=== PATIENT | male | born 1955 | race Caucasian/White ===

== ENCOUNTER 2017-03-16 23:37 | Inpatient (IN) ==
--- NOTE | 2017-03-17 00:03 | Emergency Department Note ---
START Narrative - START START: I examined this patient and my medical decision-making was reviewed with the PAYROLL OFFICER/PA/Advanced Practice Nurse/Resident Physician. I agree with the documented findings, disposition and treatment plan as described except to the extent set forth below. ED attending note: Patient seen with emergency medicine resident Dr. Boogie. Please see a copy of his note for details of the H&P, evaluation, management and disposition of this patient. We independently had [id number] contact with the patient Briefly: 61-year-old male smoker COPD coronary artery disease with one prior stent 2 years ago presents with 2 days of chest pain. Some mild worsening. Patient's EKG shows sinus rhythm with nonspecific ST-T changes. Plan his chest x-ray troponin duo nebs among other screening labs with admission. Provided 30 minutes critical care service for this patient had aspirin given in the ED. Admission pending
[2017-03-17] MEDS ORDERED: Nitroglycerin 0.4 MG TAB.SUBL SL PRN (00:06)
--- NOTE | 2017-03-17 00:07 | Emergency Department Note ---
Disposition Clinical Impression: NSTEMI, initial episode of care Disposition: Admitted As Inpatient Condition: Undetermined Referrals: NO,PCP [Primary Care Provider] - Forms: ED Satisfaction Letter Time of Disposition: 00:58 Chest Pain HPI - General Chief Complaint: ED Chest Pain Stated Complaint: chest pain Time Seen by Provider: 03/16/17 23:52 Source: patient, family Mode of arrival: ambulatory Limitations: no limitations Vital Signs Reviewed: Yes Nursing Notes Reviewed: Yes - History of Present Illness HPI Narrative: 61-year-old male with extensive history of coronary artery disease, hypertension , hyperlipidemia arrives to [facility] emergency Department complaining of retrosternal chest pain that is nonradiating as well as difficulty breathing. The patient does have a history of COPD as well. The patient's O2 saturation is 84% on room air initially. He was placed on 2 L nasal cannula which malika to 92%. The patient does have diffuse wheezing noted. The patient states this does not feel similar to his previous CT. The patient has been experiencing bilateral lower extremity swelling over the course of the past 2 weeks. He actually was increasing his Lasix by his PCP. The patient has been taking his medication as prescribed. He denies any other complaints at this time. Pt complaint: chest pain Onset (ago): day(s) (3) Duration: intermittent, gradually worsening Onset: during rest Pain Location: substernal Severity: moderate Severity scale (1-10): 8 Quality: tightness Pain Radiation: none Improves with: nothing Worsens with: nothing Associated symptoms: Reports: dyspnea Treatments prior to arrival chest pain: none - Related Data On Oral Contraceptives: No Allergies Allergy/AdvReac Type Severity Reaction Status Date / Time Penicillins Allergy Hives Verified 06/16/15 15:07 Sulfa (Sulfonamide Allergy Hives Verified 06/16/15 15:07 Antibiotics) All systems ED: reviewed and negative except as stated. Constitutional: Denies: fever, chills, weakness, weight change Eyes: Denies: eye pain, eye discharge, vision change ENT ED: Denies: ear pain, throat pain, dental pain, hearing loss, epistaxis, congestion, dysphagia Cardiovascular: Reports: chest pain, dyspnea on exertion, edema. Denies: palpitations, syncope Respiratory: Reports: dyspnea, wheezes. Denies: cough, hemoptysis, stridor Gastrointestinal: Denies: abdominal pain, nausea, vomiting, diarrhea, constipation, hematemesis, melena, hematochezia Genitourinary: Denies: urgency, dysuria, frequency, hematuria Musculoskeletal: Denies: back pain, neck pain, arthralgia, myalgia Integumentary: Denies: rash, abrasion, lesions Neurological: Denies: headache, weakness, numbness, paresthesias, confusion, abnormal gait, vertigo Chest Pain PMH - Past Medical History Medical history: Reports: COPD, diabetes, myocardial infarction - Social History Smoking Status: Current every day smoker Alcohol use: Reports: none Drug use: Reports: none Physical Exam - General Limitations: no limitations General appearance: alert, in no apparent distress - Head Head exam: atraumatic, normocephalic, normal inspection - Neck Neck exam: Present: normal inspection, full ROM, trachea midline - Chest Chest inspection: Present: normal inspection, symmetric chest wall rise - Respiratory Respiratory exam: Present: respiratory distress (mild), wheezes, accessory muscle use - Cardiovascular Cardiovascular exam: Present: regular rate, normal rhythm, normal heart sounds - Abdominal Exam Abdominal exam: Present: soft, Non-Tender. Absent: tenderness, distention, guarding, rebound, rigidity - Extremities Exam Extremities exam: Present: full ROM, pedal edema (2+ pitting). Absent: tenderness - Neurological Exam Neurological exam: Present: alert, oriented X3 - Skin Skin exam: Present: warm, dry, intact, normal color Course Vital Signs Temperature 98.0 F 03/16/17 23:38 Pulse Rate 91 03/16/17 23:38 Respiratory Rate 18 03/16/17 23:38 Blood Pressure 191/78 03/16/17 23:38 O2 Sat by Pulse Oximetry 88 03/16/17 23:38 Temperature 98.0 F 03/16/17 23:38 Pulse Rate 86 03/17/17 00:51 Respiratory Rate 20 03/17/17 00:51 Blood Pressure 170/92 03/17/17 00:51 O2 Sat by Pulse Oximetry 96 03/17/17 00:51 Oxygen Delivery Oxygen Delivery Nasal Cannula Chest Pain - MDM Narrative Medical decision making narrative: Patient has an elevated troponin of 0.07. No previous history of troponin or record. The patient does have improvement of his renal function. The patient' s EKG demonstrates no acute findings. The patient is hypotensive. We will administer nitroglycerin as well as 1 dose of labetalol. The patient's latest blood pressure demonstrates a systolic of 171 after receiving the nitroglycerin. We will admit the patient to the hospitalist for further workup. Accepted by Dr. Hawthorne. She requested IV Lasix. - Medical Records Medical records reviewed: Yes I reviewed the patient's medical records. - Lab Data Lab results reviewed: Yes I reviewed the patient's lab results. Result diagrams: 03/16/17 23:45 03/16/17 23:45 Lab Results 03/16/17 03/16/17 03/16/17 Range/Units 23:45 23:45 23:45 WBC 12.1 H (4.3-11.1) K/mcL RBC 5.19 (4.19-5.50) M/mcL Hgb 14.1 (12.9-16.9) g/dL Hct 45.4 (37.5-50.1) % MCV 87.5 (83.0-100.0) fL MCH 27.2 L (28.0-33.3) pg MCHC 31.1 L (31.6-35.5) g/dL RDW 14.7 H (11.5-14.5) % Plt Count 376 (140-400) K/mcL MPV 9.2 L (9.4-12.4) fL Immature Gran % 0.2 (0-4) % Seg Neutrophils % 62.7 % Lymphocytes % 24.4 % Monocytes % 9.3 % Eosinophils % 2.7 % Basophils % 0.7 % Neutrophils # 7.6 (1.6-8.9) K/mcL Lymphocytes # 3.0 (0.6-4.6) K/mcL Monocytes # 1.1 (0.0-1.3) K/mcL Eosinophils # 0.3 (0.0-0.6) K/mcL Basophils # 0.1 (0.0-0.2) K/mcL Immature Plt Fraction 2.7 (1.1-6.1) % Sodium 138 (136-145) mEq/L Potassium 4.0 (3.5-4.5) mEq/L Chloride 97 L (98-109) mEq/L Carbon Dioxide 31 H (19-29) mEq/L BUN 17 (8-26) mg/dL Creatinine 1.46 H (0.72-1.25) mg/dL Est GFR ( Amer) 59 L (> 60) Est GFR (Non-Af Amer) 49 L (> 60) BUN/Creatinine Ratio 12 (6-26) Glucose 107 H (70-99) mg/dL Calculated Osmolality 288 (280-300) Calcium 9.6 (8.6-10.8) mg/dL Troponin I 0.07 H* (0-0.03) ng/mL - Radiology Data Radiology results reviewed: Yes I reviewed the patient's radiology results. - EKG Data EKG attestation: Yes I reviewed and interpreted this EKG. EKG results narrative: Heart rate 90 bpm. WI interval 144 ms. QTc 381 ms. Normal axis. Normal sinus rhythm. No ST elevation or ST depression noted. Recent EKG on record.
[2017-03-17 00:08] LABS: Basophils # 0.1 K/mcL (0.0-0.2); Basophils % 0.7 %; Eosinophils # 0.3 K/mcL (0.0-0.6); Eosinophils % 2.7 %; Hematocrit 45.4 % (37.5-50.1); Hemoglobin 14.1 g/dL (12.9-16.9); Immature Granulocytes % 0.2 % (0-4); Immature Platelets 2.7 % (1.1-6.1); Lymphocytes % 24.4 %; Mean Corpuscular HGB Conc 31.1 g/dL (31.6-35.5); Mean Corpuscular Hemoglobin 27.2 pg (28.0-33.3); Mean Corpuscular Volume 87.5 fL (83.0-100.0); Mean Platelet Volume 9.2 fL (9.4-12.4); Monocytes # 1.1 K/mcL (0.0-1.3); Monocytes % 9.3 %; Neutrophils # 7.6 K/mcL (1.6-8.9); Platelet Count 376 K/mcL (140-400); Red Blood Count 5.19 M/mcL (4.19-5.50); Red Cell Distribution Width 14.7 % (11.5-14.5); Segmented Neutrophils % 62.7 %
[2017-03-17] MEDS ORDERED: Aspirin 325 MG TABLET PO ONE (00:08)
[2017-03-17 00:20] LABS: Calcium 9.6 mg/dL (8.6-10.8)
[2017-03-17] MEDS ORDERED: Furosemide 40 MG/4 ML VIAL IVP ONE (00:50)
[2017-03-17] MEDS ORDERED: *HR* Labetalol 20 MG/4 ML SYRINGE IVP ONE (00:55)
[2017-03-17] MEDS ORDERED: *HR* Heparin 5,000 UNIT/ML VIAL IVP PRN ×2 (00:56)
[2017-03-17] MEDS ORDERED: *HR* Heparin 5,000 UNIT/ML VIAL IVP ONE (00:56)
[2017-03-17] MEDS ORDERED: Heparin 25,000 UNIT/500 ML D5W 25,000 UNIT/500 ML MLS IVC SCH (01:00)
[2017-03-17 01:19] LABS: Prothrombin Time 10.3 Seconds (9.4-12.1)
[2017-03-17 01:22] LABS: Activated Partial Thrombo Time 30.9 Seconds (26.0-36.0)
[2017-03-17] MEDS ORDERED: Naloxone 0.4 MG/ML INJ IVP PRN (02:44)
[2017-03-17] MEDS ORDERED: Ondansetron 4 MG/2 ML VIAL IVP PRN (02:44)
[2017-03-17] MEDS ORDERED: Dextrose Gel 15 GM PO PRN ×2 (02:48)
[2017-03-17] MEDS ORDERED: *HR* Dextrose 50 % in Water (Syg) 50 ML SYRINGE IVP PRN (02:48)
[2017-03-17] MEDS ORDERED: D5% in Water 1,000 ML IVC PRN (02:48)
--- NOTE | 2017-03-17 02:55 | Internal Med History&Physical ---
Date of Encounter: 03/17/17 Time of Encounter: 02:20 Assessment and Plan (1) NSTEMI (non-ST elevated myocardial infarction) Current visit: Yes Status: Acute No prior history of elevated TNI in chart mild elevation TNI can be secondary to demand ischemia, given CKD and CHF decompensation, however given clinical presentation and history of CAD, will admit to rule out ACS F/U Serial TNI Heparin gtt initiated by ER follow up cardiology consultation Aspirin f/u lipid panel O2 supplementation as needed nitroglycerin SL prn chest pain continue tele monitoring NPO at this time, awaiting cardiology evaluation Please resume home medications after verifying them in the morning (2) CAD (coronary artery disease) Current visit: Yes Status: Chronic History of CAD s/p stent placement five years ago as per patient resume home medications after verification f/u cardiology consultation Qualifiers: Coronary Disease-Associated Artery/Lesion type: unspecified vessel or lesion type [place] vs. transplanted heart: unspecified whether [place] or transplanted heart Associated angina: angina presence unspecified Qualified Code(s): I25.10 - Atherosclerotic heart disease of [place] coronary artery without angina pectoris (3) Acute exacerbation of CHF (congestive heart failure) Current visit: Yes Status: Acute 2D echo from 01/03/17 reported LVEF of 60% with Normal LV chamber size and function. Mild LV diastolic dysfunction will continue Lasix 40mg IV BID monitor I/Os daily weights fluid restriction diet once diet is resumed O2 supplementation as needed Qualifiers: Congestive heart failure type: diastolic Qualified Code(s): I50.33 - Acute on chronic diastolic (congestive) heart failure (4) HTN (hypertension) Current visit: Yes Status: Chronic Noted to be hypertensive Unsure of what his home medications are Will start Hydralazine 10mg IV q6h prn SBP>160 will closely monitor BP resume home meds after verification Qualifiers: Hypertension type: essential hypertension Qualified Code(s): I10 - Essential (primary) hypertension (5) Diabetes mellitus Current visit: Yes Status: Chronic hold oral antihyperglycemics at this time (pt reports of taking metformin) started sliding scale insulin algorithm as needed monitor accuchecks q6h while NPO and ACHS once diet is resumed Qualifiers: Diabetes mellitus type: type 2 Diabetes mellitus complication status: with unspecified complications Diabetes mellitus intermediate project manager insulin use: unspecified nursing home insulin use status Qualified Code(s): E11.8 - Type 2 diabetes mellitus with unspecified complications (6) Tobacco abuse Current visit: Yes Status: Acute Smoking cessation counseling provided patient not ready to quit at this time he reports of having hives to nicotine patch (7) DVT prophylaxis Current visit: Yes Status: Acute anticoagulated with heparin gtt Internal Medicine - H&P: HPI Chief complaint: SHORTNESS OF BREATH/CHEST PAIN Plans for Post Hospital Care: Home History of present illness: Mr. Joseph is a 61 year old male with PMH of DM, CAD s/p stent placement, CHF , COPD, CKD, chronic tobacco abuse, HTN, HLD who presents to the ER for management of shortness of breath and chest pain. Patient states he should have come to the ER four days ago because he has had his current symptoms for the last four days. Reports of having localized substernal chest pain for the last four days associated with shortness of breath. He states his home pulse ox reported his O2 level of 76 which prompted his visit to the ER. Upon arrival, he was placed on O2 supplementation with improvement in his respiratory status. He also received nitroglycerin SL which relieved his chest pain. He also received one dose of IV lasix in the ER. At this time, he is resting comfortably in bed and saturating 98% on 2L NC. Reports of feeling significantly better since arrival. Denies any chest pain at this time. States he had a CA five years ago and had a stent placed in [place] and has not seen a counselor camp since then. Reports of being an everyday smoker. Not on home oxygen. Denies any discomfort at this time. Patient does not recall his home medications. Please verify home meds in am and restart them as needed Past Med Surg Social Fam HX - Past Medical History Medical history: COPD, diabetes, myocardial infarction - Social History Smoking Status: Current every day smoker Smokeless Tobacco Status: No Alcohol use: none Drug use: none Internal Medicine - H&P: Meds Allergies Penicillins Allergy (Verified 06/16/15 15:07) Hives Sulfa (Sulfonamide Antibiotics) Allergy (Verified 06/16/15 15:07) Hives All Systems PM: A 10-system review of systems was performed and is negative for pertinent findings except as documented above in the HPI. - Constitutional Constitutional: as per HPI - Constitutional Vitals: Temp Pulse Resp BP Pulse Ox 98.0 F 84 16 175/95 95 03/17/17 02:29 03/17/17 02:29 03/17/17 02:29 03/17/17 02:29 03/17/17 02:29 General appearance: Present: cooperative, A&O X 3, no acute distress, answers questions appropriately - Head Head exam: Present: atraumatic, normocephalic - Eye Eye exam: Present: normal appearance, conjuntiva pink, sclera anicteric - Respiratory Respiratory exam: Absent: respiratory distress, wheezes (bibasilar crackles ) - Cardiovascular Cardiovascular exam: Present: RRR, +S1, +S2. Absent: diastolic murmur, gallop, rubs, systolic murmur - GI/Abdominal GI/Abdominal exam: Present: normal bowel sounds, soft, no peritoneal signs. Absent: distended, tenderness - Extremities Exam Extremities exam: Present: pedal edema (pitting edema in bilateral lower extremities), warm, radial pulses palpable and symetrical. Absent: calf tenderness - Neurological Exam Neurological exam: Present: oriented X3, no focal deficits - Psychiatric Psychiatric exam: Present: normal affect, normal mood Internal Med - H&P Results - Labs CBC & Chem 7: 03/16/17 23:45 03/16/17 23:45
[2017-03-17] MEDS ORDERED: Ipratropium/Albuterol Neb 3 ML IH PRN (02:56)
[2017-03-17 06:17] LABS: Basophils # 0.1 K/mcL (0.0-0.2); Basophils % 0.9 %; Eosinophils # 0.2 K/mcL (0.0-0.6); Hematocrit 43.3 % (37.5-50.1); Hemoglobin 13.5 g/dL (12.9-16.9); Immature Granulocytes % 0.2 % (0-4); Lymphocytes # 1.9 K/mcL (0.6-4.6); Lymphocytes % 19.9 %; Mean Corpuscular HGB Conc 31.2 g/dL (31.6-35.5); Mean Corpuscular Hemoglobin 26.9 pg (28.0-33.3); Mean Corpuscular Volume 86.4 fL (83.0-100.0); Mean Platelet Volume 9.1 fL (9.4-12.4); Monocytes # 0.8 K/mcL (0.0-1.3); Monocytes % 7.9 %; Neutrophils # 6.6 K/mcL (1.6-8.9); Platelet Count 316 K/mcL (140-400); Red Blood Count 5.01 M/mcL (4.19-5.50); Red Cell Distribution Width 14.6 % (11.5-14.5); Segmented Neutrophils % 69.1 %
[2017-03-17] MEDS: Insulin LISPRO 300 UNITS/3 ML VIAL SQ SCH ×3 (06:29→16:31)
[2017-03-17] MEDS: *HR* Metoprolol 5 MG/5 ML VIAL IVP SCH ×2 (06:30→16:42)
[2017-03-17 06:31] LABS: BUN/Creatinine Ratio 12 (6-26); Blood Urea Nitrogen 16 mg/dL (8-26); Calcium 9.3 mg/dL (8.6-10.8); Carbon Dioxide 30 mEq/L (19-29); Chloride 97 mEq/L (98-109); Glucose 122 mg/dL (70-99); Osmolality,Calculated 284 (280-300); Potassium 3.6 mEq/L (3.5-4.5); Sodium 136 mEq/L (136-145); eGFR For African Americans > 60 (> 60); eGFR For Non-African Americans 55 (> 60)
[2017-03-17 06:32] LABS: Chol/HDL Ratio 4.4 (0-4.9); Magnesium 1.7 mg/dL (1.6-2.6); Phosphorous 2.6 mg/dL (2.3-4.7)
[2017-03-17] MEDS: Aspirin 81 MG TAB.CHEW PO SCH (08:33)
[2017-03-17] MEDS: Furosemide 40 MG/4 ML VIAL IVP SCH ×2 (08:34→16:31)
--- NOTE | 2017-03-17 09:18 | Cardiology Consult Note ---
Date of Encounter: 03/17/17 Time of Encounter: 09:14 Assessment and Plan (1) Troponin level elevated Current Visit: Yes Status: Acute Very mild, flat troponin elevation in setting of A/CKD and respiratory insufficiency. PUmonary congestion on CXR - ? mild CHF. Single dose of Rhonchi, low pulse ox, likely COPD exacerbation. Recommend obtain echocardiogram. Further recommendations based upon results. Your medical managment re: COPD, ANAHI. Patient requesting to leave [facility]. He states he cannot go much longer without smoking a cigarette. I explained to him that further recommendations would be made based upon results of echocardiogram. Okay to stop Heparin drip - change to DVT prophylaxis. Given history of CAD, recommend aspirin/statin/bb therapy. Tobacco cessation is imperative, but he is not interested in quitting. (2) CAD (coronary artery disease) Current Visit: Yes Status: Chronic Qualifiers: Coronary Disease-Associated Artery/Lesion type: unspecified vessel or lesion type [place] vs. transplanted heart: unspecified whether [place] or transplanted heart Associated angina: angina presence unspecified Qualified Code(s): I25.10 - Atherosclerotic heart disease of [place] coronary artery without angina pectoris Discussion w patient/family: The assessment and plan as outlined above was discussed with the patient and/or family members who expressed understanding and agreement. All questions were answered. Thank you for involving us in the care of your patient. Please call with any questions. History of Present Illness Consult date: 03/17/17 Requesting physician: Irma Hawthorne Consult reason: Chest pain, mild troponin elevation Chief complaint: Dyspnea, chest discomfort History of present illness: Mr. Joseph is a 61 year old male who presents with 4 days of increasing dyspnea and chest discomfort. Describes chronic dyspnea, but states worse. He will not clearly describe chest discomfort - from what I can gather, substernal, no radiation, no n/v, no diaphoresis. Possible worse with cough. Prior CAD s/p PCI at a [facility] about 4 years ago. Mild, flat troponin 0.07, 0.07. Cr 1.46, now 1.33 Per reports, SpO2 at home 70s%. Reports 1 PPD, not interested in cessation. Today, reports he feels better. Past Med Surg Social Fam HX - Past Medical History Medical history: COPD, diabetes, myocardial infarction Psychiatric history: anxiety - Social History Smoking Status: Current every day smoker Packs per day: 1 Smokeless Tobacco Status: No Alcohol use: none Drug use: none - Family History Mother Living Status: Age at : 77 Hx Family Cardiac Disorders: Yes Hx Family Respiratory Disorders: No Hx Family Cancer: No Hx Family GI Disorders: Yes Medications and Allergies Allergies Penicillins Allergy (Verified 06/16/15 15:07) Hives Sulfa (Sulfonamide Antibiotics) Allergy (Verified 06/16/15 15:07) Hives All Systems Review: A 10-system review of systems was performed and is negative for pertinent findings except as documented above in the HPI. - Cardiovascular Cardiovascular: as per HPI, chest pain at rest - Respiratory Respiratory: cough, dyspnea Physical Examination Vital Signs, Last 4 Hours Temp Pulse Resp BP Pulse Ox 03/17/17 06:39 98.3 F 80 16 157/76 91 General: Conversant, No Apparent Distress HEENT: Atraumatic, Normocephaly, Mucus Membranes Moist Neck: No JVD Cardiac: Reg Rate and Rhythm, Normal S1 and S2, No Murmur Lungs: Other (Scattered rhonchi. No wheezing. ) Abdomen: Soft, Non-Tender, Other (obese) Skin: No rashes noted on visualized skin Musculoskeletal: No Chest Wall Tenderness Extremities: No Clubbing, No Cyanosis, Other (Mild edema. ) Results 03/17/17 06:09 03/17/17 06:09 Lab Results 03/17/17 03/17/17 03/17/17 06:09 06:09 06:09 WBC 9.5 Hgb 13.5 Hct 43.3 Plt Count 316 APTT Sodium 136 Potassium 3.6 Chloride 97 L Carbon Dioxide 30 H BUN 16 Creatinine 1.33 H Glucose 122 H Calcium 9.3 Magnesium 1.7 Troponin I 03/17/17 03/17/17 06:09 07:55 WBC Hgb Hct Plt Count APTT 36.0 Sodium Potassium Chloride Carbon Dioxide BUN Creatinine Glucose Calcium Magnesium Troponin I 0.07 H* - Imaging and Cardiology Chest Xray: report reviewed - EKG Interpretation EKG results cardiology: other (ECG(s) cannot be found - not in epiphany, not in meditech) Consult Discharge Plan - Plan Referrals: Madelaine Russell, GAS CONTROLLER [Primary Care Provider] -
--- NOTE | 2017-03-17 10:55 | Event Note ---
Date of Encounter: 03/17/17 Time of Encounter: 10:51 TTE reviewed, which demonstrates normal LV function. No segmental wall motion abnormalities. Flat, adynamic troponin elevation likely related to A/CKD and hypoxemia. Given normal LV function on TTE, recommend medical therapy. Currently, patient chest pain free. Recommend aspirin/statin/bb therapy. Risk factor modification emphasized - tobacco cessation is imperative. No further inpatient cardiology recommendations appear necessary at this time. Follow up with cardiology in the office. Please call with any questions or concerns.
[2017-03-17] MEDS: Metoprolol XL (24 HR) Succ 25 MG TAB.ER.24H PO SCH (11:03)
--- NOTE | 2017-03-17 11:20 | Internal Med Progress Note ---
Date of Encounter: 03/17/17 Time of Encounter: 11:20 - Assessment and plan (1) NSTEMI (non-ST elevated myocardial infarction) Current Visit: Yes Status: Acute Assessment and plan: We will continue with aspirin, metoprolol and Lipitor, serial troponins every 6 hours for a total of 3 sets. Appreciate cardiology recommendations. (2) Acute exacerbation of CHF (congestive heart failure) Current Visit: Yes Status: Acute Assessment and plan: IV Lasix twice a day. Daily weights. Fluid restriction. Sodium restricted diet. Qualifiers: Congestive heart failure type: diastolic Qualified Code(s): I50.33 - Acute on chronic diastolic (congestive) heart failure (3) HTN (hypertension) Current Visit: Yes Status: Chronic Assessment and plan: Continue oral antihypertensive medication. Qualifiers: Hypertension type: essential hypertension Qualified Code(s): I10 - Essential (primary) hypertension (4) Tobacco abuse Current Visit: Yes Status: Acute Assessment and plan: I have offered smoking cessation counseling. Patient is refractory at this time. He does not want nicotine replacement therapy. (5) DVT prophylaxis Current Visit: Yes Status: Acute (6) Diabetes mellitus Current Visit: Yes Status: Chronic Assessment and plan: Insulin sliding scale. Qualifiers: Diabetes mellitus type: type 2 Diabetes mellitus complication status: with unspecified complications Diabetes mellitus longterm insulin use: unspecified gear straightener insulin use status Qualified Code(s): E11.8 - Type 2 diabetes mellitus with unspecified complications (7) COPD (chronic obstructive pulmonary disease) Current Visit: Yes Status: Acute Assessment and plan: Inhaled albuterol as needed. Qualifiers: COPD type: chronic bronchitis Chronic bronchitis type: simple Qualified Code(s): J41.0 - Simple chronic bronchitis (8) CAD (coronary artery disease) Current Visit: Yes Status: Chronic Qualifiers: Coronary Disease-Associated Artery/Lesion type: unspecified vessel or lesion type [place] vs. transplanted heart: unspecified whether [place] or transplanted heart Associated angina: angina presence unspecified Qualified Code(s): I25.10 - Atherosclerotic heart disease of [place] coronary artery without angina pectoris - Subjective Interval history: Patient came to the hospital yesterday for evaluation of chest pain described as midsternal, pressure-like, severe occurring at rest. The pain has resolved. He says he does not have chest pain provide 5/10 chest pressure in the middle of his chest right now. - Constitutional Vitals: Temp Pulse Resp BP Pulse Ox 98 F 89 16 160/87 91 03/17/17 11:13 03/17/17 11:13 03/17/17 11:13 03/17/17 11:13 03/17/17 11:13 General appearance: Present: cooperative, A&O X 3, no acute distress, answers questions appropriately - Eye Eye exam: Present: PERRL, conjuntiva pink, sclera anicteric Pupils: Present: PERRL - Respiratory Respiratory exam: Present: CTAB. Absent: accessory muscle use, rales, rhonchi, wheezes - Cardiovascular Cardiovascular exam: Present: RRR, +S1, +S2. Absent: diastolic murmur, gallop, rubs, systolic murmur - GI/Abdominal GI/Abdominal exam: Present: normal bowel sounds, soft, no peritoneal signs. Absent: distended, tenderness - Extremities Exam Extremities exam: Present: warm, radial pulses palpable and symetrical. Absent : calf tenderness, cyanotic, pedal edema - Skin Skin exam: Present: dry, intact Internal Medicine: Result - Labs CBC & Chem 7: 03/17/17 06:09 03/17/17 06:09 Labs: Short CBC 03/17/17 Range/Units 06:09 WBC 9.5 (4.3-11.1) K/mcL Hgb 13.5 (12.9-16.9) g/dL Hct 43.3 (37.5-50.1) % Plt Count 316 (140-400) K/mcL Neutrophils # 6.6 (1.6-8.9) K/mcL BMP 03/17/17 06:09 Sodium 136 Potassium 3.6 Chloride 97 L Carbon Dioxide 30 H BUN 16 Creatinine 1.33 H Glucose 122 H Calcium 9.3 Cardiac Enzymes 03/17/17 Range/Units 06:09 Troponin I 0.07 H* (0-0.03) ng/mL - ABG Interpretation ABG results: PT/INR, D-dimer PT 10.3 Seconds (9.4-12.1) 03/16/17 01:05 - EKG Interpretation EKG Interpreted by Myself: Yes EKG shows normal: sinus rhythm, QRS complexes Consult Discharge Plan - Plan Referrals: Madelaine Russell, ENGINEER FIRST ASSISTANT [Primary Care Provider] -
[2017-03-17] MEDS: *HR* Heparin 5,000 UNIT/ML VIAL SQ SCH ×2 (14:20→21:07)
[2017-03-17] MEDS: *HR* LORazepam 0.5 MG TABLET PO PRN ×2 (16:31→21:50)
[2017-03-17 16:59] LABS: Calcium 9.8 mg/dL (8.6-10.8); Potassium 4.3 mEq/L (3.5-4.5)
[2017-03-18] MEDS ORDERED: *HR* Metoprolol 5 MG/5 ML VIAL IVP ONE (01:11)
[2017-03-18] MEDS: Insulin LISPRO 300 UNITS/3 ML VIAL SQ SCH ×2 (01:29→05:23)
[2017-03-18 04:31] LABS: Basophils % 0.6 %; Mean Platelet Volume 9.6 fL (9.4-12.4); Red Cell Distribution Width 14.7 % (11.5-14.5)
[2017-03-18 04:35] LABS: Calcium 9.5 mg/dL (8.6-10.8); Potassium 3.6 mEq/L (3.5-4.5)
[2017-03-18 04:39] LABS: Basophils # 0.1 K/mcL (0.0-0.2); Eosinophils # 0.2 K/mcL (0.0-0.6); Eosinophils % 1.7 %; Hematocrit 45.2 % (37.5-50.1); Hemoglobin 14.3 g/dL (12.9-16.9); Immature Granulocytes % 0.3 % (0-4); Immature Platelets 3.2 % (1.1-6.1); Lymphocytes # 2.2 K/mcL (0.6-4.6); Lymphocytes % 22.6 %; Mean Corpuscular HGB Conc 31.6 g/dL (31.6-35.5); Mean Corpuscular Hemoglobin 26.8 pg (28.0-33.3); Mean Corpuscular Volume 84.6 fL (83.0-100.0); Monocytes # 0.8 K/mcL (0.0-1.3); Monocytes % 8.8 %; Neutrophils # 6.3 K/mcL (1.6-8.9); Platelet Count 330 K/mcL (140-400); Red Blood Count 5.34 M/mcL (4.19-5.50)
[2017-03-18] MEDS: *HR* LORazepam 0.5 MG TABLET PO PRN (04:55)
[2017-03-18] MEDS: *HR* Heparin 5,000 UNIT/ML VIAL SQ SCH (05:20)
[2017-03-18 06:52] VITALS: BP 182/102
[2017-03-18] MEDS: Metoprolol XL (24 HR) Succ 25 MG TAB.ER.24H PO SCH (09:29)
[2017-03-18] MEDS: Furosemide 40 MG/4 ML VIAL IVP SCH (09:29)
[2017-03-18] MEDS: Aspirin 81 MG TAB.CHEW PO SCH (09:29)
--- NOTE | 2017-03-18 09:50 | Discharge Summary ---
Date of Encounter: 03/18/17 Time of Encounter: 09:46 - Discharge Diagnosis (1) NSTEMI (non-ST elevated myocardial infarction) Priority: Secondary Status: Acute (2) Acute exacerbation of CHF (congestive heart failure) Priority: Primary Status: Acute Qualifiers: Congestive heart failure type: diastolic Qualified Code(s): I50.33 - Acute on chronic diastolic (congestive) heart failure (3) HTN (hypertension) Priority: Secondary Status: Chronic Qualifiers: Hypertension type: essential hypertension Qualified Code(s): I10 - Essential (primary) hypertension (4) Tobacco abuse Priority: Secondary Status: Acute (5) DVT prophylaxis Priority: Secondary Status: Acute (6) Diabetes mellitus Priority: Secondary Status: Chronic Qualifiers: Diabetes mellitus type: type 2 Diabetes mellitus complication status: with unspecified complications Diabetes mellitus assisted 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 transplanted heart: unspecified whether [place] or transplanted heart Associated angina: angina presence unspecified Qualified Code(s): I25.10 - Atherosclerotic heart disease of [place] coronary artery without angina pectoris - Discharge Medications Prescriptions: Carvedilol [Coreg] 25 mg PO BIDWM #60 tablet Home Medications: Albuterol Sulfate [Ventolin Hfa] 2 puff IH Q4H PRN 03/17/17 [History] Aspirin [Lo-Dose Aspirin EC] 81 mg PO DAILY 03/17/17 [History] Fluticasone/Salmeterol [Advair Hfa 230-21 Mcg Inhaler] 2 puff IH BID 03/17/17 [ History] Furosemide [Lasix] 40 mg PO DAILY 03/17/17 [History] Gabapentin [Neurontin] 600 mg PO TID 03/17/17 [History] LORazepam [Ativan] 0.5 mg PO BID PRN 03/17/17 [History] Lisinopril [Zestril] 10 mg PO DAILY 03/17/17 [History] Metformin HCl [Metformin HCl ER] 500 mg PO BID 03/17/17 [History] Tramadol HCl [Ultram] 50 mg PO TID PRN 03/17/17 [History] Carvedilol [Coreg] 25 mg PO BIDWM #60 tablet 03/18/17 [Rx] Allergies/Adverse Reactions: Allergies Penicillins Allergy (Verified 06/16/15 15:07) Hives Sulfa (Sulfonamide Antibiotics) Allergy (Verified 06/16/15 15:07) Hives Procedures/tests Complete & Pending: Procedures Performed prior 72 hours Category Date Time Status ECG 12 lead ECG [ECG] Routine Y 03/17/17 09:28 Ordered EV limited echocardiogram Routine Y 03/17/17 09:28 Completed Date of admission: 03/17/17 02:44 Primary care physician: Madelaine Russell CNP Consults: 03/17/17 02:46 Consult to Cardiology [CONS] Routine Comment: Consulting Provider: Cardiology Charisse Reason for Consult: elevated TNI, chest pain relieved with Nitroglycerin, history of CAD s/p stent placement Call Completed: No - Patient Status Disposition: Home, Self-Care Condition: Good Functional capacity at discharge: independent ambulation Overall status at discharge: patient is back to baseline - Discharge Instructions Follow Up With: Madelaine Russell CNP [Primary Care Provider] - Additional Instructions: Please refrain from smoking as much as possible. Following a sodium restricted diet and a fluid restriction of 1200 mL to 1500 mL daily based on your level of activity. Follow-up with PCP within one week. Your blood pressure medication has been increased and we advised her to check her blood pressure at least once daily. - Diet and Activity Activity: increase activity as tolerated Diet: diabetic diet, low salt diet Hospital course: Mr. Joseph is a 61 year old male with past medical history significant for hypertension, chronic kidney disease, CAD status post DE and stent placement, chronic diastolic heart failure, tobacco abuse and type 2 diabetes who presented to the hospital for evaluation of chest pain and shortness of breath. He reported ongoing chest pain associated with dyspnea. He checked his oxygen level at home and it was reportedly down to 76% which prompted him to come to the hospital. Upon initial workup his chest x-ray showed interstitial edema. His initial oxygen saturation was 88%. EKG was nondiagnostic and troponin was 0.07. He was admitted to the medical service. He was treated with IV heparin infusion and intravenous Lasix. He had a good diuretic response. His chest pain had resolved after administration of nitroglycerin and Lasix and has not recurred over the last 48 hours. Serial troponins remained borderline elevated at 0.07. Cardiology was consulted, they recommended aggressive medical therapy and risk factor modification. Echocardiogram showed preserved ejection fraction of 60% and LVH. He continued to receive diuresis with Lasix 40 mg IV twice a day and had a good response. He lost 1 kg during this 48 hour hospitalization. His lower extremity edema has improved significantly and shortness of breath has resolved. His oxygen saturation is 98% on room air. His blood pressure was elevated throughout this hospitalization and therefore his carvedilol will be increased to 25 mg twice a day. His kidney function is back to baseline. His creatinine is 1.46 today. He received extensive counseling regarding smoking cessation, compliance with low sodium diet and fluid restriction as well as follow-up with his PCP. He is currently medically stable for discharge and he expresses understanding and agreement with the discharge plan. Time spent discussing smoking cessation with patient: 3 to 10 minutes - Time Spent with Patient Total time spent providing and/or coordinating discharge services: Greater than 30 minutes - Constitutional Vitals: Temp Pulse Resp BP Pulse Ox 98.2 F 91 16 182/102 97 03/18/17 06:47 03/18/17 06:47 03/18/17 06:47 03/18/17 06:47 03/18/17 07:00 General appearance: Present: cooperative, A&O X 3, no acute distress, answers questions appropriately - Respiratory Respiratory exam: Present: CTAB. Absent: accessory muscle use, rales, rhonchi, wheezes - Cardiovascular Cardiovascular exam: Present: RRR, +S1, +S2. Absent: diastolic murmur, gallop, rubs, systolic murmur - GI/Abdominal GI/Abdominal exam: Present: normal bowel sounds, soft, no peritoneal signs. Absent: distended, tenderness - Extremities Exam Extremities exam: Present: pedal edema (1+ lower extremity pitting edema), warm , radial pulses palpable and symetrical. Absent: calf tenderness, cyanotic - Neurological Exam Neurological exam: Present: CN II-XII intact, oriented X3, no focal deficits. Absent: pronater drift, facial droop, speech deficit - Skin Skin exam: Present: dry, intact
--- NOTE | 2017-03-19 09:50 | Electrocardiograph Report ---
[place] [id number] Test Date: 2017-03-16 Pat Name: Atilio Joseph Department: 104 Room: 2NE17 Gender: M Fur Liner: : 1955 Requested By: Pavan Boogie Order Number: [id number] Reading MD: Leonides Amos MD Measurements Intervals [place] Rate: 90 P: 82 [place]: 144 QRS: 52 QRSD: 90 T: 52 QT: 334 QTc: 381 Interpretive Statements SINUS RHYTHM Poor R wave progression BASELINE ARTIFACT Electronically Signed On 03-19-2017 9:48:34 EDT by Leonides Amos MD
--- NOTE | 2017-03-19 09:53 | Electrocardiograph Report ---
[place] [id number] Test Date: 2017-03-17 Pat Name: Atilio Joseph Department: 111 Room: 2NE17 Gender: M Finger Cobbler: RAMO : 1955 Requested By: Faizan Mendoza Order Number: [id number] Reading MD: Leonides Amos MD Measurements Intervals [place] Rate: 93 P: 70 [place]: 133 QRS: 53 QRSD: 97 T: 51 QT: 362 QTc: 412 Interpretive Statements SINUS RHYTHM WITH OCCASIONAL VENTRICULAR PREMATURE COMPLEXES Electronically Signed On 03-19-2017 9:51:59 EDT by Leonides Amos MD
== END 2017-03-18 11:00 | disposition home or self-care (01) ==
LOC: 2NENU 23:37 → EMEROO 23:37 → 2NENU 03-17 02:17 → SUATTDRO 03-17 02:44
PROVIDERS: ADMIT Internal Medicine; ATTEND Internal Medicine

== ENCOUNTER 2017-03-29 10:48 | Inpatient (IN) ==
[2017-03-29] MEDS ORDERED: Propofol 500 MG/50 ML INFUS..BTL ONE (10:57)
--- NOTE | 2017-03-29 11:05 | Emergency Department Note ---
Disposition Clinical Impression: HCAP (healthcare-associated pneumonia), Severe sepsis, Acute kidney injury Respiratory failure Qualifiers: Chronicity: acute on chronic Respiratory failure complication: unspecified whether with hypoxia or hypercapnia Qualified Code(s): J96.20 - Acute and chronic respiratory failure, unspecified whether with hypoxia or hypercapnia Disposition: Admitted As Inpatient Condition: Critical Time of Disposition: 12:11 SOB HPI - General Chief Complaint: ED Shortness of Breath/Dyspnea Stated Complaint: Difficulty Breathing Time Seen by Provider: 03/29/17 10:59 Source: patient, EMS Limitations: no limitations Nursing Notes Reviewed: Yes Vital Signs Reviewed: Yes - History of Present Illness 56-year-old male presents with difficulty breathing. He comes in via EMS and unresponsive. He was found tripodding having a hard time breathing with initial saturations 60-70%. Currently 96% with bag valve mask with good ventilation. He is not answering questions. He was intubated to protect his airway. He reportedly had a temperature of 105.1. Patient was intubated with 7.5 ETT under RSI 20 mg Etomidate and 120 mg Succinylcholine. Good bilateral air sounds diminished on the left, no epigastric sounds, good colorimetry. Sepsis workup initiated. His initial BP is 171/90. Propofol for sedation. - Related Data Allergies Allergy/AdvReac Type Severity Reaction Status Date / Time Penicillins AdvReac Anaphylaxis Verified 03/29/17 11:11 Sulfa (Sulfonamide AdvReac Anaphylaxis Verified 03/29/17 11:11 Antibiotics) Limitations: ROS unobtainable due to patients medical condition (unresponsive) Past Medical History - Past Medical History Source: obtained from family Medical history: Reports: COPD - Social History Smoking Status: Unknown if ever smoked Smokeless Tobacco Status: No Alcohol use: Reports: none Drug use: Reports: none Physical Exam - General Limitations: no limitations General appearance: obtunded - Head Head exam: atraumatic, normocephalic, normal inspection - Eye Eye exam: Present: normal appearance, PERRL, EOMI - ENT ENT exam: normal exam, normal oropharynx, mucous membranes moist - Expanded ENT Exam External ear exam: Present: normal external inspection Nose exam: nasal deviation (left) Mouth exam: Present: normal external inspection Teeth exam: Present: other (dentures) - Chest Chest inspection: Present: normal inspection, symmetric chest wall rise. Absent : tenderness - Respiratory Respiratory exam: Present: normal lung sounds bilaterally, respiratory distress. Absent: wheezes, stridor - Expanded Respiratory Exam Location: rales: Right, decreased breath sounds: Left - Cardiovascular Cardiovascular exam: Present: regular rate, normal rhythm, normal heart sounds - Abdominal Exam Abdominal exam: Present: soft, Non-Tender, normal bowel sounds. Absent: tenderness, distention, guarding, rebound, rigidity - Extremities Exam Extremities exam: Present: normal inspection, full ROM, normal capillary refill. Absent: tenderness, pedal edema - Skin Skin exam: Present: warm Course - Reevaluation(s) Reevaluation #1: Daughter Is present at bedside. Reports that he was recently admitted here at [facility] for difficulty breathing and possible fluid around the heart just 1 week ago. He has a history of COPD on 2 L home oxygen supplementation as needed. She denies any history of congestive heart failure. He reportedly was short breath today and he has a pulse ox at home reportedly 60%. A rectal temp was obtained 102.5. Reviewed the chest x-ray reveals a right lower lobe pneumonia. Patient has been intubated. Patient was initially started on separate pain and vancomycin. Due to his allergy with penicillin pharmacy informed me in suggested switch to Levaquin. Due to the severity of his pneumonia will also at a 2nd antibiotic, according to current guidelines Imipenem is next choice, will start on Meropenem. Patient will need admission to the ICU for severe sepsis, lactate 2.6, started on triple antibiotics, HCAP, acute kidney injury, respiratory failure likely acute on chronic. Time: 12:07 Reevaluation #2: Have been in discussion with pharmacy they recommend due to his allergies to place on Aztreonam 2 g. Time: 12:26 Reevaluation #3: After 3 L normal saline patient has minimal urine output. His blood pressure continues to be on the lower systolic upper 80s. Bedside ultrasound performed showed a collapsed bladder. He has a good right IJ. Spoke with daughter and obtained consent of central line. Review of his medical records he was recently admitted 03/23/2017 for chest pain NSTEMI. ECHO performed EF 60-65% with LVH. Time: 12:41 - Consultations Consultation #1: Patient admitted to intensive this Dr. Soliz for respiratory failure, severe sepsis and pneumonia. No orders at this time. Time: 12:26 Vital Signs Temperature 0 F L 03/29/17 10:49 Pulse Rate 122 03/29/17 10:49 Respiratory Rate 38 03/29/17 10:49 Blood Pressure 171/91 03/29/17 10:49 O2 Sat by Pulse Oximetry 94 03/29/17 10:49 Temperature 102.9 F H 03/29/17 11:01 Pulse Rate 99 03/29/17 12:41 Respiratory Rate 14 03/29/17 12:41 Blood Pressure 91/50 03/29/17 12:41 O2 Sat by Pulse Oximetry 97 03/29/17 12:41 Oxygen Delivery Oxygen Delivery Ventilator Shortness of Breath/Dyspnea - Medical Records Medical records reviewed: Yes I reviewed the patient's medical records. - Lab Data Lab results reviewed: Yes I reviewed the patient's lab results. Result diagrams: 03/29/17 11:33 03/29/17 11:33 Lab Results 03/29/17 03/29/17 03/29/17 Range/Units 11:12 11:12 11:33 WBC 25.7 H (4.3-11.1) K/mcL RBC 5.09 (4.19-5.50) M/mcL Hgb 13.6 (12.9-16.9) g/dL Hct 46.3 (37.5-50.1) % MCV 91.0 (83.0-100.0) fL MCH 26.7 L (28.0-33.3) pg MCHC 29.4 L (31.6-35.5) g/dL RDW 15.1 H (11.5-14.5) % Plt Count 339 (140-400) K/mcL MPV 10.2 (9.4-12.4) fL Immature Gran % 0.7 (0-4) % Seg Neutrophils % 86.6 % Lymphocytes % 5.1 % Monocytes % 7.2 % Eosinophils % 0.2 % Basophils % 0.2 % Neutrophils # 22.3 H (1.6-8.9) K/mcL Lymphocytes # 1.3 (0.6-4.6) K/mcL Monocytes # 1.9 H (0.0-1.3) K/mcL Eosinophils # 0.1 (0.0-0.6) K/mcL Basophils # 0.1 (0.0-0.2) K/mcL Platelet Estimate Normal (Normal) PT (9.4-12.1) Seconds INR APTT (26.0-36.0) Seconds ABG pH 7.25 L (7.32-7.45) pH Units ABG pCO2 85 H* (35-45) mmHg ABG pO2 243 H (85-104) mmHg ABG HCO3 37.3 H (21-27) mEQ/L ABG Total CO2 39.9 H (20-26) mEq/L ABG O2 Saturation 100 H (95-98) % ABG Base Excess 6.8 H (-2.0 to 3.0) mEq/L Blood Gas Modality ASSIST CONTROL Inspired O2 100 % Sodium (136-145) mEq/L Potassium (3.5-4.5) mEq/L Chloride (98-109) mEq/L Carbon Dioxide (19-29) mEq/L BUN (8-26) mg/dL Creatinine (0.72-1.25) mg/dL Est GFR ( Amer) (> 60) Est GFR (Non-Af Amer) (> 60) BUN/Creatinine Ratio (6-26) Glucose (70-99) mg/dL Calculated Osmolality (280-300) Lactic Acid (0.5-2.2) mmol/L Calcium (8.6-10.8) mg/dL Phosphorus (2.3-4.7) mg/dL Magnesium (1.6-2.6) mg/dL Total Bilirubin (0.2-1.2) mg/dL Direct Bilirubin (0.0-0.5) mg/dL Indirect Bilirubin (0.0-1.2) mg/dL AST (5-34) Units/L ALT (0-55) Units/L Alkaline Phosphatase (38-126) Units/L Troponin I (0-0.03) ng/mL Serum Total Protein (6.0-8.3) g/dL Albumin (3.5-5.0) g/dL Globulin (2.4-3.5) g/dL Albumin/Globulin Ratio (1.1-2.2) Urine Color Yellow (Yellow) Urine Clarity Clear (Clear) Urine pH 6.5 (5.0-8.0) pH Units Ur Specific [place] 1.015 (1.010-1.025) Urine Protein 30 H (Neg-Trace) mg/dL Urine Glucose (UA) Normal (Normal) mg/dL Urine Ketones Negative (Negative) mg/dL Urine Blood Negative (Negative) Urine Nitrite Negative (Negative) Urine Bilirubin Negative (Negative) Urine Urobilinogen Normal (Normal) mg/dL Ur Leukocyte Esterase Negative (Negative) Urine Microscopic RBC 3-5 H (0-3) per hpf Urine Microscopic WBC 0-3 (0-3) per hpf Ur Squamous Epith Cells Many H (None-Few) per lpf Urine Bacteria None Seen (None-Few) per hpf Hyaline Casts None Seen (None-Few) per lpf Ur Culture Indicated? NO (NO) 03/29/17 03/29/17 03/29/17 Range/Units 11:33 11:33 11:33 WBC (4.3-11.1) K/mcL RBC (4.19-5.50) M/mcL Hgb (12.9-16.9) g/dL Hct (37.5-50.1) % MCV (83.0-100.0) fL MCH (28.0-33.3) pg MCHC (31.6-35.5) g/dL RDW (11.5-14.5) % Plt Count (140-400) K/mcL MPV (9.4-12.4) fL Immature Gran % (0-4) % Seg Neutrophils % % Lymphocytes % % Monocytes % % Eosinophils % % Basophils % % Neutrophils # (1.6-8.9) K/mcL Lymphocytes # (0.6-4.6) K/mcL Monocytes # (0.0-1.3) K/mcL Eosinophils # (0.0-0.6) K/mcL Basophils # (0.0-0.2) K/mcL Platelet Estimate (Normal) PT 11.0 (9.4-12.1) Seconds INR 1.0 APTT 25.4 L (26.0-36.0) Seconds ABG pH (7.32-7.45) pH Units ABG pCO2 (35-45) mmHg ABG pO2 (85-104) mmHg ABG HCO3 (21-27) mEQ/L ABG Total CO2 (20-26) mEq/L ABG O2 Saturation (95-98) % ABG Base Excess (-2.0 to 3.0) mEq/L Blood Gas Modality Inspired O2 % Sodium 138 (136-145) mEq/L Potassium 5.1 H (3.5-4.5) mEq/L Chloride 96 L (98-109) mEq/L Carbon Dioxide 35 H (19-29) mEq/L BUN 24 (8-26) mg/dL Creatinine 2.04 H (0.72-1.25) mg/dL Est GFR ( Amer) 40 L (> 60) Est GFR (Non-Af Amer) 33 L (> 60) BUN/Creatinine Ratio 12 (6-26) Glucose 215 H (70-99) mg/dL Calculated Osmolality 297 (280-300) Lactic Acid 2.6 H (0.5-2.2) mmol/L Calcium 9.1 (8.6-10.8) mg/dL Phosphorus 4.4 (2.3-4.7) mg/dL Magnesium 1.9 (1.6-2.6) mg/dL Total Bilirubin 0.4 (0.2-1.2) mg/dL Direct Bilirubin 0.2 (0.0-0.5) mg/dL Indirect Bilirubin 0.2 (0.0-1.2) mg/dL AST 11 (5-34) Units/L ALT 7 (0-55) Units/L Alkaline Phosphatase 104 (38-126) Units/L Troponin I (0-0.03) ng/mL Serum Total Protein 7.3 (6.0-8.3) g/dL Albumin 3.5 (3.5-5.0) g/dL Globulin 3.8 H (2.4-3.5) g/dL Albumin/Globulin Ratio 0.9 L (1.1-2.2) Urine Color (Yellow) Urine Clarity (Clear) Urine pH (5.0-8.0) pH Units Ur Specific [place] (1.010-1.025) Urine Protein (Neg-Trace) mg/dL Urine Glucose (UA) (Normal) mg/dL Urine Ketones (Negative) mg/dL Urine Blood (Negative) Urine Nitrite (Negative) Urine Bilirubin (Negative) Urine Urobilinogen (Normal) mg/dL Ur Leukocyte Esterase (Negative) Urine Microscopic RBC (0-3) per hpf Urine Microscopic WBC (0-3) per hpf Ur Squamous Epith Cells (None-Few) per lpf Urine Bacteria (None-Few) per hpf Hyaline Casts (None-Few) per lpf Ur Culture Indicated? (NO) 03/29/17 Range/Units 11:33 WBC (4.3-11.1) K/mcL RBC (4.19-5.50) M/mcL Hgb (12.9-16.9) g/dL Hct (37.5-50.1) % MCV (83.0-100.0) fL MCH (28.0-33.3) pg MCHC (31.6-35.5) g/dL RDW (11.5-14.5) % Plt Count (140-400) K/mcL MPV (9.4-12.4) fL Immature Gran % (0-4) % Seg Neutrophils % % Lymphocytes % % Monocytes % % Eosinophils % % Basophils % % Neutrophils # (1.6-8.9) K/mcL Lymphocytes # (0.6-4.6) K/mcL Monocytes # (0.0-1.3) K/mcL Eosinophils # (0.0-0.6) K/mcL Basophils # (0.0-0.2) K/mcL Platelet Estimate (Normal) PT (9.4-12.1) Seconds INR APTT (26.0-36.0) Seconds ABG pH (7.32-7.45) pH Units ABG pCO2 (35-45) mmHg ABG pO2 (85-104) mmHg ABG HCO3 (21-27) mEQ/L ABG Total CO2 (20-26) mEq/L ABG O2 Saturation (95-98) % ABG Base Excess (-2.0 to 3.0) mEq/L Blood Gas Modality Inspired O2 % Sodium (136-145) mEq/L Potassium (3.5-4.5) mEq/L Chloride (98-109) mEq/L Carbon Dioxide (19-29) mEq/L BUN (8-26) mg/dL Creatinine (0.72-1.25) mg/dL Est GFR ( Amer) (> 60) Est GFR (Non-Af Amer) (> 60) BUN/Creatinine Ratio (6-26) Glucose (70-99) mg/dL Calculated Osmolality (280-300) Lactic Acid (0.5-2.2) mmol/L Calcium (8.6-10.8) mg/dL Phosphorus (2.3-4.7) mg/dL Magnesium (1.6-2.6) mg/dL Total Bilirubin (0.2-1.2) mg/dL Direct Bilirubin (0.0-0.5) mg/dL Indirect Bilirubin (0.0-1.2) mg/dL AST (5-34) Units/L ALT (0-55) Units/L Alkaline Phosphatase (38-126) Units/L Troponin I 0.05 H* (0-0.03) ng/mL Serum Total Protein (6.0-8.3) g/dL Albumin (3.5-5.0) g/dL Globulin (2.4-3.5) g/dL Albumin/Globulin Ratio (1.1-2.2) Urine Color (Yellow) Urine Clarity (Clear) Urine pH (5.0-8.0) pH Units Ur Specific [place] (1.010-1.025) Urine Protein (Neg-Trace) mg/dL Urine Glucose (UA) (Normal) mg/dL Urine Ketones (Negative) mg/dL Urine Blood (Negative) Urine Nitrite (Negative) Urine Bilirubin (Negative) Urine Urobilinogen (Normal) mg/dL Ur Leukocyte Esterase (Negative) Urine Microscopic RBC (0-3) per hpf Urine Microscopic WBC (0-3) per hpf Ur Squamous Epith Cells (None-Few) per lpf Urine Bacteria (None-Few) per hpf Hyaline Casts (None-Few) per lpf Ur Culture Indicated? (NO) - Radiology Data Radiology results reviewed: Yes I reviewed the patient's radiology results. Chest X-Ray 03/29/17 11:02 IMPRESSION: 1. Endotracheal tube is positioned 5.9 cm above the penny. NG tube extends below the diaphragm beyond the field of view 2. Extensive right-sided airspace disease has developed, compared to 03/17/2017, consistent with pneumonia. D/ / 03/29/2017 11:55:41 Clark Chen MD / mildred Interpreting Provider: Clark Chen MD - EKG Data EKG attestation: Yes I reviewed and interpreted this EKG. EKG results narrative: EKG performed 1102 sinus tachycardia 1 21 bpm there is some baseline artifact no ST elevations, there is some ST depressions likely secondary to rate. This is a abnormal EKG. No old EKG for comparison. No STEMI pattern. Critical Care Time Critical Care Time: Yes Total Critical Care Time: 35 Attestation: CC time spent in medical resuscitation as well as respiratory failure Attestation Statement - Attestation Attestation: I examined this patient and my medical decision-making was reviewed with the CLOTH BALE HEADER/PA/Advanced Practice Nurse/Resident Physician. I agree with the documented findings, disposition and treatment plan as described except to the extent set forth below. ARF, pneumonia. intubated under my supervision by dr juan Rader. pt will be admitted to ICU.
--- NOTE | 2017-03-29 11:10 | Emergency Department Note ---
Disposition Clinical Impression: Respiratory abnormality Disposition: Still a Patient Condition: Fair Referrals: Madelaine Russell CNP [Primary Care Provider] - Forms: ED Satisfaction Letter General Adult HPI - General Chief complaint: ED Shortness of Breath/Dyspnea Stated complaint: Difficulty Breathing Time Seen by Provider: 03/29/17 10:59 Source: patient, EMS Limitations: no limitations - History of Present Illness HPI Narrative: Intubation of the patient was performed. Pain Scale: 0 Past Medical History - Past Medical History Medical history: Reports: COPD - Social History Smoking Status: Unknown if ever smoked Smokeless Tobacco Status: No Alcohol use: Reports: none Drug use: Reports: none Physical Exam - General Limitations: no limitations General appearance: obtunded Course Vital Signs Temperature 0 F L 03/29/17 10:49 Pulse Rate 122 03/29/17 10:49 Respiratory Rate 38 03/29/17 10:49 Blood Pressure 171/91 03/29/17 10:49 O2 Sat by Pulse Oximetry 94 03/29/17 10:49 Temperature 102.9 F H 03/29/17 11:01 Pulse Rate 121 03/29/17 11:01 Respiratory Rate 14 03/29/17 11:01 Blood Pressure 122/74 03/29/17 11:01 O2 Sat by Pulse Oximetry 100 03/29/17 11:01 Oxygen Delivery Oxygen Delivery Venti Mask Procedures - Intubation sedative: Etomidate Mg Given: 20 paralytic: Succinylcholine Mg Given: 120 Laryngoscope: Nancy ET Tube Size: 7.5 ET Tube Uncuffed: No Tube Secured Depth (cm): 22 Tube Secured Location: lips Tube Placement Confirmation: visualized tube passing through cords, equal breath sounds bilaterally, no breath sounds over epigastrium, confirmation by capnometry Patient Tolerated Procedure: well Intubation Complications: none
[2017-03-29 11:27] LABS: ABG Base Excess 6.8 mEq/L (-2.0 to 3.0); ABG HCO3 37.3 mEQ/L (21-27); ABG Oxygen Saturation 100 % (95-98); ABG PH 7.25 pH Units (7.32-7.45); ABG PO2 243 mmHg (85-104); ABG TCO2 39.9 mEq/L (20-26)
[2017-03-29 11:28] LABS: Bilirubin,Urine Negative (Negative); Blood Gas FiO2 100 %; Blood,Urine Negative (Negative); Clarity,Urine Clear (Clear); Color,Urine Yellow (Yellow); Glucose,Urine (UA) Normal (Normal); Ketones,Urine Negative (Negative); Leukocyte Esterase,Urine Negative (Negative); Nitrite,Urine Negative (Negative); PH,Urine 6.5 pH Units (5.0-8.0); Protein,Urine 30 mg/dL (Neg-Trace); Specific Gravity,Urine 1.015 (1.010-1.025); Urobilinogen,Urine Normal (Normal)
[2017-03-29 11:30] LABS: ABG PCO2 85 mmHg (35-45); Bacteria,Urine None Seen per hpf (None-Few); Hyaline Casts,Urine None Seen per lpf (None-Few); Squamous Epithelial Cell,Urine Many per lpf (None-Few); WBC,Urine 0-3 per hpf (0-3)
[2017-03-29] MEDS: 0.9 % Sodium Chloride 1,000 ML IVC SCH ×3 (11:30→19:24)
[2017-03-29] MEDS ORDERED: Vancomycin 1,500 MG in D5% in Water 250 ML IVPB ONE ×2 (11:31→11:36)
[2017-03-29] MEDS: Acetaminophen 650 MG RECTAL SUPP RC ONE ×2 (11:32→19:24)
[2017-03-29] MEDS ORDERED: Cefepime HCl 2,000 MG in D5% in Water (Mini-Bag+) 100 ML IVPB ONE (11:33)
[2017-03-29 11:37] LABS: Basophils # 0.1 K/mcL (0.0-0.2); Basophils % 0.2 %; Eosinophils # 0.1 K/mcL (0.0-0.6); Eosinophils % 0.2 %; Hematocrit 46.3 % (37.5-50.1); Hemoglobin 13.6 g/dL (12.9-16.9); Immature Granulocytes % 0.7 % (0-4); Lymphocytes # 1.3 K/mcL (0.6-4.6); Lymphocytes % 5.1 %; Mean Corpuscular HGB Conc 29.4 g/dL (31.6-35.5); Mean Corpuscular Hemoglobin 26.7 pg (28.0-33.3); Mean Platelet Volume 10.2 fL (9.4-12.4); Monocytes # 1.9 K/mcL (0.0-1.3); Monocytes % 7.2 %; Neutrophils # 22.3 K/mcL (1.6-8.9); Platelet Count 339 K/mcL (140-400); Red Blood Count 5.09 M/mcL (4.19-5.50); Red Cell Distribution Width 15.1 % (11.5-14.5); Segmented Neutrophils % 86.6 %
[2017-03-29 11:47] LABS: Activated Partial Thrombo Time 25.4 Seconds (26.0-36.0); Albumin 3.5 g/dL (3.5-5.0); Albumin/Globulin Ratio 0.9 (1.1-2.2); Bilirubin,Direct 0.2 mg/dL (0.0-0.5); Bilirubin,Indirect 0.2 mg/dL (0.0-1.2); Bilirubin,Total 0.4 mg/dL (0.2-1.2); Calcium 9.1 mg/dL (8.6-10.8); Globulin 3.8 g/dL (2.4-3.5); Magnesium 1.9 mg/dL (1.6-2.6); Phosphorous 4.4 mg/dL (2.3-4.7); Potassium 5.1 mEq/L (3.5-4.5); Total Protein 7.3 g/dL (6.0-8.3)
[2017-03-29] MEDS ORDERED: Levofloxacin 750 MG/150 ML 750 MG/150 ML BAG IVPB ONE (11:50)
[2017-03-29 12:05] LABS: Platelet Estimate Normal (Normal)
[2017-03-29] MEDS ORDERED: Aztreonam 2,000 MG in D5% in Water (Mini-Bag+) 100 ML IVPB ONE (12:27)
[2017-03-29] MEDS ORDERED: *HR* Vecuronium 10 MG VIAL ONE (12:54)
[2017-03-29] MEDS: *HR* Vecuronium 10 MG VIAL IVP ONE ×2 (12:58→19:25)
[2017-03-29] MEDS: Propofol 500 MG/50 ML INFUS..BTL ONE ×2 (13:07→19:25)
--- NOTE | 2017-03-29 13:36 | Emergency Department Note ---
Disposition Clinical Impression: HCAP (healthcare-associated pneumonia), Severe sepsis, Acute kidney injury Respiratory failure Qualifiers: Chronicity: acute on chronic Respiratory failure complication: unspecified whether with hypoxia or hypercapnia Qualified Code(s): J96.20 - Acute and chronic respiratory failure, unspecified whether with hypoxia or hypercapnia Disposition: Admitted As Inpatient Condition: Critical General Adult HPI - General Chief complaint: ED Shortness of Breath/Dyspnea Stated complaint: Difficulty Breathing Time Seen by Provider: 03/29/17 10:59 Source: patient, EMS Limitations: no limitations - History of Present Illness HPI Narrative: An internal jugular central line was placed on the patient's right side. Pain Scale: 0 - Related Data Home Medications Medication Instructions Recorded Confirmed Albuterol Sulfate [Ventolin Hfa] 2 puff IH Q4H PRN 03/29/17 03/29/17 Aspirin [Lo-Dose Aspirin EC] 81 mg PO DAILY 03/29/17 03/29/17 Carvedilol 12.5 mg PO BID 03/29/17 03/29/17 Clobetasol Propionate [Temovate] 1 appl TP BID 03/29/17 03/29/17 Clopidogrel [Plavix] 75 mg PO DAILY 03/29/17 03/29/17 Fluticasone/Salmeterol [Advair Hfa 2 puff IH BID 03/29/17 03/29/17 230-21 Mcg Inhaler] Furosemide [Lasix] 40 mg PO BID 03/29/17 03/29/17 Gabapentin [Neurontin] 600 mg PO TID 03/29/17 03/29/17 LORazepam [Ativan] 0.5 - 1 mg PO HS 03/29/17 03/29/17 Lisinopril [Zestril] 10 mg PO DAILY 03/29/17 03/29/17 Metformin HCl [Metformin HCl ER] 500 mg PO BID 03/29/17 03/29/17 Oxygen 2 l NS AD 03/29/17 03/29/17 Tiotropium Br/Olodaterol HCl 2 puff IH DAILY 03/29/17 03/29/17 [Stiolto Respimat Inhal [place]] Tramadol HCl [Ultram] 50 mg PO TID PRN 03/29/17 03/29/17 Allergies Allergy/AdvReac Type Severity Reaction Status Date / Time Penicillins AdvReac Anaphylaxis Verified 03/29/17 11:11 Sulfa (Sulfonamide AdvReac Anaphylaxis Verified 03/29/17 11:11 Antibiotics) Past Medical History - Past Medical History Medical history: Reports: COPD - Social History Smoking Status: Unknown if ever smoked Smokeless Tobacco Status: No Alcohol use: Reports: none Drug use: Reports: none Physical Exam - General Limitations: no limitations General appearance: obtunded Course Vital Signs Temperature 0 F L 03/29/17 10:49 Pulse Rate 122 03/29/17 10:49 Respiratory Rate 38 03/29/17 10:49 Blood Pressure 171/91 03/29/17 10:49 O2 Sat by Pulse Oximetry 94 03/29/17 10:49 Temperature 102.9 F H 03/29/17 11:01 Pulse Rate 97 03/29/17 13:01 Respiratory Rate 14 03/29/17 13:01 Blood Pressure 95/56 03/29/17 13:01 O2 Sat by Pulse Oximetry 97 03/29/17 13:01 Oxygen Delivery Oxygen Delivery Ventilator Procedures - Central Line Placement Right IJ Central Line Catheter Replacement*: No Central Line Insertion: emergent Consent Obtained: verbal consent Procedural Pause: verify patient name and date of , timeout performed per policy, sanjeev and assess the site, assemble equipment and verify supplies, perform hand hygiene Patient Placed on Monitor/Pulse Ox: Yes During the Procedure: clinician is wearing sterile gloves, cap, mask,& gown during insertion, sterile field and sterile technique are maintained, patient's face is covered with drape or mask and wearing a cap, everyone in room is wearing a mask Prep the Procedure Site: apply chloraprep to the skin using a back and forth scrubbing motion, apply chloraprep for 30 seconds (upper body), 1-2 min ( femoral sites), allow prep to dry, drape the patient with a full body drape Ultrasound Used for Placement: Yes Central Line Lumen Inserted: triple Post Procedure: sutured in place, good blood return, all ports aspirated, flushed, capped, sterile dressing applied, guide wire removed and visualized Post Procedure X-Ray: tip of catheter in good position, no pneumothorax seen Patient Tolerated Procedure: well Complications: none Name of Clinician Inserting Central Line: Meagan Peñaloza Medical Decision Making - Lab Data Result diagrams: 03/29/17 11:33 03/29/17 11:33 Lab Results 03/29/17 03/29/17 03/29/17 Range/Units 11:12 11:12 11:33 WBC 25.7 H (4.3-11.1) K/mcL RBC 5.09 (4.19-5.50) M/mcL Hgb 13.6 (12.9-16.9) g/dL Hct 46.3 (37.5-50.1) % MCV 91.0 (83.0-100.0) fL MCH 26.7 L (28.0-33.3) pg MCHC 29.4 L (31.6-35.5) g/dL RDW 15.1 H (11.5-14.5) % Plt Count 339 (140-400) K/mcL MPV 10.2 (9.4-12.4) fL Immature Gran % 0.7 (0-4) % Seg Neutrophils % 86.6 % Lymphocytes % 5.1 % Monocytes % 7.2 % Eosinophils % 0.2 % Basophils % 0.2 % Neutrophils # 22.3 H (1.6-8.9) K/mcL Lymphocytes # 1.3 (0.6-4.6) K/mcL Monocytes # 1.9 H (0.0-1.3) K/mcL Eosinophils # 0.1 (0.0-0.6) K/mcL Basophils # 0.1 (0.0-0.2) K/mcL Platelet Estimate Normal (Normal) PT (9.4-12.1) Seconds INR APTT (26.0-36.0) Seconds ABG pH 7.25 L (7.32-7.45) pH Units ABG pCO2 85 H* (35-45) mmHg ABG pO2 243 H (85-104) mmHg ABG HCO3 37.3 H (21-27) mEQ/L ABG Total CO2 39.9 H (20-26) mEq/L ABG O2 Saturation 100 H (95-98) % ABG Base Excess 6.8 H (-2.0 to 3.0) mEq/L Blood Gas Modality ASSIST CONTROL Inspired O2 100 % Sodium (136-145) mEq/L Potassium (3.5-4.5) mEq/L Chloride (98-109) mEq/L Carbon Dioxide (19-29) mEq/L BUN (8-26) mg/dL Creatinine (0.72-1.25) mg/dL Est GFR ( Amer) (> 60) Est GFR (Non-Af Amer) (> 60) BUN/Creatinine Ratio (6-26) Glucose (70-99) mg/dL Calculated Osmolality (280-300) Lactic Acid (0.5-2.2) mmol/L Calcium (8.6-10.8) mg/dL Phosphorus (2.3-4.7) mg/dL Magnesium (1.6-2.6) mg/dL Total Bilirubin (0.2-1.2) mg/dL Direct Bilirubin (0.0-0.5) mg/dL Indirect Bilirubin (0.0-1.2) mg/dL AST (5-34) Units/L ALT (0-55) Units/L Alkaline Phosphatase (38-126) Units/L Troponin I (0-0.03) ng/mL Serum Total Protein (6.0-8.3) g/dL Albumin (3.5-5.0) g/dL Globulin (2.4-3.5) g/dL Albumin/Globulin Ratio (1.1-2.2) Urine Color Yellow (Yellow) Urine Clarity Clear (Clear) Urine pH 6.5 (5.0-8.0) pH Units Ur Specific [place] 1.015 (1.010-1.025) Urine Protein 30 H (Neg-Trace) mg/dL Urine Glucose (UA) Normal (Normal) mg/dL Urine Ketones Negative (Negative) mg/dL Urine Blood Negative (Negative) Urine Nitrite Negative (Negative) Urine Bilirubin Negative (Negative) Urine Urobilinogen Normal (Normal) mg/dL Ur Leukocyte Esterase Negative (Negative) Urine Microscopic RBC 3-5 H (0-3) per hpf Urine Microscopic WBC 0-3 (0-3) per hpf Ur Squamous Epith Cells Many H (None-Few) per lpf Urine Bacteria None Seen (None-Few) per hpf Hyaline Casts None Seen (None-Few) per lpf Ur Culture Indicated? NO (NO) 03/29/17 03/29/17 03/29/17 Range/Units 11:33 11:33 11:33 WBC (4.3-11.1) K/mcL RBC (4.19-5.50) M/mcL Hgb (12.9-16.9) g/dL Hct (37.5-50.1) % MCV (83.0-100.0) fL MCH (28.0-33.3) pg MCHC (31.6-35.5) g/dL RDW (11.5-14.5) % Plt Count (140-400) K/mcL MPV (9.4-12.4) fL Immature Gran % (0-4) % Seg Neutrophils % % Lymphocytes % % Monocytes % % Eosinophils % % Basophils % % Neutrophils # (1.6-8.9) K/mcL Lymphocytes # (0.6-4.6) K/mcL Monocytes # (0.0-1.3) K/mcL Eosinophils # (0.0-0.6) K/mcL Basophils # (0.0-0.2) K/mcL Platelet Estimate (Normal) PT 11.0 (9.4-12.1) Seconds INR 1.0 APTT 25.4 L (26.0-36.0) Seconds ABG pH (7.32-7.45) pH Units ABG pCO2 (35-45) mmHg ABG pO2 (85-104) mmHg ABG HCO3 (21-27) mEQ/L ABG Total CO2 (20-26) mEq/L ABG O2 Saturation (95-98) % ABG Base Excess (-2.0 to 3.0) mEq/L Blood Gas Modality Inspired O2 % Sodium 138 (136-145) mEq/L Potassium 5.1 H (3.5-4.5) mEq/L Chloride 96 L (98-109) mEq/L Carbon Dioxide 35 H (19-29) mEq/L BUN 24 (8-26) mg/dL Creatinine 2.04 H (0.72-1.25) mg/dL Est GFR ( Amer) 40 L (> 60) Est GFR (Non-Af Amer) 33 L (> 60) BUN/Creatinine Ratio 12 (6-26) Glucose 215 H (70-99) mg/dL Calculated Osmolality 297 (280-300) Lactic Acid 2.6 H (0.5-2.2) mmol/L Calcium 9.1 (8.6-10.8) mg/dL Phosphorus 4.4 (2.3-4.7) mg/dL Magnesium 1.9 (1.6-2.6) mg/dL Total Bilirubin 0.4 (0.2-1.2) mg/dL Direct Bilirubin 0.2 (0.0-0.5) mg/dL Indirect Bilirubin 0.2 (0.0-1.2) mg/dL AST 11 (5-34) Units/L ALT 7 (0-55) Units/L Alkaline Phosphatase 104 (38-126) Units/L Troponin I (0-0.03) ng/mL Serum Total Protein 7.3 (6.0-8.3) g/dL Albumin 3.5 (3.5-5.0) g/dL Globulin 3.8 H (2.4-3.5) g/dL Albumin/Globulin Ratio 0.9 L (1.1-2.2) Urine Color (Yellow) Urine Clarity (Clear) Urine pH (5.0-8.0) pH Units Ur Specific [place] (1.010-1.025) Urine Protein (Neg-Trace) mg/dL Urine Glucose (UA) (Normal) mg/dL Urine Ketones (Negative) mg/dL Urine Blood (Negative) Urine Nitrite (Negative) Urine Bilirubin (Negative) Urine Urobilinogen (Normal) mg/dL Ur Leukocyte Esterase (Negative) Urine Microscopic RBC (0-3) per hpf Urine Microscopic WBC (0-3) per hpf Ur Squamous Epith Cells (None-Few) per lpf Urine Bacteria (None-Few) per hpf Hyaline Casts (None-Few) per lpf Ur Culture Indicated? (NO) 03/29/17 Range/Units 11:33 WBC (4.3-11.1) K/mcL RBC (4.19-5.50) M/mcL Hgb (12.9-16.9) g/dL Hct (37.5-50.1) % MCV (83.0-100.0) fL MCH (28.0-33.3) pg MCHC (31.6-35.5) g/dL RDW (11.5-14.5) % Plt Count (140-400) K/mcL MPV (9.4-12.4) fL Immature Gran % (0-4) % Seg Neutrophils % % Lymphocytes % % Monocytes % % Eosinophils % % Basophils % % Neutrophils # (1.6-8.9) K/mcL Lymphocytes # (0.6-4.6) K/mcL Monocytes # (0.0-1.3) K/mcL Eosinophils # (0.0-0.6) K/mcL Basophils # (0.0-0.2) K/mcL Platelet Estimate (Normal) PT (9.4-12.1) Seconds INR APTT (26.0-36.0) Seconds ABG pH (7.32-7.45) pH Units ABG pCO2 (35-45) mmHg ABG pO2 (85-104) mmHg ABG HCO3 (21-27) mEQ/L ABG Total CO2 (20-26) mEq/L ABG O2 Saturation (95-98) % ABG Base Excess (-2.0 to 3.0) mEq/L Blood Gas Modality Inspired O2 % Sodium (136-145) mEq/L Potassium (3.5-4.5) mEq/L Chloride (98-109) mEq/L Carbon Dioxide (19-29) mEq/L BUN (8-26) mg/dL Creatinine (0.72-1.25) mg/dL Est GFR ( Amer) (> 60) Est GFR (Non-Af Amer) (> 60) BUN/Creatinine Ratio (6-26) Glucose (70-99) mg/dL Calculated Osmolality (280-300) Lactic Acid (0.5-2.2) mmol/L Calcium (8.6-10.8) mg/dL Phosphorus (2.3-4.7) mg/dL Magnesium (1.6-2.6) mg/dL Total Bilirubin (0.2-1.2) mg/dL Direct Bilirubin (0.0-0.5) mg/dL Indirect Bilirubin (0.0-1.2) mg/dL AST (5-34) Units/L ALT (0-55) Units/L Alkaline Phosphatase (38-126) Units/L Troponin I 0.05 H* (0-0.03) ng/mL Serum Total Protein (6.0-8.3) g/dL Albumin (3.5-5.0) g/dL Globulin (2.4-3.5) g/dL Albumin/Globulin Ratio (1.1-2.2) Urine Color (Yellow) Urine Clarity (Clear) Urine pH (5.0-8.0) pH Units Ur Specific [place] (1.010-1.025) Urine Protein (Neg-Trace) mg/dL Urine Glucose (UA) (Normal) mg/dL Urine Ketones (Negative) mg/dL Urine Blood (Negative) Urine Nitrite (Negative) Urine Bilirubin (Negative) Urine Urobilinogen (Normal) mg/dL Ur Leukocyte Esterase (Negative) Urine Microscopic RBC (0-3) per hpf Urine Microscopic WBC (0-3) per hpf Ur Squamous Epith Cells (None-Few) per lpf Urine Bacteria (None-Few) per hpf Hyaline Casts (None-Few) per lpf Ur Culture Indicated? (NO)
[2017-03-29 13:52] LABS: ABG Base Excess 3.8 mEq/L (-2.0 to 3.0); ABG HCO3 33.6 mEQ/L (21-27); ABG Oxygen Saturation 92 % (95-98); ABG PH 7.22 pH Units (7.32-7.45); ABG PO2 77 mmHg (85-104); ABG TCO2 36.1 mEq/L (20-26)
[2017-03-29 13:53] LABS: Blood Gas FiO2 50 %
[2017-03-29 13:54] LABS: ABG PCO2 82 mmHg (35-45)
--- NOTE | 2017-03-29 14:19 | Electrocardiograph Report ---
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
[2017-03-29] MEDS ORDERED: 0.9 % Sodium Chloride 1,000 ML ONE (14:26)
[2017-03-29] MEDS ORDERED: 0.9 % Sodium Chloride 1,000 ML IVC ONE (14:31)
[2017-03-29] MEDS: Norepinephrine 4 MG in D5% in Water 250 ML IVC SCH (14:56)
[2017-03-29] MEDS ORDERED: Lacri-Lube 3.5 GM TUBE BOTH EYES PRN (14:57)
[2017-03-29] MEDS ORDERED: Levofloxacin 750 MG/150 ML 750 MG/150 ML BAG IVPB SCH (15:00)
[2017-03-29] MEDS: FentaNYL (PF) 1,000 MCG in 0.9 % Sodium Chloride 80 ML IVC SCH (15:00)
[2017-03-29] MEDS ORDERED: Calcium Gluconate 1,000 MG in D5% in Water 100 ML IVPB PRN (15:08)
[2017-03-29] MEDS ORDERED: Potassium Chloride 40 MEQ/200 ML BAG IVPB PRN (15:08)
[2017-03-29] MEDS ORDERED: Sodium Phosphate 30 MMOL in D5% in Water 100 ML IVPB PRN (15:08)
[2017-03-29] MEDS: *HR* Heparin 5,000 UNIT/ML VIAL SQ SCH ×2 (15:29→21:07)
[2017-03-29] MEDS: Pantoprazole 40 MG VIAL IVP SCH (15:30)
[2017-03-29 15:40] LABS: ABG Base Excess 5.3 mEq/L (-2.0 to 3.0); ABG HCO3 34.3 mEQ/L (21-27); ABG Oxygen Saturation 90 % (95-98); ABG PH 7.28 pH Units (7.32-7.45); ABG PO2 66 mmHg (85-104); ABG TCO2 36.5 mEq/L (20-26)
[2017-03-29 15:42] LABS: ABG PCO2 73 mmHg (35-45); Blood Gas FiO2 50 %
[2017-03-29] MEDS ORDERED: Aztreonam 2,000 MG in D5% in Water (Mini-Bag+) 100 ML IVPB SCH (16:00)
[2017-03-29] MEDS ORDERED: Thiamine (B-1) 200 MG in D5% in Water 50 ML IVPB SCH (16:45)
[2017-03-29] MEDS ORDERED: D5% in Water 1,000 ML IVC PRN (16:58)
[2017-03-29] MEDS ORDERED: Dextrose Gel 15 GM PO PRN ×2 (16:58)
[2017-03-29] MEDS ORDERED: *HR* Dextrose 50 % in Water (Syg) 50 ML SYRINGE IVP PRN (16:58)
--- NOTE | 2017-03-29 17:09 | Pulmonology History & Physical ---
<MargretradhaRadha rivas M - Last Filed: 03/29/17 17:12> Date of Encounter: 03/29/17 History of Present Illness HPI: Mr. Joseph is a 61 year old male Medications and Allergies Albuterol Sulfate [Ventolin Hfa] 2 puff IH Q4H PRN 03/29/17 [History] Aspirin [Lo-Dose Aspirin EC] 81 mg PO DAILY 03/29/17 [History] Carvedilol 12.5 mg PO BID 03/29/17 [History] Clobetasol Propionate [Temovate] 1 appl TP BID 03/29/17 [History] Clopidogrel [Plavix] 75 mg PO DAILY 03/29/17 [History] Fluticasone/Salmeterol [Advair Hfa 230-21 Mcg Inhaler] 2 puff IH BID 03/29/17 [ History] Furosemide [Lasix] 40 mg PO BID 03/29/17 [History] Gabapentin [Neurontin] 600 mg PO TID 03/29/17 [History] LORazepam [Ativan] 0.5 - 1 mg PO HS 03/29/17 [History] Lisinopril [Zestril] 10 mg PO DAILY 03/29/17 [History] Metformin HCl [Metformin HCl ER] 500 mg PO BID 03/29/17 [History] Oxygen 2 l NS AD 03/29/17 [History] Tiotropium Br/Olodaterol HCl [Stiolto Respimat Inhal [place]] 2 puff IH DAILY [History] Tramadol HCl [Ultram] 50 mg PO TID PRN 03/29/17 [History] Allergies Penicillins Adverse Reaction (Verified 03/29/17 11:11) Anaphylaxis Sulfa (Sulfonamide Antibiotics) Adverse Reaction (Verified 03/29/17 11:11) Anaphylaxis All Systems: A 10-system review of systems was performed and is negative for pertinent findings except as documented above in the HPI. Physical Examination Vital Signs: Vital Signs, Last 4 Hours Pulse Resp BP Pulse Ox 03/29/17 16:37 87 12 103/60 97 03/29/17 15:58 12 102/62 97 03/29/17 15:44 88 14 104/60 96 03/29/17 14:45 95 16 89/53 96 03/29/17 14:12 16 104/59 100 03/29/17 13:59 95 16 113/83 95 Results - Laboratory Findings CBC and BMP: 03/29/17 11:33 03/29/17 11:33 ABG ABG pH 7.28 pH Units (7.32-7.45) L 03/29/17 15:30 ABG pCO2 73 mmHg (35-45) H* 03/29/17 15:30 ABG pO2 66 mmHg (85-104) L 03/29/17 15:30 ABG O2 Saturation 90 % (95-98) L 03/29/17 15:30 PT/INR, D-dimer PT 11.0 Seconds (9.4-12.1) 03/29/17 11:33 Abnormal lab findings: Abnormal lab results WBC 25.7 K/mcL (4.3-11.1) H 03/29/17 11:33 MCH 26.7 pg (28.0-33.3) L 03/29/17 11:33 MCHC 29.4 g/dL (31.6-35.5) L 03/29/17 11:33 RDW 15.1 % (11.5-14.5) H 03/29/17 11:33 Neutrophils # 22.3 K/mcL (1.6-8.9) H 03/29/17 11:33 Monocytes # 1.9 K/mcL (0.0-1.3) H 03/29/17 11:33 APTT 25.4 Seconds (26.0-36.0) L 03/29/17 11:33 ABG pH 7.28 pH Units (7.32-7.45) L 03/29/17 15:30 ABG pCO2 73 mmHg (35-45) H* 03/29/17 15:30 ABG pO2 66 mmHg (85-104) L 03/29/17 15:30 ABG HCO3 34.3 mEQ/L (21-27) H 03/29/17 15:30 ABG Total CO2 36.5 mEq/L (20-26) H 03/29/17 15:30 ABG O2 Saturation 90 % (95-98) L 03/29/17 15:30 ABG Base Excess 5.3 mEq/L (-2.0 to 3.0) H 03/29/17 15:30 Potassium 5.1 mEq/L (3.5-4.5) H 03/29/17 11:33 Chloride 96 mEq/L (98-109) L 03/29/17 11:33 Carbon Dioxide 35 mEq/L (19-29) H 03/29/17 11:33 Creatinine 2.04 mg/dL (0.72-1.25) H 03/29/17 11:33 Est GFR ( Amer) 40 (> 60) L 03/29/17 11:33 Est GFR (Non-Af Amer) 33 (> 60) L 03/29/17 11:33 Glucose 215 mg/dL (70-99) H 03/29/17 11:33 Troponin I 0.05 ng/mL (0-0.03) H* 03/29/17 11:33 Globulin 3.8 g/dL (2.4-3.5) H 03/29/17 11:33 Albumin/Globulin Ratio 0.9 (1.1-2.2) L 03/29/17 11:33 Urine Protein 30 mg/dL (Neg-Trace) H 03/29/17 11:12 Urine Microscopic RBC 3-5 per hpf (0-3) H 03/29/17 11:12 Ur Squamous Epith Cells Many per lpf (None-Few) H 03/29/17 11:12 - Attending Attestation I examined this patient and my medical decision-making was reviewed with the GAMING SURVEILLANCE OBSERVER/PA/Advanced Practice Nurse/Resident Physician. I agree with the documented findings, disposition and treatment plan as described except to the extent set forth below. Patient seen and examined. Labs, radiology, chart personally reviewed. 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 Patient has evidence of intrinsic PEEP and for that reason increase tidal volume and lower respiratory rate with some improvement and will need to repeat ABG. Patient will be on bronchodilators as well as broad-spectrum antibiotics. I suspect he might have COPD exacerbation. Patient with acute on chronic respiratory failure. Cardiovascular: Patient with shock and he has history of coronary artery disease. GI: Nutrition per dietary and GI prophylaxis per routine Heme: DVT prophylaxis per routine ID: Continue antibiotics and plan to de-escalation. Patient with evidence of septic shock with acceptable capillary refills as indication of perfusion and skin warm to touch. Renal; urine out put and renal funtion reviewed. May need nephrology consultation Endorcine: blood glucose is monitored Lines: all lines checked and no evidence of infections Skin: skin care to prevent pressure ulcers per nursing routine care I spent 40 min of Critical Care time with this patient. It involved decision making of high complexity to assess, manipulate, and support vital organ system failure and/or to prevent further life threatening deterioration of the patient' s condition. The time involved in the performance of separately reportable procedures was not counted toward critical care time. <Hussein Hubbard - Last Filed: 03/29/17 19:45> Date of Encounter: 03/29/17 Time of Encounter: 17:47 Assessment and Plan (1) Septic shock Current visit: Yes Status: Acute Patient met 3 of the SIRS criteria: Temperature of 102.9F, tachycardic at 121 bpm, and WBCs count at 25.7. Chest x-ray indicates right lower lobe pneumonia. Thus, the patient has the presence of infection. The patient was hypotensive and received over 3 L of fluid and was placed on Levophed to maintain blood pressure. He also had acute respiratory failure and is currently intubated and sedated. Patient had creatinine level of 2.04 an initial lactate of 2.6. Patient is allergic to penicillin and sulfa. Continue the patient on the aztreonam, Levaquin, and vancomycin. Continue the patient on Levophed and monitor closely. Patient received vitamin C IV 1.5 g Q6H, hydrocortisone 50 mg Q6H, and 200 mg IV Thiamine Q12H. DVT and G.I. prophylaxis is initiated. Blood cultures and urine cultures were drawn. (2) HCAP (healthcare-associated pneumonia) Current visit: Yes Status: Acute Daughter states that the patient was admitted to the hospital about 2 weeks ago for difficulty in breathing and shortness of breath. Chest x-ray is consistent with right lower lobe pneumonia. White blood count is elevated. Continue patients on antibiotics. (3) Acute on chronic respiratory failure with hypercapnia Current visit: Yes Status: Acute Acute on chronic respiratory failure with hypercapnia possibly secondary to right lower lobe pneumonia. Initial ABG indicates respiratory acidosis with pH of 2.25, pCO2 of 85, and HCO3 of 37.3. Current ABG demonstrates improvement with pH of 7.31, PCO2 of 66, and HCO3 of 33.2. Patient is comfortable on the ventilation. Vent bundle was ordered. Continue to monitor closely. Repeat ABG accordingly. Patient is on Symbicort b.i.d. and Duoneb Q6H. (4) Acute kidney injury Current visit: Yes Status: Acute ANAHI most likely secondary to sepsis dehydration. Patient has minimal urine output. Patient's current BUN and is 24 and creatinine is 2.04. Patient's baseline kidney function unknown. Continue to monitor patient closely. (5) COPD exacerbation Current visit: Yes Status: Suspected If necessary, patient will be treated with bronchodilators, steroid, and antibiotics as noted above. Suspected COPD exacerbation possibly due to pneumonia. History of Present Illness Chief complaint: Difficulty breathing HPI: Mr. Joseph is a 61 year old male with a past medical history of COPD on 2L of oxygen at home, previous GA with stents, diabetes, and hypertension who is admitted from the ER to the ICU today. Patient arrived to the ICU intubated and sedated. Therefore, history was obtained from documentation and daughter. The patient is a current smoker. He presented to the ER with difficulty breathing. Per ER documentation, the patient came in via EMS and unresponsive. He was saturating between 60 to 70% but improved to 96% with bag valve mask and good ventilation. However, the patient was not answering questions. He was reported to have a temperature of 105.1F. The patient was intubated in the ER to protect his airway. Past Med Surg Social Fam HX - Past Medical History Source: other (Some history was obtained from his daughter. ) Medical history: COPD, coronary artery disease, diabetes, hypertension, myocardial infarction - Past Surgical History Surgical History: other (Cardiac stent) - Social History Smoking Status: Current every day smoker (Smokes 1.5 packs a day) Packs per day: 1.5 Smokeless Tobacco Status: No Alcohol use: none Drug use: none ROS unobtainable: due to endotracheal tube, other (Patient is intubated and sedated. ) All Systems: A 10-system review of systems was performed and is negative for pertinent findings except as documented above in the HPI. - Constitutional Constitutional: as per HPI - Cardiovascular Cardiovascular: other (Daughter at bedside stated that the patient did not complain of chest pain or palpitations prior to coming to the ED) - Respiratory Respiratory: as per HPI, other (Daughter is at bedside and states that the patient complained of shortness of breath and difficulty breathing prior to coming to the ED.) - Gastrointestinal Gastrointestinal: as per HPI Physical Examination Vital Signs: Vital Signs, Last 4 Hours Pulse Resp BP Pulse Ox 03/29/17 15:58 12 102/62 97 03/29/17 15:44 88 14 104/60 96 03/29/17 14:45 95 16 89/53 96 03/29/17 14:12 16 104/59 100 03/29/17 13:59 95 16 113/83 95 03/29/17 13:01 97 14 95/56 97 03/29/17 12:52 99 14 99/58 97 General appearance: alert, other (intubated and sedated) Eyes: nonicteric, other (Pupils equal and round and reactive to light. ) ENT: oropharynx moist Neck: supple, no lymphadenopathy, no JVD Effort: normal Inspection: normal Auscultation: bilateral: wheezes (Expiratory wheezes bilaterally), rhonchi Cardiovascular: regular rate and rhythm, other (no mumurs, gallops, or rubs. ) Gastrointestinal: normoactive bowel sounds, soft, non-tender, non-distended, other (a bruise is present on the left side of his umbilicus. ) Integumentary: other (Ecchymosis is present on both upper forearms. Skin is normal and warm. No jaundice is present. ) Extremities: no cyanosis, pulses normal (Radial and distal pulses +2/4. ), edema (Bilateral lower extremities edema. Trace pitting bilaterally. ), other ( Capillary refill <2 seconds) Musculoskeletal: no deformities other (Patient responds to pain to stimuli. ) Results - Laboratory Findings CBC and BMP: 03/29/17 11:33 03/29/17 11:33 ABG ABG pH 7.28 pH Units (7.32-7.45) L 03/29/17 15:30 ABG pCO2 73 mmHg (35-45) H* 03/29/17 15:30 ABG pO2 66 mmHg (85-104) L 03/29/17 15:30 ABG O2 Saturation 90 % (95-98) L 03/29/17 15:30 PT/INR, D-dimer PT 11.0 Seconds (9.4-12.1) 03/29/17 11:33 Abnormal lab findings: Abnormal lab results WBC 25.7 K/mcL (4.3-11.1) H 03/29/17 11:33 MCH 26.7 pg (28.0-33.3) L 03/29/17 11:33 MCHC 29.4 g/dL (31.6-35.5) L 03/29/17 11:33 RDW 15.1 % (11.5-14.5) H 03/29/17 11:33 Neutrophils # 22.3 K/mcL (1.6-8.9) H 03/29/17 11:33 Monocytes # 1.9 K/mcL (0.0-1.3) H 03/29/17 11:33 APTT 25.4 Seconds (26.0-36.0) L 03/29/17 11:33 ABG pH 7.28 pH Units (7.32-7.45) L 03/29/17 15:30 ABG pCO2 73 mmHg (35-45) H* 03/29/17 15:30 ABG pO2 66 mmHg (85-104) L 03/29/17 15:30 ABG HCO3 34.3 mEQ/L (21-27) H 03/29/17 15:30 ABG Total CO2 36.5 mEq/L (20-26) H 03/29/17 15:30 ABG O2 Saturation 90 % (95-98) L 03/29/17 15:30 ABG Base Excess 5.3 mEq/L (-2.0 to 3.0) H 03/29/17 15:30 Potassium 5.1 mEq/L (3.5-4.5) H 03/29/17 11:33 Chloride 96 mEq/L (98-109) L 03/29/17 11:33 Carbon Dioxide 35 mEq/L (19-29) H 03/29/17 11:33 Creatinine 2.04 mg/dL (0.72-1.25) H 03/29/17 11:33 Est GFR ( Amer) 40 (> 60) L 03/29/17 11:33 Est GFR (Non-Af Amer) 33 (> 60) L 03/29/17 11:33 Glucose 215 mg/dL (70-99) H 03/29/17 11:33 Troponin I 0.05 ng/mL (0-0.03) H* 03/29/17 11:33 Globulin 3.8 g/dL (2.4-3.5) H 03/29/17 11:33 Albumin/Globulin Ratio 0.9 (1.1-2.2) L 03/29/17 11:33 Urine Protein 30 mg/dL (Neg-Trace) H 03/29/17 11:12 Urine Microscopic RBC 3-5 per hpf (0-3) H 03/29/17 11:12 Ur Squamous Epith Cells Many per lpf (None-Few) H 03/29/17 11:12
[2017-03-29 17:53] LABS: ABG Base Excess 5.1 mEq/L (-2.0 to 3.0); ABG HCO3 33.2 mEQ/L (21-27); ABG Oxygen Saturation 93 % (95-98); ABG PCO2 66 mmHg (35-45); ABG PH 7.31 pH Units (7.32-7.45); ABG PO2 73 mmHg (85-104); ABG TCO2 35.2 mEq/L (20-26); Blood Gas FiO2 50 %
[2017-03-29 17:54] LABS: Blood Gas PEEP 5 cm H2O; Blood Gas Respiration Rate 12; Blood Gas VT 600 cc
[2017-03-29] MEDS: Thiamine (B-1) 200 MG in D5% in Water 50 ML IVPB SCH (18:32)
[2017-03-29] MEDS: Insulin LISPRO 300 UNITS/3 ML VIAL SQ SCH ×2 (19:15→23:19)
[2017-03-29] MEDS: Hydrocortisone Sodium Succ 100 MG/2 ML VIAL IVP SCH ×2 (19:15→23:16)
[2017-03-29] MEDS: Lacri-Lube 3.5 GM TUBE BOTH EYES SCH ×3 (19:15→23:17)
[2017-03-29] MEDS: Chlorhexidine Rinse 15 ML MOUTHWASH MM SCH (20:33)
[2017-03-29] MEDS: Ipratropium/Albuterol Neb 3 ML IH SCH (21:11)
[2017-03-29] MEDS: Budesonide/Formoterol 160/4.5 MDI IH SCH (21:12)
[2017-03-29] MEDS: Aztreonam 2,000 MG in D5% in Water (Mini-Bag+) 100 ML IVPB SCH (23:16)
[2017-03-30] MEDS: Ipratropium/Albuterol Neb 3 ML IH SCH ×4 (03:33→21:29)
[2017-03-30] MEDS: Lacri-Lube 3.5 GM TUBE BOTH EYES SCH ×4 (03:40→14:59)
[2017-03-30 03:42] LABS: Basophils % 0.1 %; Hematocrit 36.8 % (37.5-50.1); Immature Granulocytes % 0.5 % (0-4); Immature Platelets 3.3 % (1.1-6.1); Lymphocytes % 4.3 %; Mean Corpuscular HGB Conc 29.9 g/dL (31.6-35.5); Mean Corpuscular Volume 90.2 fL (83.0-100.0); Mean Platelet Volume 9.5 fL (9.4-12.4); Monocytes % 4.6 %; Platelet Count 255 K/mcL (140-400); Red Blood Count 4.08 M/mcL (4.19-5.50); Red Cell Distribution Width 15.5 % (11.5-14.5); Segmented Neutrophils % 90.5 %
[2017-03-30 03:53] LABS: Ionized Calcium 1.19 mmol/L (1.15-1.35)
[2017-03-30 04:00] LABS: ABG Base Excess 7.4 mEq/L (-2.0 to 3.0); ABG HCO3 35.1 mEQ/L (21-27); ABG Oxygen Saturation 88 % (95-98); ABG PCO2 65 mmHg (35-45); ABG PH 7.34 pH Units (7.32-7.45); ABG PO2 58 mmHg (85-104); ABG TCO2 37.1 mEq/L (20-26)
[2017-03-30 04:04] LABS: Blood Gas FiO2 40 %
[2017-03-30 04:15] LABS: Calcium 8.7 mg/dL (8.6-10.8); Magnesium 1.5 mg/dL (1.6-2.6); Phosphorous 3.6 mg/dL (2.3-4.7); Potassium 4.8 mEq/L (3.5-4.5)
[2017-03-30] MEDS: Hydrocortisone Sodium Succ 100 MG/2 ML VIAL IVP SCH (05:05)
[2017-03-30] MEDS: *HR* Heparin 5,000 UNIT/ML VIAL SQ SCH ×3 (05:06→21:20)
[2017-03-30] MEDS: Magnesium Sulfate 2 GM in D5% in Water 100 ML IVPB PRN ×2 (05:06→15:00)
[2017-03-30] MEDS: Insulin LISPRO 300 UNITS/3 ML VIAL SQ SCH ×4 (05:09→21:20)
[2017-03-30] MEDS: Thiamine (B-1) 200 MG in D5% in Water 50 ML IVPB SCH (05:21)
[2017-03-30] MEDS ORDERED: *HR* Etomidate 20 MG/10 ML AMPUL IVP ONE (07:31)
[2017-03-30] MEDS ORDERED: *HR* Succinylcholine 200 MG/10 ML VIAL IVP ONE (07:31)
[2017-03-30] MEDS: Chlorhexidine Rinse 15 ML MOUTHWASH MM SCH (08:06)
[2017-03-30] MEDS: Aztreonam 2,000 MG in D5% in Water (Mini-Bag+) 100 ML IVPB SCH ×3 (08:17→23:08)
[2017-03-30] MEDS: Pantoprazole 40 MG VIAL IVP SCH (08:19)
[2017-03-30] MEDS: Ipratropium/Albuterol Neb 3 ML IH PRN ×2 (08:50→23:32)
--- NOTE | 2017-03-30 09:25 | Pulmonology Progress Note ---
<Hussein Hubbard - Last Filed: 03/30/17 13:40> Date of Encounter: 03/30/17 Time of Encounter: 09:20 Assessment and Plan (1) Septic shock Current Visit: Yes Status: Acute The patient is currently stable. Last night around 11 PM, he was taken off of the Levophed. Patient tolerated CPAP very well this morning. He was extubated at 7:46 AM. Labs show white blood cell count trending down, lactate is 1.2, and creatinine at 1.92. Discontinue the hydrocortisone, vitamin C, and thiamine. Continue the patients on his current antibiotics: Azotrenam, Levaquin , and vancomycin. Continue DVT and G.I. prophylaxis. (2) HCAP (healthcare-associated pneumonia) Current Visit: Yes Status: Acute Chest x-ray is consistent with right lower lobe pneumonia. White blood count is trending down today. Continue patients on antibiotics. (3) Acute kidney injury Current Visit: Yes Status: Acute ANAHI most likely secondary to sepsis dehydration. Patient urine output is improving. Patient's current BUN and is 26 and creatinine is 1.92. These values are improving compared to yesterday labs. Patient's baseline kidney function unknown. Continue to monitor patient closely. (4) Acute on chronic respiratory failure with hypercapnia Current Visit: Yes Status: Acute Acute on chronic respiratory failure with hypercapnia possibly secondary to right lower lobe pneumonia. Initial ABG indicates respiratory acidosis with pH of 2.25, pCO2 of 85, and HCO3 of 37.3. Most recent ABG demonstrates improvement with pH of 7.34, PCO2 of 65, and HCO3 of 35.1. Patient tolerated CPAP this morning well and was extubated today at 7:46 AM.Patient is on Symbicort b.i.d. and Duoneb Q6H. As above, continue the patient on his antibiotics. Repeat ABG accordingly and continue to monitor the patient closely. (5) COPD exacerbation Current Visit: Yes Status: Suspected If necessary, patient will be treated with bronchodilators, steroid, and antibiotics as noted above. Suspected COPD exacerbation possibly due to pneumonia. Subjective Principal diagnosis: Septic Shock Objective PUL Vital signs: Last Vital Signs Temp 97.8 F 03/30/17 07:58 Pulse 99 03/30/17 09:00 Resp 24 03/30/17 09:00 BP 166/84 03/30/17 09:00 Pulse Ox 91 03/30/17 09:00 General appearance: no acute distress, alert, other (Patient was extubated at 7: 46 am. He is alert and orientedx3. ) Eyes: nonicteric, other (Pupils equal, round and reactive to light. He can track me with his eyes. ) ENT: oropharynx dry, other (No epistaxis present. ) Neck: supple, no lymphadenopathy, no JVD Effort: normal, other (Patient was extubated at 7:46 am. He continues to tripod to breathe. ) Auscultation: bilateral: wheezes (expiratory wheezes bilaterally), rhonchi Cardiovascular: regular rate and rhythm, other (No murmurs, gallops, or rubs present.) Gastrointestinal: normoactive bowel sounds, soft, non-tender, non-distended, other (A small bruise is present on the left side of his umbilicus. ) Integumentary: normal, other (Ecchymosis is present on both upper forearms. Skin is warm. No jaundice present.) Extremities: no cyanosis, no clubbing, pink and warm, pulses normal (radial and distal pulses are +2/4), edema (trace pitting edema in bilateral lower extremities. ) Musculoskeletal: no deformities, ROM normal, other (No joint tenderness or pain. ) mood appropriate, affect normal Ventilator Settings Ventilator Settings: Ventilator Settings, Last 8 Hours Ventilator Mode CPAP Ventilator Mode CPAP Ventilator Mode VC+ Ventilator Mode VC+ Ventilator Mode VC+ Ventilator Mode VC+ Ventilator Mode VC+ Ventilator Mode VC+ Ventilator Mode VC+ Ventilator Tidal Volume 600 Setting Ventilator Tidal Volume 600 Setting Ventilator Tidal Volume 600 Setting Ventilator Tidal Volume 12 Setting Ventilator Tidal Volume 600 Setting Ventilator Tidal Volume 600 Setting Ventilator Tidal Volume 600 Setting Ventilator Respiratory Rate 12 Setting Ventilator Respiratory Rate 12 Setting Ventilator Respiratory Rate 12 Setting Ventilator Respiratory Rate 600 Setting Ventilator Respiratory Rate 12 Setting Ventilator Respiratory Rate 12 Setting Ventilator Respiratory Rate 12 Setting Actual Respiratory Rate 23 Actual Respiratory Rate 21 Actual Respiratory Rate 12 Actual Respiratory Rate 12 Actual Respiratory Rate 12 Actual Respiratory Rate 12 Actual Respiratory Rate 12 Actual Respiratory Rate 12 Positive End Expiratory 5 Pressure Positive End Expiratory 5 Pressure Positive End Expiratory 5 Pressure Positive End Expiratory 5 Pressure Positive End Expiratory 5 Pressure Positive End Expiratory 5 Pressure Positive End Expiratory 5 Pressure Positive End Expiratory 5 Pressure Peak Inspiratory Airway 16 Pressure Peak Inspiratory Airway 34 Pressure Peak Inspiratory Airway 33 Pressure Peak Inspiratory Airway 34 Pressure Peak Inspiratory Airway 37 Pressure Peak Inspiratory Airway 33 Pressure Peak Inspiratory Airway 33 Pressure Results - Laboratory Findings CBC and BMP: 03/30/17 03:34 03/30/17 03:34 ABG ABG pH 7.34 pH Units (7.32-7.45) 03/30/17 03:52 ABG pCO2 65 mmHg (35-45) H 03/30/17 03:52 ABG pO2 58 mmHg (85-104) L 03/30/17 03:52 ABG O2 Saturation 88 % (95-98) L 03/30/17 03:52 PT/INR, D-dimer PT 11.0 Seconds (9.4-12.1) 03/29/17 11:33 Abnormal lab findings: Abnormal lab results WBC 22.1 K/mcL (4.3-11.1) H 03/30/17 03:34 RBC 4.08 M/mcL (4.19-5.50) L 03/30/17 03:34 Hgb 11.0 g/dL (12.9-16.9) L D 03/30/17 03:34 Hct 36.8 % (37.5-50.1) L 03/30/17 03:34 MCH 27.0 pg (28.0-33.3) L 03/30/17 03:34 MCHC 29.9 g/dL (31.6-35.5) L 03/30/17 03:34 RDW 15.5 % (11.5-14.5) H 03/30/17 03:34 Neutrophils # 20.0 K/mcL (1.6-8.9) H 03/30/17 03:34 APTT 25.4 Seconds (26.0-36.0) L 03/29/17 11:33 ABG pCO2 65 mmHg (35-45) H 03/30/17 03:52 ABG pO2 58 mmHg (85-104) L 03/30/17 03:52 ABG HCO3 35.1 mEQ/L (21-27) H 03/30/17 03:52 ABG Total CO2 37.1 mEq/L (20-26) H 03/30/17 03:52 ABG O2 Saturation 88 % (95-98) L 03/30/17 03:52 ABG Base Excess 7.4 mEq/L (-2.0 to 3.0) H 03/30/17 03:52 Potassium 4.8 mEq/L (3.5-4.5) H 03/30/17 03:34 Carbon Dioxide 33 mEq/L (19-29) H 03/30/17 03:34 Creatinine 1.92 mg/dL (0.72-1.25) H 03/30/17 03:34 Est GFR ( Amer) 43 (> 60) L 03/30/17 03:34 Est GFR (Non-Af Amer) 36 (> 60) L 03/30/17 03:34 Glucose 136 mg/dL (70-99) H 03/30/17 03:34 POC Glucose 118 (58-89) H 03/29/17 23:18 Magnesium 1.5 mg/dL (1.6-2.6) L 03/30/17 03:34 Troponin I 0.05 ng/mL (0-0.03) H* 03/29/17 11:33 Globulin 3.8 g/dL (2.4-3.5) H 03/29/17 11:33 Albumin/Globulin Ratio 0.9 (1.1-2.2) L 03/29/17 11:33 Urine Protein 30 mg/dL (Neg-Trace) H 03/29/17 11:12 Urine Microscopic RBC 3-5 per hpf (0-3) H 03/29/17 11:12 Ur Squamous Epith Cells Many per lpf (None-Few) H 03/29/17 11:12 - Clinical Findings Intake & Output: Intake & Output 03/29/17 03/30/17 03/30/17 23:59 07:59 15:59 Intake Total 1066 / 1066 1239 / 1239 Output Total 175 / 175 375 / 375 Balance 891 / 891 864 / 864 Weight 90.4 kg - VTE Documentation of Mechanical Device: Graduated compression elastic hosiery Consult Discharge Plan - Plan Referrals: Madelaine Russell, [employer] [Primary Care Provider] - <Radha Soliz - Last Filed: 03/30/17 16:25> Date of Encounter: 03/30/17 Objective PUL Vital signs: Last Vital Signs Temp 97.6 F 03/30/17 12:29 Pulse 92 03/30/17 15:21 Resp 20 03/30/17 16:19 BP 156/74 03/30/17 15:00 Pulse Ox 94 03/30/17 16:19 Results - Laboratory Findings CBC and BMP: 03/30/17 03:34 03/30/17 03:34 ABG ABG pH 7.34 pH Units (7.32-7.45) 03/30/17 03:52 ABG pCO2 65 mmHg (35-45) H 03/30/17 03:52 ABG pO2 58 mmHg (85-104) L 03/30/17 03:52 ABG O2 Saturation 88 % (95-98) L 03/30/17 03:52 PT/INR, D-dimer PT 11.0 Seconds (9.4-12.1) 03/29/17 11:33 Abnormal lab findings: Abnormal lab results WBC 22.1 K/mcL (4.3-11.1) H 03/30/17 03:34 RBC 4.08 M/mcL (4.19-5.50) L 03/30/17 03:34 Hgb 11.0 g/dL (12.9-16.9) L D 03/30/17 03:34 Hct 36.8 % (37.5-50.1) L 03/30/17 03:34 MCH 27.0 pg (28.0-33.3) L 03/30/17 03:34 MCHC 29.9 g/dL (31.6-35.5) L 03/30/17 03:34 RDW 15.5 % (11.5-14.5) H 03/30/17 03:34 Neutrophils # 20.0 K/mcL (1.6-8.9) H 03/30/17 03:34 APTT 25.4 Seconds (26.0-36.0) L 03/29/17 11:33 ABG pCO2 65 mmHg (35-45) H 03/30/17 03:52 ABG pO2 58 mmHg (85-104) L 03/30/17 03:52 ABG HCO3 35.1 mEQ/L (21-27) H 03/30/17 03:52 ABG Total CO2 37.1 mEq/L (20-26) H 03/30/17 03:52 ABG O2 Saturation 88 % (95-98) L 03/30/17 03:52 ABG Base Excess 7.4 mEq/L (-2.0 to 3.0) H 03/30/17 03:52 Potassium 4.8 mEq/L (3.5-4.5) H 03/30/17 03:34 Carbon Dioxide 33 mEq/L (19-29) H 03/30/17 03:34 Creatinine 1.92 mg/dL (0.72-1.25) H 03/30/17 03:34 Est GFR ( Amer) 43 (> 60) L 03/30/17 03:34 Est GFR (Non-Af Amer) 36 (> 60) L 03/30/17 03:34 Glucose 136 mg/dL (70-99) H 03/30/17 03:34 POC Glucose 118 (58-89) H 03/29/17 23:18 Troponin I 0.05 ng/mL (0-0.03) H* 03/29/17 11:33 Globulin 3.8 g/dL (2.4-3.5) H 03/29/17 11:33 Albumin/Globulin Ratio 0.9 (1.1-2.2) L 03/29/17 11:33 Urine Protein 30 mg/dL (Neg-Trace) H 03/29/17 11:12 Urine Microscopic RBC 3-5 per hpf (0-3) H 03/29/17 11:12 Ur Squamous Epith Cells Many per lpf (None-Few) H 03/29/17 11:12 - Clinical Findings Intake & Output: Intake & Output 03/30/17 03/30/17 03/30/17 07:59 15:59 23:59 Intake Total 1343 / 1343 100 / 100 Output Total 375 / 375 600 / 600 Balance 968 / 968 -500 / -500 Weight 90.4 kg - Attending Attestation I examined this patient and my medical decision-making was reviewed with the ORDER ANALYST/PA/Advanced Practice Nurse/Resident Physician. I agree with the documented findings, disposition and treatment plan as described except to the extent set forth below. Patient seen and examined. Labs, radiology, chart personally reviewed. Agree with resident's history and physical, assessment, plan with following comments: RN FIRST ASSISTANT: Patient follows commands, Pulmonary: Acceptable oxygenation and ventilation and was successfully extubated, however patient breathing and respiratory status remained very tenuous and for that reason patient will remain in ICU. BiPAP would be standby. Continue bronchodilators and he will need follow-up as outpatient. Patient was counseled regarding smoking cessation. Cardiovascular: stable GI: Nutrition per dietary and GI prophylaxis per routine Heme: DVT prophylaxis per routine ID: Continue antibiotics and plan to de-escalation Renal; urine out put and renal funtion reviewed Endorcine: blood glucose is monitored Lines: all lines checked and no evidence of infections Skin: skin care to prevent pressure ulcers per nursing routine care
[2017-03-30] MEDS ORDERED: Nicotine 2 MG GUM BC PRN (10:29)
[2017-03-30] MEDS ORDERED: Nicotine 14 MG PATCH.TD24 TD SCH (10:30)
[2017-03-30] MEDS: Budesonide/Formoterol 160/4.5 MDI IH SCH ×2 (11:20→21:29)
[2017-03-30] MEDS ORDERED: Aminoglycoside Consult 1 EACH MC ONE (11:27)
[2017-03-30] MEDS ORDERED: Vancomycin 1 EACH in D5% in Water 250 ML IVPB PRN (12:00)
[2017-03-30] MEDS ORDERED: Vancomycin 1,500 MG in D5% in Water 250 ML IVPB SCH (12:00)
[2017-03-30] MEDS ORDERED: Acetaminophen 325 MG TABLET PO PRN (13:04)
[2017-03-30] MEDS: *HR* OxyCODONE/APAP 5/325 TABLET PO PRN ×3 (13:21→23:08)
[2017-03-30] MEDS: FentaNYL (PF) 1,000 MCG in 0.9 % Sodium Chloride 80 ML IVC SCH (13:46)
[2017-03-30] MEDS: Norepinephrine 4 MG in D5% in Water 250 ML IVC SCH (13:47)
[2017-03-30] MEDS ORDERED: *HR* LORazepam 1 MG TABLET PO PRN (22:44)
[2017-03-31] MEDS: Ipratropium/Albuterol Neb 3 ML IH SCH ×4 (03:39→21:44)
[2017-03-31] MEDS: *HR* OxyCODONE/APAP 5/325 TABLET PO PRN (04:29)
[2017-03-31 04:40] LABS: Basophils % 0.3 %; Eosinophils # 0.2 K/mcL (0.0-0.6); Eosinophils % 1.3 %; Hematocrit 35.6 % (37.5-50.1); Hemoglobin 11.2 g/dL (12.9-16.9); Immature Granulocytes % 0.2 % (0-4); Lymphocytes # 1.9 K/mcL (0.6-4.6); Mean Corpuscular HGB Conc 31.5 g/dL (31.6-35.5); Mean Corpuscular Hemoglobin 27.7 pg (28.0-33.3); Mean Corpuscular Volume 88.1 fL (83.0-100.0); Mean Platelet Volume 9.8 fL (9.4-12.4); Monocytes % 7.9 %; Neutrophils # 9.5 K/mcL (1.6-8.9); Platelet Count 249 K/mcL (140-400); Red Blood Count 4.04 M/mcL (4.19-5.50); Red Cell Distribution Width 15.4 % (11.5-14.5); Segmented Neutrophils % 75.3 %
[2017-03-31 04:51] LABS: Ionized Calcium 1.21 mmol/L (1.15-1.35)
[2017-03-31] MEDS: *HR* Heparin 5,000 UNIT/ML VIAL SQ SCH ×3 (05:58→21:51)
[2017-03-31] MEDS ORDERED: Furosemide 20 MG/2 ML VIAL IVP ONE (06:11)
[2017-03-31 06:17] LABS: ABG Base Excess 7.3 mEq/L (-2.0 to 3.0); ABG HCO3 34.5 mEQ/L (21-27); ABG Oxygen Saturation 92 % (95-98); ABG PCO2 61 mmHg (35-45); ABG PH 7.36 pH Units (7.32-7.45); ABG PO2 65 mmHg (85-104); ABG TCO2 36.4 mEq/L (20-26)
[2017-03-31 06:18] LABS: Blood Gas FiO2 36 %; Blood Gas Liter Flow 4 L/MIN
[2017-03-31] MEDS: Insulin LISPRO 300 UNITS/3 ML VIAL SQ SCH ×2 (08:21→12:13)
[2017-03-31] MEDS: Aztreonam 2,000 MG in D5% in Water (Mini-Bag+) 100 ML IVPB SCH (08:22)
[2017-03-31] MEDS ORDERED: *HR* LORazepam 1 MG TABLET PO ONE (10:04)
--- NOTE | 2017-03-31 10:15 | Pulmonology Progress Note ---
Date of Encounter: 03/31/17 Time of Encounter: 10:13 Assessment and Plan (1) Acute on chronic respiratory failure with hypercapnia Current Visit: Yes Status: Acute Acute respiratory failure with hypoxia hypercapnia secondary to advanced COPD plus pneumonia patient was successfully extubated following his admission to the intensive care unit. Currently requires bronchodilator therapy in conjunction with nasal cannula supplemental oxygen as provided in the home setting. Culture data negative to date hence antibiotic the escalated to Levaquin alone. Patient will transition out of the intensive care unit today. Orders have been written to this effect. He will be transferred from the pulmonary service to hospitalist service. Gabino Calvillo [phone] Code(s): J96.22 - Acute and chronic respiratory failure with hypercapnia SNOMED Code(s): 6326099549073 Subjective Principal diagnosis: Acute respiratory failure with hypoxia, pneumonia, COPD Interval history: Patient was initially admitted to the ICU with respiratory failure secondary to pneumonia and COPD. He is at a favorable course to date. He was successfully transitioned off noninvasive ventilatory support. The patient has advanced COPD, continues to smoke cigarettes in spite of the fact he utilizes supplemental oxygen in the home setting. The patient currently admits to mild cough and chest congestion as well as sputum production. Otherwise review systems unremarkable (other than mild anxiety). Objective PUL Vital signs: Last Vital Signs Temp 97.7 F 03/31/17 07:36 Pulse 88 03/31/17 09:00 Resp 20 03/31/17 09:00 BP 155/74 03/31/17 09:00 Pulse Ox 94 03/31/17 09:00 General appearance: no acute distress, other (Mildly anxious) Eyes: nonicteric Auscultation: bilateral: diminished breath sounds, wheezes Cardiovascular: regular rate and rhythm Gastrointestinal: non-distended Integumentary: normal Musculoskeletal: no deformities non-focal exam Results - Laboratory Findings CBC and BMP: 03/31/17 04:20 03/31/17 04:20 ABG ABG pH 7.36 pH Units (7.32-7.45) 03/31/17 06:07 ABG pCO2 61 mmHg (35-45) H 03/31/17 06:07 ABG pO2 65 mmHg (85-104) L 03/31/17 06:07 ABG O2 Saturation 92 % (95-98) L 03/31/17 06:07 PT/INR, D-dimer PT 11.0 Seconds (9.4-12.1) 03/29/17 11:33 Abnormal lab findings: Abnormal lab results WBC 12.7 K/mcL (4.3-11.1) H 03/31/17 04:20 RBC 4.04 M/mcL (4.19-5.50) L 03/31/17 04:20 Hgb 11.2 g/dL (12.9-16.9) L 03/31/17 04:20 Hct 35.6 % (37.5-50.1) L 03/31/17 04:20 MCH 27.7 pg (28.0-33.3) L 03/31/17 04:20 MCHC 31.5 g/dL (31.6-35.5) L 03/31/17 04:20 RDW 15.4 % (11.5-14.5) H 03/31/17 04:20 Neutrophils # 9.5 K/mcL (1.6-8.9) H 03/31/17 04:20 APTT 25.4 Seconds (26.0-36.0) L 03/29/17 11:33 ABG pCO2 61 mmHg (35-45) H 03/31/17 06:07 ABG pO2 65 mmHg (85-104) L 03/31/17 06:07 ABG HCO3 34.5 mEQ/L (21-27) H 03/31/17 06:07 ABG Total CO2 36.4 mEq/L (20-26) H 03/31/17 06:07 ABG O2 Saturation 92 % (95-98) L 03/31/17 06:07 ABG Base Excess 7.3 mEq/L (-2.0 to 3.0) H 03/31/17 06:07 Carbon Dioxide 33 mEq/L (19-29) H 03/31/17 04:20 Creatinine 1.55 mg/dL (0.72-1.25) H 03/31/17 04:20 Est GFR ( Amer) 56 (> 60) L 03/31/17 04:20 Est GFR (Non-Af Amer) 46 (> 60) L 03/31/17 04:20 POC Glucose 118 (58-89) H 03/29/17 23:18 Troponin I 0.05 ng/mL (0-0.03) H* 03/29/17 11:33 Globulin 3.8 g/dL (2.4-3.5) H 03/29/17 11:33 Albumin/Globulin Ratio 0.9 (1.1-2.2) L 03/29/17 11:33 Urine Protein 30 mg/dL (Neg-Trace) H 03/29/17 11:12 Urine Microscopic RBC 3-5 per hpf (0-3) H 03/29/17 11:12 Ur Squamous Epith Cells Many per lpf (None-Few) H 03/29/17 11:12 - Clinical Findings Intake & Output: Intake & Output 03/30/17 03/31/17 03/31/17 23:59 07:59 15:59 Intake Total 454 / 454 0 / 0 100 / 100 Output Total 200 / 200 650 / 650 Balance 254 / 254 -650 / -650 100 / 100 Weight 90 kg - VTE Documentation of Mechanical Device: Graduated compression elastic hosiery Consult Discharge Plan - Plan Referrals: Madelaine Russell, [employer] [Primary Care Provider] -
[2017-03-31] MEDS ORDERED: D5% in Water 1,000 ML IVC PRN (10:31)
[2017-03-31] MEDS ORDERED: Nicotine 2 MG GUM BC PRN (10:31)
[2017-03-31] MEDS ORDERED: Dextrose Gel 15 GM PO PRN ×2 (10:31)
[2017-03-31] MEDS ORDERED: Ipratropium/Albuterol Neb 3 ML IH PRN (10:31)
[2017-03-31] MEDS ORDERED: *HR* LORazepam 1 MG TABLET PO PRN (10:31)
[2017-03-31] MEDS ORDERED: *HR* OxyCODONE/APAP 5/325 TABLET PO PRN (10:31)
[2017-03-31] MEDS ORDERED: *HR* Dextrose 50 % in Water (Syg) 50 ML SYRINGE IVP PRN (10:31)
[2017-03-31] MEDS ORDERED: Acetaminophen 325 MG TABLET PO PRN (10:31)
[2017-03-31] MEDS: Budesonide/Formoterol 160/4.5 MDI IH SCH (10:56)
[2017-03-31] MEDS ORDERED: Levofloxacin 750 MG/150 ML 750 MG/150 ML BAG IVPB SCH ×2 (15:00)
[2017-03-31] MEDS ORDERED: *HR* LORazepam 2 MG/ML VIAL IVP PRN (15:53)
[2017-03-31] MEDS: *HR* Metformin 500 MG TABLET PO SCH (16:14)
[2017-03-31] MEDS ORDERED: Melatonin 3 MG TABLET PO PRN (21:04)
[2017-03-31] MEDS ORDERED: Budesonide/Formoterol 160/4.5 MDI IH SCH (22:00)
[2017-04-01] MEDS: Ipratropium/Albuterol Neb 3 ML IH SCH (03:42)
[2017-04-01 04:48] LABS: Basophils % 0.5 %; Eosinophils # 0.2 K/mcL (0.0-0.6); Eosinophils % 1.9 %; Hematocrit 33.5 % (37.5-50.1); Hemoglobin 10.5 g/dL (12.9-16.9); Immature Granulocytes % 0.2 % (0-4); Lymphocytes # 1.6 K/mcL (0.6-4.6); Lymphocytes % 18.7 %; Mean Corpuscular HGB Conc 31.3 g/dL (31.6-35.5); Mean Corpuscular Hemoglobin 27.6 pg (28.0-33.3); Mean Corpuscular Volume 87.9 fL (83.0-100.0); Mean Platelet Volume 10.3 fL (9.4-12.4); Monocytes # 0.7 K/mcL (0.0-1.3); Monocytes % 8.2 %; Neutrophils # 5.8 K/mcL (1.6-8.9); Platelet Count 255 K/mcL (140-400); Red Blood Count 3.81 M/mcL (4.19-5.50); Segmented Neutrophils % 70.5 %
[2017-04-01 04:58] LABS: Ionized Calcium 1.19 mmol/L (1.15-1.35)
[2017-04-01 05:01] LABS: Calcium 8.9 mg/dL (8.6-10.8); Magnesium 1.7 mg/dL (1.6-2.6); Phosphorous 3.5 mg/dL (2.3-4.7); Potassium 4.2 mEq/L (3.5-4.5)
[2017-04-01 07:19] VITALS: BP 147/58
[2017-04-01] MEDS: *HR* Heparin 5,000 UNIT/ML VIAL SQ SCH (07:29)
[2017-04-01] MEDS: Insulin LISPRO 300 UNITS/3 ML VIAL SQ SCH (07:41)
[2017-04-01] MEDS ORDERED: predniSONE 20 MG TABLET PO SCH (09:00)
[2017-04-01] MEDS: *HR* Metformin 500 MG TABLET PO SCH (09:19)
--- NOTE | 2017-04-01 09:22 | Pulmonology Progress Note ---
Date of Encounter: 04/01/17 Time of Encounter: 09:19 Assessment and Plan (1) Acute on chronic respiratory failure with hypercapnia Current Visit: Yes Status: Acute Acute respiratory failure with hypoxia hypercapnia secondary to advanced COPD plus pneumonia patient was successfully extubated following his admission to the intensive care unit. Currently requires bronchodilator therapy in conjunction with nasal cannula supplemental oxygen as provided in the home setting. Culture data negative to date hence antibiotic the de-escalated to Levaquin alone. Continue current medical management for COPD and pneumonia. Levaquin can be transitioned to oral route. I recommend completion of an eight-day course. Prednisone has been reordered and this can be discontinued within the next week. Home going therapies for COPD to include nebulized treatments via DuoNeb and use of an inhaled steroid/LSABA product. The importance of smoking cessation was rediscussed with the patient this morning. Gabino Calvillo [phone] Code(s): J96.22 - Acute and chronic respiratory failure with hypercapnia SNOMED Code(s): 8225677180160 Subjective Principal diagnosis: Acute respiratory failure with hypoxia, pneumonia, COPD Interval history: Patient was initially admitted to the ICU with respiratory failure secondary to pneumonia and COPD. He has had a favorable course to date. He was successfully transitioned off invasive ventilatory support. The patient was transferred to the floor yesterday afternoon. Transfer orders were written including consultation with hospitalist and I personally spoke with one of the interns on the hospitalist service yesterday. Unfortunately, it would seem that the hospitalist service was not notified. Nonetheless, I have reconsults with the hospitalist service to manage this patient who perhaps may be able to transition out of the hospital within the next 24-36 hours. The patient has advanced COPD, continues to smoke cigarettes in spite of the fact he utilizes supplemental oxygen in the home setting. The patient currently admits to mild cough and chest congestion as well as sputum production. Otherwise review systems unremarkable (other than mild anxiety). Patient claims that since his admission to the hospital, he has noted a substantial improvement in his respiratory and functional status. Objective PUL Vital signs: Last Vital Signs Temp 98.4 F 04/01/17 07:14 Pulse 89 04/01/17 07:14 Resp 18 04/01/17 07:14 BP 147/58 04/01/17 07:14 Pulse Ox 94 04/01/17 07:14 Eyes: nonicteric ENT: oropharynx moist Neck: supple Effort: normal Auscultation: bilateral: diminished breath sounds, rhonchi Cardiovascular: regular rate and rhythm Gastrointestinal: normoactive bowel sounds, non-distended Extremities: no cyanosis Musculoskeletal: no deformities normal mental status, non-focal exam mood appropriate Results - Laboratory Findings CBC and BMP: 04/01/17 03:24 04/01/17 03:24 ABG ABG pH 7.36 pH Units (7.32-7.45) 03/31/17 06:07 ABG pCO2 61 mmHg (35-45) H 03/31/17 06:07 ABG pO2 65 mmHg (85-104) L 03/31/17 06:07 ABG O2 Saturation 92 % (95-98) L 03/31/17 06:07 PT/INR, D-dimer PT 11.0 Seconds (9.4-12.1) 03/29/17 11:33 Abnormal lab findings: Abnormal lab results RBC 3.81 M/mcL (4.19-5.50) L 04/01/17 03:24 Hgb 10.5 g/dL (12.9-16.9) L 04/01/17 03:24 Hct 33.5 % (37.5-50.1) L 04/01/17 03:24 MCH 27.6 pg (28.0-33.3) L 04/01/17 03:24 MCHC 31.3 g/dL (31.6-35.5) L 04/01/17 03:24 RDW 15.0 % (11.5-14.5) H 04/01/17 03:24 APTT 25.4 Seconds (26.0-36.0) L 03/29/17 11:33 ABG pCO2 61 mmHg (35-45) H 03/31/17 06:07 ABG pO2 65 mmHg (85-104) L 03/31/17 06:07 ABG HCO3 34.5 mEQ/L (21-27) H 03/31/17 06:07 ABG Total CO2 36.4 mEq/L (20-26) H 03/31/17 06:07 ABG O2 Saturation 92 % (95-98) L 03/31/17 06:07 ABG Base Excess 7.3 mEq/L (-2.0 to 3.0) H 03/31/17 06:07 Creatinine 1.50 mg/dL (0.72-1.25) H 04/01/17 03:24 Est GFR ( Amer) 58 (> 60) L 04/01/17 03:24 Est GFR (Non-Af Amer) 48 (> 60) L 04/01/17 03:24 POC Glucose 118 (58-89) H 03/29/17 23:18 Troponin I 0.05 ng/mL (0-0.03) H* 03/29/17 11:33 Globulin 3.8 g/dL (2.4-3.5) H 03/29/17 11:33 Albumin/Globulin Ratio 0.9 (1.1-2.2) L 03/29/17 11:33 Urine Protein 30 mg/dL (Neg-Trace) H 03/29/17 11:12 Urine Microscopic RBC 3-5 per hpf (0-3) H 03/29/17 11:12 Ur Squamous Epith Cells Many per lpf (None-Few) H 03/29/17 11:12 - Clinical Findings Intake & Output: Intake & Output 03/31/17 04/01/17 04/01/17 23:59 07:59 15:59 Intake Total 0 / 0 Output Total 450 / 450 200 / 200 Balance -450 / -450 -200 / -200 - VTE Documentation of Mechanical Device: Graduated compression elastic hosiery Consult Discharge Plan - Plan Referrals: Madelaine Russell, [employer] [Primary Care Provider] -
--- NOTE | 2017-04-01 10:42 | Discharge Summary ---
Date of Encounter: 04/01/17 Time of Encounter: 08:20 - Discharge Diagnosis (1) Septic shock Priority: Primary Status: Resolved (2) Acute on chronic respiratory failure with hypercapnia Priority: Primary Status: Resolved (3) HCAP (healthcare-associated pneumonia) Priority: Primary Status: Acute (4) HTN (hypertension) Priority: Secondary Status: Chronic Qualifiers: Hypertension type: essential hypertension Qualified Code(s): I10 - Essential (primary) hypertension (5) Tobacco abuse Priority: Secondary Status: Chronic (6) Acute kidney injury Priority: Primary Status: Acute (7) Diabetes mellitus Priority: Secondary Status: Chronic Qualifiers: Diabetes mellitus type: type 2 Diabetes mellitus complication status: with unspecified complications Diabetes mellitus group home insulin use: unspecified group home insulin use status Qualified Code(s): E11.8 - Type 2 diabetes mellitus with unspecified complications (8) CAD (coronary artery disease) Priority: Secondary Status: Chronic Qualifiers: Coronary Disease-Associated Artery/Lesion type: unspecified vessel or lesion type [place] vs. transplanted heart: unspecified whether [place] or transplanted heart Associated angina: angina presence unspecified Qualified Code(s): I25.10 - Atherosclerotic heart disease of [place] coronary artery without angina pectoris (9) COPD exacerbation Priority: Primary Status: Suspected - Discharge Medications Prescriptions: levoFLOXacin [Levaquin] 750 mg PO Q48H #5 tablet predniSONE [PredniSONE] 40 mg PO DAILY #4 tablet Home Medications: Albuterol Sulfate [Ventolin Hfa] 2 puff IH Q4H PRN 03/17/17 [History] Albuterol Sulfate [Ventolin Hfa] 2 puff IH Q4H PRN 03/29/17 [History] Aspirin [Lo-Dose Aspirin EC] 81 mg PO DAILY 03/29/17 [History] Carvedilol 12.5 mg PO BID 03/29/17 [History] Clobetasol Propionate [Temovate] 1 appl TP BID 03/29/17 [History] Clopidogrel [Plavix] 75 mg PO DAILY 03/29/17 [History] Fluticasone/Salmeterol [Advair Hfa 230-21 Mcg Inhaler] 2 puff IH BID 03/29/17 [ History] Gabapentin [Neurontin] 600 mg PO TID 03/29/17 [History] LORazepam [Ativan] 0.5 - 1 mg PO HS 03/29/17 [History] Lisinopril [Zestril] 10 mg PO DAILY 03/29/17 [History] Metformin HCl [Metformin HCl ER] 500 mg PO BID 03/29/17 [History] Oxygen 2 l NS AD 03/29/17 [History] Tiotropium Br/Olodaterol HCl [Stiolto Respimat Inhal [place]] 2 puff IH DAILY [History] Tramadol HCl [Ultram] 50 mg PO TID PRN 03/29/17 [History] Furosemide [Lasix] 20 mg PO DAILY #30 04/01/17 [Rx] Nicotine Gum [Nicorette gum] 4 mg BC Q2H PRN 04/01/17 [Rx] levoFLOXacin [Levaquin] 750 mg PO Q48H #5 tablet 04/01/17 [Rx] predniSONE [PredniSONE] 40 mg PO DAILY #4 tablet 04/01/17 [Rx] Allergies/Adverse Reactions: Allergies Penicillins Allergy (Verified 06/16/15 15:07) Hives Sulfa (Sulfonamide Antibiotics) Allergy (Verified 06/16/15 15:07) Hives Date of admission: 03/29/17 12:41 Primary care physician: Madelaine Russell CNP Consults: 04/01/17 09:12 Consult to Hospitalist [CONS] Routine Consulting Provider: Hospitalist Sugar Reason for Consult: assume care, out of ICU, COPD spoke with physician yesterday Time Notified: 09:13 Call Completed: Yes Discharging clinician: Isaiah Sanchez Anticipated date of discharge: 04/01/17 - Patient Status Disposition: Home, Self-Care Condition: Fair Functional capacity at discharge: independent ambulation Overall status at discharge: patient is progressing back to baseline - Discharge Instructions Instructions: Sepsis (DC), Pneumonia (DC) Follow Up With: Madelaine Russell CNP [Primary Care Provider] - (web request sent on 04/01/17- office will call you with follow up appointment ) Additional Instructions: TAKE YOUR ANTIBIOTICS EVERY OTHER DAY STARTING FROM 04/03, FOR 5 MORE DOSES FOLLOW UP WITH YOUR PCP AND ANCHORMAN YOUR LASIX HAS BEEN DECREASED FROM 40MG BID TO 20MG DAILY, DUE TO ACUTE KIDNEY INJURY ON ADMISSION FOLLOW UP WITH YOUR PCP FOR TITRATION AND INCREASE IN YOUR LASIX YOUR KIDNEY FUNCTION IMPROVES - Diet and Activity Activity: resume usual activities as tolerated, wear oxygen at all times Diet: diabetic diet, low fat, low cholesterol, low salt diet Interval History: See below Hospital course: Mr. Joseph is a 61 year old male with medical history of coronary artery disease, tobacco abuse, diabetes mellitus, COPD on home oxygen, hypertension, active tobacco use. Patient was admitted to the ICU directly from the emergency room for management of septic shock secondary to healthcare associated pneumonia, he was also in septic shock with acute kidney injury at the time of admission. Patient was intubated in the ER for acute hypercapnic respiratory failure, and managing the medical ICU. He did not respond to IV fluids, therefore he was started on his workup on admission revealed fever with a temperature 102.9 Fahrenheit, he was tachycardic with a heart rate to 121, his white count was 25,000, his chest x- ray showed a right lower lobe pneumonia. The patient was recently in the hospital about 2 weeks ago for management of an STEMI. His creatinine on admission was 2.0 for his baseline is less than 1, he had hyperkalemia with a potassium of 5.1 on presentation.. Lactate level was elevated at 2.6, troponin was elevated at 0.05. The patient was managed in the ICU with mechanical ventilation, antibiotics which included aztreonam, Levaquin, and vancomycin, DVT and GI prophylaxis, and bronchodilators and steroids for COPD exacerbation. Patient was successfully extubated on 7:15 710, and tolerated transition to supplemental oxygen by nasal cannula. His blood culture was negative hence his antibiotics with the escalated to Levaquin alone. Patient was then transferred to the medicine floors. Patient is seen and evaluated at the bedside this morning, he denied any new complaints, and continuously asked to be discharged home. His leukocytosis has resolved completely, he is ambulatory without increasing oxygen requirements, he is afebrile for greater than 48 hours, ANAHI is resolving. His creatinine now at 1.5, His physical examination is remarkable for trace pedal edema bilaterally otherwise he is clinically stable. Patient is stable to be discharged home, to take 5 more doses of levofloxacin every 48 hours, to complete a total of 8 days of antibiotics for his pneumonia. Complete 5 days total of prednisone Continue to take his albuterol and LABA/Steroid MDI His blood pressure has been stable on current medications, he is discharged on the same. The patient was taking Lasix 40 mg twice a day at home, however, Lasix has been held since admission due to AKA. He is discharged on 20 mg daily of Lasix as he clinically has pedal edema. Encouraged follow up with primary care physician for titration of medications with renal function. Educated on smoking cessation 4 minutes, patient plans to self-quit and declines any nicotine replacement therapy. Plan of care discussed with the patient and he verbalizes understanding. He has adequate family support, his daughter is not home health attendant, and is able to take care of him at home. Time spent discussing smoking cessation with patient: 3 to 10 minutes - Time Spent with Patient Total time spent providing and/or coordinating discharge services: Greater than 30 minutes - Constitutional Vitals: Temp Pulse Resp BP Pulse Ox 98.4 F 89 18 147/58 94 04/01/17 07:14 04/01/17 07:14 04/01/17 07:14 04/01/17 07:14 04/01/17 07:14 General appearance: Present: A&O X 3, pleasant, no acute distress - Head Head exam: Present: atraumatic, normocephalic - Eye Eye exam: Present: PERRL, conjuntiva pink, sclera anicteric Pupils: Present: PERRL - Neck Neck exam general surgery: Present: supple, trachea midline. Absent: lymphadenopathy - Respiratory Respiratory exam: Present: CTAB. Absent: accessory muscle use, rales, rhonchi, wheezes - Cardiovascular Cardiovascular exam: Present: RRR, +S1, +S2. Absent: diastolic murmur, gallop, rubs, systolic murmur - GI/Abdominal GI/Abdominal exam: Present: normal bowel sounds, soft, no peritoneal signs. Absent: distended, tenderness - Extremities Exam Extremities exam: Present: pedal edema, warm, radial pulses palpable and symetrical. Absent: calf tenderness, cyanotic - Neurological Exam Neurological exam: Present: alert, CN II-XII intact, oriented X3, no focal deficits. Absent: pronater drift, facial droop, speech deficit - Skin Skin exam: Present: dry, intact - VTE Documentation of Mechanical Device: Graduated compression elastic hosiery
== END 2017-04-01 11:28 | disposition home or self-care (01) | DRG 871 ==
LOC: EMEROO 10:48 → ICNU 12:41 → MERGE 12:41 → SUATTDRO 12:41 → ICNU 14:13 → 2ANU 03-31 11:53
PROVIDERS: ADMIT Internal Medicine Pulmonary Disease; ATTEND Specialist

== ENCOUNTER 2018-06-30 22:14 | Inpatient (IN) ==
[2018-06-30] MEDS ORDERED: Cefepime HCl 2,000 MG in Water for inj. (sterile) 20 ML 20 ML IVP ONE (22:30)
[2018-06-30] MEDS ORDERED: methylPREDNISolone 125 MG/2 ML VIAL IVP ONE (22:32)
[2018-06-30] MEDS ORDERED: Ipratropium/Albuterol Neb 3 ML IH ONE (22:32)
[2018-06-30 22:41] LABS: Basophils # 0.1 K/mcL (0.0-0.2); Basophils % 0.3 %; Eosinophils # 0.3 K/mcL (0.0-0.6); Eosinophils % 1.4 %; Hematocrit 41.2 % (37.5-50.1); Hemoglobin 12.9 g/dL (12.9-16.9); Immature Granulocytes % 0.7 % (0-4); Lymphocytes % 9.3 %; Mean Corpuscular HGB Conc 31.3 g/dL (31.6-35.5); Mean Corpuscular Hemoglobin 29.3 pg (28.0-33.3); Mean Corpuscular Volume 93.4 fL (83.0-100.0); Mean Platelet Volume 9.7 fL (9.4-12.4); Monocytes # 2.6 K/mcL (0.0-1.3); Monocytes % 11.9 %; Neutrophils # 16.5 K/mcL (1.6-8.9); Platelet Count 413 K/mcL (140-400); Red Blood Count 4.41 M/mcL (4.19-5.50); Red Cell Distribution Width 13.2 % (11.5-14.5); Segmented Neutrophils % 76.4 %
--- NOTE | 2018-06-30 22:41 | Emergency Department Note ---
Disposition Clinical Impression: Acute exacerbation of chronic obstructive airways disease Disposition: Admitted As Inpatient Condition: Good Time of Disposition: 22:57 General Adult HPI - General Stated complaint: PATEL Time Seen by Provider: 06/30/18 22:21 Source: patient Mode of arrival: wheelchair Limitations: other (Dyspneic) Nursing Notes Reviewed: Yes Vital Signs Reviewed: Yes - History of Present Illness HPI Narrative: Male patient presenting tumor spine with his daughter. Daughter gives most of the story is patient is severely dyspneic and diaphoretic. He does have a history of COPD and generally wears 4 L of oxygen via nasal cannula at home. Daughter states that over the past 2 days he has gotten increasingly short of breath and has a productive cough. This is a yellow sputum. There have been no fevers. He denies any chest pain nausea vomiting or abdominal pain. The daughter states this happened similarly in March whenever the patient was diagnosed with MRSA pneumonia. She states that he has been using his inhalers more than normal. The daughter states that his legs have not been swelling recently. There have been no rashes. He has been mentating appropriately and has not had any episodes where he has passed out. - Related Data Home Medications Medication Instructions Recorded Confirmed Albuterol Sulfate [Ventolin Hfa] 2 puff IH Q4H PRN 03/17/17 06/30/18 Aspirin [Lo-Dose Aspirin EC] 81 mg PO DAILY 03/29/17 06/30/18 Clopidogrel [Plavix] 75 mg PO DAILY 03/29/17 06/30/18 LORazepam [Ativan] 1 mg PO HS 03/29/17 06/30/18 Lisinopril [Zestril] 10 mg PO DAILY 03/29/17 06/30/18 Metformin HCl [Metformin HCl ER] 500 mg PO BID 03/29/17 06/30/18 Tramadol HCl [Ultram] 50 mg PO TID PRN 03/29/17 06/30/18 Furosemide [Lasix] 40 mg PO DAILY 06/30/18 06/30/18 Previous Rx's Medication Instructions Recorded Fluticasone/Salmeterol [Advair Hfa 2 puff IH BID #1 hfa.aer.ad 10/21/17 230-21 Mcg Inhaler] Labetalol [Trandate] 200 mg PO BID 30 Days #60 tablet 02/04/18 hydrALAZINE [HydrALAZINE] 25 mg PO Q8HR #90 tablet 10/21/17 Allergies Allergy/AdvReac Type Severity Reaction Status Date / Time Penicillins Allergy Hives Verified 06/16/15 15:07 Sulfa (Sulfonamide Allergy Hives Verified 06/16/15 15:07 Antibiotics) All systems ED: reviewed and negative except as stated. Review of Systems: As Per HPI Past Medical History - Past Medical History Attestation: Yes The following information was validated with the patient. Source: patient Medical history: Reports: diabetes, myocardial infarction, hypertension, coronary artery disease, COPD Surgical history: Reports: other (Cardiac stent) Psychiatric history: Reports: anxiety - Social History Smoking Status: Current every day smoker Smokeless Tobacco Status: No Alcohol use: Reports: none Drug use: Reports: none Physical Exam - General Limitations: other (Patient diaphoretic and in respiratory distress.) General appearance: in distress - Head Head exam: atraumatic, normocephalic, normal inspection - Eye Eye exam: Present: normal appearance, PERRL, EOMI. Absent: scleral icterus - ENT ENT exam: normal exam, normal oropharynx, mucous membranes moist - Neck Neck exam: Present: normal inspection, full ROM, trachea midline - Chest Chest inspection: Present: normal inspection, symmetric chest wall rise. Absent : tenderness - Respiratory Respiratory exam: Present: other (Patient's upper lung rich extremely tight. There is rhonchi in the right lower lobe.) - Cardiovascular Cardiovascular exam: Present: regular rate, normal rhythm, normal heart sounds - Abdominal Exam Abdominal exam: Present: soft, Non-Tender. Absent: distention, rigidity, organomegaly - Extremities Exam Extremities exam: Present: normal inspection, normal capillary refill. Absent: tenderness, pedal edema, calf tenderness - Neurological Exam Neurological exam: Present: alert, oriented X3 - Psychiatric Psychiatric exam: Present: normal affect, normal mood - Skin Skin exam: Present: warm, normal color, diaphoresis. Absent: cyanosis Course Course Narrative: Patient does meet sepsis criteria. We will not be giving patient a fluid bolus as he does have a history of CHF he does appear to be euvolemic and he is hypertensive currently. We will be withholding fluids for these results. Patient does have a history of MRSA pneumonia. He was admitted to the hospital in March for this. We have placed patient on vancomycin and cefepime he does have a penicillin allergy. Patient's lung sounds were very tight in the upper lobes. He does have some rhonchi in the right lower lobe. We are giving him a triple DuoNeb at this time placing him on BiPAP. He was initially 67% on his home 4 L whenever he arrived here. He had an oxygen saturation of 100% nonrebreather. He does appear to be diaphoretic. He denies any chest pain but does report shortness of breath or cough. We will get a basic lab workup on patient and a chest x-ray. We will provide him with steroids and admitted to the hospital. He is agreeable with this plan. - Consultations Consultation #1: Dr Yuan accepted Pt in stable condition. Time: 22:58 Vital Signs Temperature 98.5 F 06/30/18 22:20 Pulse Rate 114 06/30/18 22:20 Respiratory Rate 26 06/30/18 22:20 Blood Pressure 194/73 06/30/18 22:20 O2 Sat by Pulse Oximetry 67 06/30/18 22:20 Temperature 98.5 F 06/30/18 22:20 Pulse Rate 104 06/30/18 22:56 Respiratory Rate 28 06/30/18 22:56 Blood Pressure 178/68 06/30/18 22:56 O2 Sat by Pulse Oximetry 95 06/30/18 22:56 Oxygen Delivery Oxygen Delivery Bipap Medical Decision Making - Medical Records Medical records reviewed: Yes I reviewed the patient's medical records. - Lab Data Lab results reviewed: Yes I reviewed the patient's lab results. Result diagrams: 06/30/18 22:31 Lab Results 06/30/18 06/30/18 Range/Units 22:31 22:31 WBC 21.5 H (4.3-11.1) K/mcL RBC 4.41 (4.19-5.50) M/mcL Hgb 12.9 (12.9-16.9) g/dL Hct 41.2 (37.5-50.1) % MCV 93.4 (83.0-100.0) fL MCH 29.3 (28.0-33.3) pg MCHC 31.3 L (31.6-35.5) g/dL RDW 13.2 (11.5-14.5) % Plt Count 413 H (140-400) K/mcL MPV 9.7 (9.4-12.4) fL Immature Gran % 0.7 (0-4) % Seg Neutrophils % 76.4 % Lymphocytes % 9.3 % Monocytes % 11.9 % Eosinophils % 1.4 % Basophils % 0.3 % Neutrophils # 16.5 H (1.6-8.9) K/mcL Lymphocytes # 2.0 (0.6-4.6) K/mcL Monocytes # 2.6 H (0.0-1.3) K/mcL Eosinophils # 0.3 (0.0-0.6) K/mcL Basophils # 0.1 (0.0-0.2) K/mcL Lactic Acid 1.4 (0.5-2.2) mmol/L - Radiology Data Radiology results reviewed: Yes I reviewed the patient's radiology results. Chest X-Ray 06/30/18 22:22 IMPRESSION: Pulmonary sequela typical of that seen with smoking, including emphysema. Correlate with clinical history. Calcific atherosclerotic disease aorta. D/ / Biju Estevez / Biju Estevez Interpreting Provider: Biju Estevez - EKG Data EKG #1 EKG attestation: Yes I reviewed and interpreted this EKG. EKG results narrative: Sinus tachycardia at a rate of 109. DC interval is 136. QRS duration is 94. QT is 325. QTC is 438. No signs of acute ischemia. Slow R-wave progression. No significant change from previous EKG dated 10/15/2017. Critical Care Time Critical Care Time: Yes Total Critical Care Time: 35 Attestation: Acute respiratory distress; bipap required Attestation Statement - Attestation Attestation: Dr. Joy note: Pt seen in conjunction w/ resident Dr Kimberly Craig; Please see her charting for complete documentation; I spent face to face time w/ the pt and agree w/ pts treatment and disposition; progressive dyspnea for for 5 days. Diaphoresis began today. Patient is a long-term smoker with history of pneumonia in the past which required intubation. Arrives with saturations in the 60-70% range. Tachypnea was noted but he was able to speak in full sentences. X-ray reviewed. CBC reviewed. I was at bedside for the patient's arrival to ER. 4. Patient was accepted by the hospitalist at 10:[address] Oglesby
[2018-06-30 23:03] LABS: INR 0.9; Prothrombin Time 10.5 Seconds (9.4-12.1)
[2018-06-30 23:05] LABS: Activated Partial Thrombo Time 25.2 Seconds (26.0-36.0)
[2018-06-30 23:10] LABS: BUN/Creatinine Ratio 16 (6-26); Blood Urea Nitrogen 33 mg/dL (8-23); Calcium 9.8 mg/dL (8.6-10.3); Carbon Dioxide 26 mEq/L (23-29); Chloride 99 mEq/L (98-107); Glucose 197 mg/dL (70-105); Osmolality,Calculated 289 (280-300); Potassium 5.5 mEq/L (3.5-5.1); Sodium 133 mEq/L (136-145); Troponin I < 0.03 ng/mL (< 0.04); eGFR For Non-African Americans 33 (> 60)
[2018-06-30 23:21] LABS: Magnesium 2.2 mg/dL (1.6-2.6); Phosphorous 4.5 mg/dL (2.7-4.5)
[2018-07-01] MEDS ORDERED: Naloxone 0.4 MG/ML INJ IVP PRN (00:08)
[2018-07-01 00:21] LABS: VBG PH 7.21 pH Units (7.32-7.42)
--- NOTE | 2018-07-01 00:21 | Internal Med History&Physical ---
<Jose Miguel Serra - Last Filed: 07/01/18 00:16> Date of Encounter: 07/01/18 Time of Encounter: 00:16 Internal Medicine - H&P: HPI Chief complaint: Shortness of breath Admitted From: Home Plans for Post Hospital Care: Home History of present illness: Mr. Joseph is a 62 year old male presents with chief complaint of shortness of breath 2 days. Patient has a history of COPD on 4 L oxygen and is a current smoker. he has had worsening shortness of breath with productive cough , yellow sputum. Patient shortness of breath was refractory to nebulizer treatments and home inhalers as well as cough medication. Patient does report runny nose, sinus pressure. He denied fever, chills, sick contacts, chest pain , abdominal pain, fatigue, muscle aches, nausea, vomiting. Patient underwent chest x-ray showed right lower lobe opacification. He was tachypneic, tachycardic with leukocytosis of 21. He was started on broad-spectrum antibiotics. Patient was last in the hospital in September 2017 where he was diagnosed with MRSA pneumonia as well as RSV and was intubated for 2 days. Past Med Surg Social Fam HX - Past Medical History Medical history: diabetes, myocardial infarction, hypertension, coronary artery disease, COPD Psychiatric history: anxiety - Past Surgical History Surgical History: other (Cardiac stent) Additional surgical history: cardiac cath with stent - Social History Smoking Status: Current every day smoker Smokeless Tobacco Status: No Alcohol use: none Drug use: none - Family History Mother Living Status: Hx Family Cardiac Disorders: Yes Hx Family Respiratory Disorders: No Hx Family Cancer: No Hx Family GI Disorders: Yes Internal Medicine - H&P: Meds Albuterol Sulfate [Ventolin Hfa] 2 puff IH Q4H PRN 03/17/17 [History] Aspirin [Lo-Dose Aspirin EC] 81 mg PO DAILY 03/29/17 [History] Clopidogrel [Plavix] 75 mg PO DAILY 03/29/17 [History] LORazepam [Ativan] 1 mg PO HS 03/29/17 [History] Lisinopril [Zestril] 10 mg PO DAILY 03/29/17 [History] Metformin HCl [Metformin HCl ER] 500 mg PO BID 03/29/17 [History] Tramadol HCl [Ultram] 50 mg PO TID PRN 03/29/17 [History] Fluticasone/Salmeterol [Advair Hfa 230-21 Mcg Inhaler] 2 puff IH BID #1 hfa.aer.ad 10/21/17 [Rx] Labetalol [Trandate] 200 mg PO BID 30 Days #60 tablet 10/21/17 [Rx] hydrALAZINE [HydrALAZINE] 25 mg PO Q8HR #90 tablet 10/21/17 [Rx] Furosemide [Lasix] 40 mg PO DAILY 06/30/18 [History] Albuterol Sulfate [Albuterol Inhaler] 2 puff IH Q4HR PRN 07/01/18 [History] Atorvastatin [Lipitor] 20 mg PO HS 07/01/18 [History] Tiotropium [Spiriva] 2 puff IH DAILY 07/01/18 [History] 3 Allergy/AdvReac Type Severity Reaction Status Date / Time Penicillins Allergy Hives Verified 06/16/15 15:07 Sulfa (Sulfonamide Allergy Hives Verified 06/16/15 15:07 Antibiotics) All Systems PM: A 10-system review of systems was performed and is negative for pertinent findings except as documented above in the HPI. Review of systems: Constitutional: Denies fever, chills, reports diaphoresis HEENT: Denies headache, trauma, blurry vision, eye discharge, ear pain, ear discharge neck pain, sore throat, reports rhinorrhea Heart: Denies chest pain palpitations, LE edema Lungs: Reports shortness of breath cough Abdomen: Denies abdominal pain nausea vomiting diarrhea MSK: Denies back pain, falls, joint pain Kidney: Denies dysuria, hematuria Skin: Denies rash, ulcers Neuro: Denies numbness and tingling Psych: denies axniety, depression - Constitutional Vitals: Temp Pulse Resp BP Pulse Ox 97.5 F L 92 24 130/70 94 06/30/18 23:54 06/30/18 23:54 06/30/18 23:54 06/30/18 23:54 06/30/18 23:54 Exam: General: pleasant, mild distress HEENT: Head atraumatic, normocephalic, EOMI, PERRL, absent ear discharge or trauma, and BiPAP Neck: nontender to palpation, absent lymphadenopathy, Cardiovascualr: Sinus tachycardia no murmur, absent gallops or rubs, absent pedal edema, radial pulses 2 out of 4 Lungs: Right lower lobe bronchi, and expiratory wheezing bilaterally, mild respiratory distress Abdomen: Soft nontender, nondistended positive bowel sounds, absent hepatomegaly Skin: warm and dry, absent rash, absent open wounds and nodules MSK: absent clubbing, cyanosis, joints without swelling Neuro: Cranial nerves II through XII intact, UE and LE sensation equal bilaterally, UE and LEstrength 5/5, alert oriented 3, Psych: good insight and judgment, anxious, Internal Med - H&P Results - Labs CBC & Chem 7: 06/30/18 22:31 06/30/18 22:31 - Assessment and plan (1) Acute respiratory failure with hypoxia Current Visit: Yes Status: Acute Assessment and plan: Secondary to pneumonia, COPD exacerbation Currently patient is on BiPAP requiring 30% FiO2 Chest x-ray shows right lower lobe opacification Lung exam: Patient is rhonchorous on the right lower lobe. Absent crackles He reports his shortness of breath and work of breathing have improved considerably We will also start patient on IV steroids, scheduled DuoNeb's Order ABG (2) Severe sepsis Current Visit: Yes Status: Acute Assessment and plan: Secondary to pneumonia Patient was tachypneic, tachycardic, leukocytosis in the setting of worsening kidney function We will give gentle hydration as patient is adequately maintaining his blood pressure and has a history of coronary artery disease, chf, on lasix Lactic acid 1.4 Blood cultures sent (3) Pneumonia Current Visit: Yes Status: Acute Assessment and plan: Pneumonia, bacterial Chest x-ray shows right lower lobe opacification Patient has a history of MRSA pneumonia, RSV, and was intubated for this in September 2017 Blood cultures have been sent, We will send respiratory infectious panel, urine Legionella and streptococcal antigen We will start patient on vancomycin and cefepime as he is allergic to penicillins Qualifiers: Pneumonia type: due to unspecified organism Laterality: right Lung location: lower lobe of lung Qualified Code(s): J18.1 - Lobar pneumonia, unspecified organism (4) HTN (hypertension) Current Visit: Yes Status: Chronic Assessment and plan: Patient has a history of hypertension We will continue patient's labetalol, but we will hold Lasix and lisinopril due to acute kidney injury. Qualifiers: Hypertension type: essential hypertension Qualified Code(s): I10 - Essential (primary) hypertension (5) Tobacco abuse Current Visit: Yes Status: Chronic Assessment and plan: Patient has a history of smoking As per daughter patient is trying to quit with Chantix but continues to smoke around 6 cigarettes a day Patient educated on smoking cessation and its benefits. (6) DVT prophylaxis Current Visit: Yes Status: Acute Assessment and plan: Heparin subcutaneous (7) Diabetes mellitus Current Visit: Yes Status: Chronic Assessment and plan: Patient is mxk-[id number]-[id number] type 2 diabetes mellitus His last hemoglobin A1c was 6.7 Currently patient is NPO due to being on BiPAP We will start him on every 6 hours Accu-Cheks and low-dose sliding scale insulin Qualifiers: Diabetes mellitus type: type 2 Diabetes mellitus half-way insulin use: unspecified half-way insulin use status Diabetes mellitus complication status : with unspecified complications Qualified Code(s): E11.8 - Type 2 diabetes mellitus with unspecified complications (8) COPD exacerbation Current Visit: Yes Status: Acute Assessment and plan: Secondary to pneumonia Patient is on IV steroids, scheduled DuoNeb's, IV antibiotics. (9) Acute kidney injury Current Visit: Yes Status: Acute Assessment and plan: Patient's baseline serum creatinines 1.6 Serum creatinine on presentation is 2.07 likely secondary to severe sepsis Patient receiving IV fluids as per sepsis protocol We will hold lisinopril and Lasix. strict I/O BMP (10) CAD (coronary artery disease) Current Visit: Yes Status: Chronic Assessment and plan: Patient has a history of coronary artery disease Last echocardiogram was in 04/02 showed LVEF of 60-65% with normal left ventricular chamber size and function Patient denies chest pain EKG shows sinus tachycardia without ST-T wave elevation or depression. Troponins within normal limits BNP 118 We will continue patient's aspirin, Plavix, atorvastatin, labetalol. Qualifiers: Coronary Disease-Associated Artery/Lesion type: [place] artery [place] vs. transplanted heart: [place] heart Associated angina: without angina Qualified Code(s): I25.10 - Atherosclerotic heart disease of [place] coronary artery without angina pectoris - Time Spent With Patient Total time spent is greater than 50% in coordination of care (as documented) at patient's floor/unit and/or counseling patient: <Cj Yuan - Last Filed: 07/01/18 05:40> Date of Encounter: 07/01/18 Internal Medicine - H&P: HPI History of present illness: Mr. Joseph is a 62 year old male All Systems PM: A 10-system review of systems was performed and is negative for pertinent findings except as documented above in the HPI. - Constitutional Vitals: Temp Pulse Resp BP Pulse Ox 97.5 F L 85 26 122/56 96 07/01/18 04:04 07/01/18 04:04 07/01/18 04:04 07/01/18 04:04 07/01/18 04:04 Internal Med - H&P Results - Labs CBC & Chem 7: 07/01/18 03:29 07/01/18 03:29 Labs: Short CBC 07/01/18 Range/Units 03:29 WBC 16.1 H (4.3-11.1) K/mcL Hgb 11.3 L D (12.9-16.9) g/dL Hct 36.3 L (37.5-50.1) % Plt Count 340 (140-400) K/mcL Neutrophils # 15.1 H (1.6-8.9) K/mcL BMP 07/01/18 03:29 Sodium 134 L Potassium 5.1 Chloride 102 Carbon Dioxide 26 BUN 37 H Creatinine 2.20 H Glucose 194 H Calcium 9.1 - Time Spent With Patient Total time spent is greater than 50% in coordination of care (as documented) at patient's floor/unit and/or counseling patient: - Attending Attestation Patient seen and examined. Chart reviewed. Case discussed with resident. Agree with assessment and plan. Admit patient for acute hypoxic hypercapnic respiratory failure secondary to pneumonia and COPD exacerbation. Patient currently stable on BiPAP. Continue with broad-spectrum antibiotics and treatment for COPD. Follow-up blood cultures.
[2018-07-01] MEDS: Ipratropium/Albuterol Neb 3 ML IH SCH ×7 (00:27→23:26)
[2018-07-01] MEDS ORDERED: D5% in Water 1,000 ML IVC PRN (00:35)
[2018-07-01] MEDS ORDERED: Dextrose Gel 15 GM/37.5 ML TUBE PO PRN ×2 (00:35)
[2018-07-01] MEDS ORDERED: *HR* Dextrose 50 % in Water (Syg) 50 ML SYRINGE IVP PRN (00:35)
[2018-07-01 01:18] LABS: ABG Base Excess 0 mEq/L (-2 to 3); ABG HCO3 29 mEq/L (21-27); ABG Oxygen Saturation 93 % (95-98); ABG PCO2 65 mmHg (35-45); ABG PH 7.25 pH Units (7.32-7.45); ABG PO2 79 mmHg (85-104); ABG TCO2 31 mEq/L (20-26); Blood Gas Modality NIV; Blood Gas PEEP 6 cm H2O
[2018-07-01] MEDS: *HR* Heparin 5,000 UNIT/ML VIAL SQ SCH ×4 (01:18→20:32)
[2018-07-01] MEDS: 0.9 % Sodium Chloride 1,000 ML IVC SCH ×2 (01:18→11:58)
[2018-07-01 03:50] LABS: Basophils % 0.2 %; Eosinophils % 0.1 %; Hematocrit 36.3 % (37.5-50.1); Immature Granulocytes % 0.6 % (0-4); Lymphocytes # 0.4 K/mcL (0.6-4.6); Lymphocytes % 2.7 %; Mean Corpuscular HGB Conc 31.1 g/dL (31.6-35.5); Mean Corpuscular Hemoglobin 29.4 pg (28.0-33.3); Mean Corpuscular Volume 94.3 fL (83.0-100.0); Mean Platelet Volume 9.3 fL (9.4-12.4); Monocytes # 0.4 K/mcL (0.0-1.3); Monocytes % 2.7 %; Neutrophils # 15.1 K/mcL (1.6-8.9); Platelet Count 340 K/mcL (140-400); Red Blood Count 3.85 M/mcL (4.19-5.50); Red Cell Distribution Width 13.3 % (11.5-14.5); Segmented Neutrophils % 93.7 %
[2018-07-01 03:53] LABS: Hemoglobin 11.3 g/dL (12.9-16.9)
[2018-07-01 04:11] LABS: Calcium 9.1 mg/dL (8.6-10.3); Potassium 5.1 mEq/L (3.5-5.1)
[2018-07-01] MEDS: Insulin LISPRO 300 UNITS/3 ML VIAL SQ SCH ×3 (06:06→20:32)
[2018-07-01] MEDS: hydrALAZINE 25 MG TABLET PO SCH ×3 (07:48→23:57)
[2018-07-01] MEDS: MethylPREDNISolone 40 MG/ML VIAL IVP SCH ×3 (07:48→23:57)
[2018-07-01] MEDS: Aspirin Enteric Coated 81 MG Tablet PO SCH (07:48)
--- NOTE | 2018-07-01 08:56 | Electrocardiograph Report ---
[address] [address] Test Date: 2018-06-30 Pat Name: Atilio Joseph Department: EXAM4 Room: 2N04 Gender: M Oxygen Therapist: : 1955 Requested By: Unique Craig Order Number: [id number] Reading MD: Nikki Lopez Measurements Intervals [place] Rate: 109 P: 83 [place]: 136 QRS: 55 QRSD: 94 T: 61 QT: 325 QTc: 438 Interpretive Statements Sinus tachycardia Electronically Signed On 07-01-2018 8:54:39 EDT by Nikki Lopez
[2018-07-01 08:59] LABS: Adenovirus Not Detected (Not Detect); Bordetella Pertussis Not Detected (Not Detect); Chlamydophila pneumoniae Not Detected (Not Detect); Coronavirus 229E Not Detected (Not Detect); Coronavirus HKU1 Not Detected (Not Detect); Coronavirus NL63 Not Detected (Not Detect); Coronavirus OC43 Not Detected (Not Detect); Human Metapneumovirus Not Detected (Not Detect); Human Rhinovirus/Enterovirus Not Detected (Not Detect); Influenza A Subtype 2009 H1 Not Detected (Not Detect); Influenza A Untypeable Not Detected (Not Detect); Influenza B Not Detected (Not Detect); Mycoplasma pneumoniae Not Detected (Not Detect); Parainfluenza Virus 1 Not Detected (Not Detect); Parainfluenza Virus 2 Not Detected (Not Detect); Parainfluenza Virus 3 Not Detected (Not Detect); Parainfluenza Virus 4 Not Detected (Not Detect); Respiratory Syncytial Virus Not Detected (Not Detect)
--- NOTE | 2018-07-01 10:27 | Event Note ---
Date of Encounter: 07/01/18 Time of Encounter: 10:26 Patient remains on BiPAP. Feels somewhat better today. WBC count is trending down. We will continue current IV antibiotics. Renal function is slightly worse today. Will hold any nephrotoxic agents. Continue IV hydration for now. Follow renal function closely.
[2018-07-01] MEDS: Cefepime HCl 2,000 MG in Water for inj. (sterile) 20 ML 20 ML IVP SCH ×2 (12:07→23:56)
[2018-07-01] MEDS: *HR* LORazepam 0.5 MG TABLET PO SCH (20:31)
[2018-07-01] MEDS ORDERED: Vancomycin (wt based) 1,000 MG VIAL IVPB SCH (22:00)
[2018-07-02] MEDS: Ipratropium/Albuterol Neb 3 ML IH SCH ×6 (03:57→23:38)
[2018-07-02 04:18] LABS: Basophils % 0.1 %; Hematocrit 34.7 % (37.5-50.1); Hemoglobin 10.8 g/dL (12.9-16.9); Immature Granulocytes % 0.8 % (0-4); Lymphocytes # 0.7 K/mcL (0.6-4.6); Lymphocytes % 3.2 %; Mean Corpuscular HGB Conc 31.1 g/dL (31.6-35.5); Mean Platelet Volume 9.4 fL (9.4-12.4); Monocytes # 0.8 K/mcL (0.0-1.3); Neutrophils # 19.3 K/mcL (1.6-8.9); Platelet Count 415 K/mcL (140-400); Red Blood Count 3.73 M/mcL (4.19-5.50); Red Cell Distribution Width 12.8 % (11.5-14.5); Segmented Neutrophils % 91.9 %
[2018-07-02 04:40] LABS: Calcium 9.2 mg/dL (8.6-10.3); Potassium 4.7 mEq/L (3.5-5.1)
[2018-07-02] MEDS: *HR* Heparin 5,000 UNIT/ML VIAL SQ SCH ×3 (06:05→22:33)
[2018-07-02] MEDS: MethylPREDNISolone 40 MG/ML VIAL IVP SCH (08:19)
[2018-07-02] MEDS: hydrALAZINE 25 MG TABLET PO SCH ×3 (08:19→23:41)
[2018-07-02] MEDS: Aspirin Enteric Coated 81 MG Tablet PO SCH (08:20)
[2018-07-02] MEDS: Insulin LISPRO 300 UNITS/3 ML VIAL SQ SCH ×4 (08:30→20:26)
--- NOTE | 2018-07-02 10:32 | Internal Med Progress Note ---
Hospitalist Progress Note - Encounter Date of Encounter: 07/02/18 Time of Encounter: 09:30 - Subjective Interval History: Patient is sitting up in chair. On nasal cannula currently. Feels that his breathing has improved. Denies any chest pain or palpitations. Does have cough and is producing sputum. No fevers or chills reported overnight. - Exam Vitals: Temp Pulse Resp BP Pulse Ox 97.8 F 103 18 147/66 95 07/02/18 07:39 07/02/18 08:24 07/02/18 07:39 07/02/18 07:39 07/02/18 07:39 Exam: General: Patient is alert, no acute distress, oriented x 3 Respiratory: Decreased breath sounds at both bases. Greater on the right. Mild wheezing bilaterally Cardiovascular: Regular rate and rhythm. s1 and s2 normal No clicks, rubs, gallops, or murmurs. No pedal edema Abdomen: Abdomen is soft, nontender. Bowel sounds are present Musculoskeletal: Spontaneously moving all extremities Skin: warm, dry, intact. Neuro: Alert oriented x 3 normal cranial nerves, no focal deficits - Assessment and Plan (1) Acute respiratory failure with hypoxia Current Visit: Yes Status: Acute Assessment and Plan: Improving. Patient on 2 L nasal cannula at this time. This is his baseline O2 supplementation. We will continue to treat underlying COPD and pneumonia. Moderate risk for complications. (2) Acute kidney injury Current Visit: Yes Status: Acute Assessment and Plan: On chronic kidney disease stage III. Improving. Creatinine 1.88 which is his baseline. We will stop IV fluids. Avoid nephrotoxic agents. (3) COPD exacerbation Current Visit: Yes Status: Acute Assessment and Plan: Improving. We will transition to oral steroids. Continue bronchodilator treatment. Treat underlying pneumonia. (4) Pneumonia Current Visit: Yes Status: Suspected Assessment and Plan: Right lower lobe pneumonia. Cultures have been negative so far. Respiratory panel has also been negative. Will send sputum for culture. (5) Severe sepsis Current Visit: Yes Status: Acute Assessment and Plan: From pneumonia. Resolving. Continue treatment with IV antibiotics. If symptoms continue to improve, we will transition to oral antibiotics tomorrow. (6) CAD (coronary artery disease) Current Visit: Yes Status: Chronic Assessment and Plan: Continue aspirin, statin, beta barbara and lisinopril. (7) Diabetes mellitus Current Visit: Yes Status: Chronic Assessment and Plan: Blood sugars are elevated. Will add long-acting insulin. (8) HTN (hypertension) Current Visit: Yes Status: Chronic Assessment and Plan: Blood pressure elevated this morning. On labetalol, hydralazine and lisinopril. We will monitor blood pressure closely. Will adjust antihypertensive regimen if blood pressure remains persistently high DVT Prophylaxis: With subcutaneous heparin - Time Spent with Patient Total time spent is greater than 50% in coordination of care (as documented) at patient's floor/unit and/or counseling patient: Internal Medicine: Result - Labs CBC & Chem 7: 07/02/18 03:40 07/02/18 03:40 Labs: Short CBC 07/02/18 Range/Units 03:40 WBC 21.0 H (4.3-11.1) K/mcL Hgb 10.8 L (12.9-16.9) g/dL Hct 34.7 L (37.5-50.1) % Plt Count 415 H (140-400) K/mcL Neutrophils # 19.3 H (1.6-8.9) K/mcL BMP 07/02/18 03:40 Sodium 135 L Potassium 4.7 Chloride 106 Carbon Dioxide 22 L BUN 46 H Creatinine 1.88 H Glucose 176 H Calcium 9.2 - ABG Interpretation ABG results: ABG ABG pH 7.25 pH Units (7.32-7.45) L 07/01/18 01:14 ABG pCO2 65 mmHg (35-45) H 07/01/18 01:14 ABG pO2 79 mmHg (85-104) L 07/01/18 01:14 ABG O2 Saturation 93 % (95-98) L 07/01/18 01:14 PT/INR, D-dimer PT 10.5 Seconds (9.4-12.1) 06/30/18 22:53 Consult Discharge Plan - Plan Referrals: Madelaine Russell, NETWORK TECHNICAL ANALYST [Primary Care Provider] - (4) Pneumonia Qualifiers: Pneumonia type: due to methicillin-resistant Staphylococcus aureus (MRSA) Laterality: right Lung location: lower lobe of lung Qualified Code(s): J15.212 - Pneumonia due to Methicillin resistant Staphylococcus aureus (6) CAD (coronary artery disease) Qualifiers: Coronary Disease-Associated Artery/Lesion type: [place] artery [place] vs. transplanted heart: [place] heart Associated angina: without angina Qualified Code(s): I25.10 - Atherosclerotic heart disease of [place] coronary artery without angina pectoris (7) Diabetes mellitus Qualifiers: Diabetes mellitus type: type 2 Diabetes mellitus [place] insulin use: unspecified [place] insulin use status Diabetes mellitus complication status : with unspecified complications Qualified Code(s): E11.8 - Type 2 diabetes mellitus with unspecified complications (8) HTN (hypertension) Qualifiers: Hypertension type: essential hypertension Qualified Code(s): I10 - Essential (primary) hypertension
[2018-07-02] MEDS: Lisinopril 20 MG TABLET PO SCH (11:28)
[2018-07-02] MEDS: Cefepime HCl 2,000 MG in Water for inj. (sterile) 20 ML 20 ML IVP SCH ×2 (11:29→22:33)
[2018-07-02] MEDS: Insulin DETEMIR 100 UNIT/ML X5UNITS SQ SCH (11:29)
[2018-07-02] MEDS: *HR* LORazepam 0.5 MG TABLET PO SCH (20:18)
[2018-07-03] MEDS: Ipratropium/Albuterol Neb 3 ML IH SCH ×4 (04:19→15:31)
[2018-07-03] MEDS: *HR* Heparin 5,000 UNIT/ML VIAL SQ SCH ×3 (05:32→21:37)
[2018-07-03] MEDS: Insulin LISPRO 300 UNITS/3 ML VIAL SQ SCH ×4 (09:16→21:32)
[2018-07-03] MEDS: hydrALAZINE 25 MG TABLET PO SCH ×3 (09:16→23:55)
[2018-07-03] MEDS: Lisinopril 20 MG TABLET PO SCH (09:16)
[2018-07-03] MEDS: Aspirin Enteric Coated 81 MG Tablet PO SCH (09:16)
[2018-07-03] MEDS: Insulin DETEMIR 100 UNIT/ML X5UNITS SQ SCH (09:19)
[2018-07-03] MEDS: Budesonide/Formoterol 160/4.5 1 PUFF INH IH SCH ×2 (11:15→19:53)
[2018-07-03] MEDS: Cefepime HCl 2,000 MG in Water for inj. (sterile) 20 ML 20 ML IVP SCH (11:49)
--- NOTE | 2018-07-03 12:49 | Internal Med Progress Note ---
Hospitalist Progress Note - Encounter Date of Encounter: 07/03/18 Time of Encounter: 12:48 - Subjective Interval History: Patient evaluated earlier this morning. Lying down in bed. Comfortable. Shortness of breath is improving but patient has not been ambulating much yet. No fevers reported overnight. Does continue to have cough with sputum production. - Exam Vitals: Temp Pulse Resp BP Pulse Ox 97.6 F 83 18 157/74 100 07/03/18 11:26 07/03/18 11:26 07/03/18 11:26 07/03/18 11:26 07/03/18 11:26 Exam: General: Patient is alert, no acute distress, oriented x 3 Respiratory: Decreased breath sounds at both bases Cardiovascular: Regular rate and rhythm. s1 and s2 normal No clicks, rubs, gallops, or murmurs. No pedal edema Abdomen: Abdomen is soft, nontender. Bowel sounds are present Musculoskeletal: Spontaneously moving all extremities Skin: warm, dry, intact. Neuro: Alert oriented x 3 normal cranial nerves, no focal deficits - Assessment and Plan (1) Acute respiratory failure with hypoxia Current Visit: Yes Status: Acute Assessment and Plan: continue O2 supplementation. Patient currently on 3 L nasal cannula. Encouraged ambulation. He does have hypercapnia. We will do overnight BiPAP qualification to see if patient would benefit from BiPAP use. (2) Acute kidney injury Current Visit: Yes Status: Acute Assessment and Plan: Improved. Will monitor renal function. Patient states lisinopril dosage has been increased to 20 mg to control his blood pressure better. (3) COPD exacerbation Current Visit: Yes Status: Acute Assessment and Plan: Continue oral steroids. We will begin to taper. We will also continue bronchodilator treatments (4) Pneumonia Current Visit: Yes Status: Suspected Assessment and Plan: Sputum culture growing gram-positive cocci and gram-negative rods. We will await final culture results. We will begin to de-escalate antibiotics to oral as blood cultures have been negative. (5) Severe sepsis Current Visit: Yes Status: Resolved Assessment and Plan: Sepsis has now resolved. Blood cultures have been negative. (6) CAD (coronary artery disease) Current Visit: Yes Status: Chronic Assessment and Plan: Continue aspirin, statin, Lasix and beta barbara (7) Diabetes mellitus Current Visit: Yes Status: Chronic Assessment and Plan: Blood sugars were better controlled this morning but has since risen up. Will increase sliding scale regimen. (8) HTN (hypertension) Current Visit: Yes Status: Chronic Assessment and Plan: Blood pressure elevated at this time. We will continue current medication regimen as lisinopril dosage has just been increased. If persistently elevated , will increase beta barbara dosage. DVT Prophylaxis: On subcutaneous heparin - Time Spent with Patient Total time spent is greater than 50% in coordination of care (as documented) at patient's floor/unit and/or counseling patient: Internal Medicine: Result - Labs CBC & Chem 7: 07/02/18 03:40 07/02/18 03:40 - ABG Interpretation ABG results: ABG ABG pH 7.25 pH Units (7.32-7.45) L 07/01/18 01:14 ABG pCO2 65 mmHg (35-45) H 07/01/18 01:14 ABG pO2 79 mmHg (85-104) L 07/01/18 01:14 ABG O2 Saturation 93 % (95-98) L 07/01/18 01:14 PT/INR, D-dimer PT 10.5 Seconds (9.4-12.1) 06/30/18 22:53 Consult Discharge Plan - Plan Referrals: Madelaine Russell [facility] [Primary Care Provider] - 07/10/18 10:00 am (4) Pneumonia Qualifiers: Pneumonia type: due to unspecified organism Laterality: right Lung location : lower lobe of lung Qualified Code(s): J18.1 - Lobar pneumonia, unspecified organism (6) CAD (coronary artery disease) Qualifiers: Coronary Disease-Associated Artery/Lesion type: [place] artery [place] vs. transplanted heart: [place] heart Associated angina: without angina Qualified Code(s): I25.10 - Atherosclerotic heart disease of [place] coronary artery without angina pectoris (7) Diabetes mellitus Qualifiers: Diabetes mellitus type: type 2 Diabetes mellitus skilled nursing insulin use: unspecified salvage determiner insulin use status Diabetes mellitus complication status : with unspecified complications Qualified Code(s): E11.8 - Type 2 diabetes mellitus with unspecified complications (8) HTN (hypertension) Qualifiers: Hypertension type: essential hypertension Qualified Code(s): I10 - Essential (primary) hypertension
[2018-07-03] MEDS ORDERED: Aminoglycoside Consult 1 EACH MC ONE (13:38)
[2018-07-03] MEDS ORDERED: *HR* Adenosine 6 MG/2 ML VIAL IVP ONE ×4 (13:55→17:22)
[2018-07-03] MEDS: *HR* Adenosine 6 MG/2 ML VIAL IVP ONE ×3 (14:00→17:35)
--- NOTE | 2018-07-03 14:42 | Event Note ---
Date of Encounter: 07/03/18 Time of Encounter: 13:50 Call my nurse stating that the patient was in SVT. MRI of the patient's bedside to see that he was in SVT with heart rate of 1 80/m. Patient was asymptomatic. Tried vagal maneuvers and carotid sinus pressure. Heart rate did not improve. He was then given 6 mg of adenosine which aborted the SVT and his heart rate improved to the 90s to 100s per minute. Patient denies any shortness of breath or chest pain. We will continue to monitor with telemetry. We will stop dual nebs. Place patient on Xopenex as needed every 6 hours instead.
[2018-07-03] MEDS ORDERED: predniSONE 20 MG TABLET PO SCH (16:00)
[2018-07-03] MEDS ORDERED: *HR* Metoprolol 5 MG/5 ML VIAL IVP ONE ×3 (17:04→17:24)
[2018-07-03] MEDS ORDERED: Levalbuterol Neb 0.63 MG/3 ML IH PRN (17:12)
[2018-07-03] MEDS ORDERED: 0.9 % Sodium Chloride 1,000 ML IVC ONE (17:22)
--- NOTE | 2018-07-03 18:05 | Event Note ---
Date of Encounter: 07/03/18 Time of Encounter: 18:04 Patient went into SVT again and required total of 18 mg of adenosine to convert. He also received 5 mg of IV Lopressor. Discussed with cardiology. Increase labetalol to 200 mg twice a day. Will give additional 5 mg of IV Lopressor for now and monitor with telemetry. Also give IV fluids bolus.
[2018-07-03] MEDS ORDERED: Doxycycline 100 MG CAPSULE PO SCH (21:00)
[2018-07-03] MEDS ORDERED: Melatonin 3 MG TABLET PO SCH (21:00)
[2018-07-03] MEDS ORDERED: Lactobacillus 1 EACH CAP.SPRINK PO SCH (21:00)
[2018-07-03] MEDS ORDERED: Cefdinir 300 MG CAPSULE PO SCH (21:00)
[2018-07-03] MEDS: *HR* LORazepam 0.5 MG TABLET PO SCH (21:36)
[2018-07-04] MEDS: Budesonide/Formoterol 160/4.5 1 PUFF INH IH SCH (07:32)
[2018-07-04 11:30] LABS: Basophils % 0.3 %; Hematocrit 33.7 % (37.5-50.1); Hemoglobin 10.9 g/dL (12.9-16.9); Immature Granulocytes % 2.1 % (0-4); Immature Platelets 2.1 % (1.1-6.1); Lymphocytes # 1.3 K/mcL (0.6-4.6); Lymphocytes % 8.4 %; Mean Corpuscular HGB Conc 32.3 g/dL (31.6-35.5); Mean Corpuscular Hemoglobin 29.3 pg (28.0-33.3); Mean Corpuscular Volume 90.6 fL (83.0-100.0); Mean Platelet Volume 9.4 fL (9.4-12.4); Monocytes # 0.6 K/mcL (0.0-1.3); Monocytes % 3.9 %; Neutrophils # 12.8 K/mcL (1.6-8.9); Platelet Count 482 K/mcL (140-400); Red Blood Count 3.72 M/mcL (4.19-5.50); Red Cell Distribution Width 12.5 % (11.5-14.5); Segmented Neutrophils % 85.3 %
--- NOTE | 2018-07-04 11:58 | Discharge Summary ---
- NOTES TO OUTPATIENT PROVIDER Notes to Outpatient Provider: Patient with a history of COPD he was hospitalized here with pneumonia, COPD and sepsis. Patient was started on treatment for this with IV antibiotics. He also received bronchodilators and steroids. His symptoms have slowly improved. Patient is now feeling close to his baseline. He did have an recurrent episodes of SVT yesterday which were aborted with adenosine. Discussed with cardiology. Recommend outpatient follow-up and increasing beta barbara dosage. Echocardiogram done and shows patient has an EF of 50-55%. Will arrange for outpatient cardiology follow-up. Patient will be discharged today on oral antibiotics targeting gram-negative bacteria. Orders not resulted at time of discharge: Pending orders 06/30/18 22:52 Culture,Blood [BC] Stat 07/02/18 11:25 Sputum Culture [Culture,Sputum with Gram Stain] [RM] Stat 07/03/18 17:06 EKG [ECG 12 lead ECG] [ECG] Stat 07/04/18 04:00 Basic Metabolic Panel AM 0400 Complete Blood Count [HEME] AM 0400 Date of Encounter: 07/04/18 Time of Encounter: 12:00 - Discharge Diagnosis (1) Acute respiratory failure with hypoxia Priority: Primary Status: Acute (2) Acute kidney injury Priority: Secondary Status: Acute (3) COPD exacerbation Priority: Secondary Status: Acute (4) Pneumonia Priority: Secondary Status: Acute Qualifiers: Pneumonia type: due to other aerobic Gram-negative bacteria Laterality: right Lung location: lower lobe of lung Qualified Code(s): J15.6 - Pneumonia due to other Gram-negative bacteria (5) Severe sepsis Priority: Secondary Status: Resolved (6) CAD (coronary artery disease) Priority: Secondary Status: Chronic Qualifiers: Coronary Disease-Associated Artery/Lesion type: [place] artery [place] vs. transplanted heart: [place] heart Associated angina: without angina Qualified Code(s): I25.10 - Atherosclerotic heart disease of [place] coronary artery without angina pectoris (7) Diabetes mellitus Priority: Secondary Status: Chronic Qualifiers: Diabetes mellitus type: type 2 Diabetes mellitus manager terminal insulin use: un specified fci insulin use status Diabetes mellitus complication status: with unspecified complications Qualified Code(s): E11.8 - Type 2 diabetes mellitus with unspecified complications (8) HTN (hypertension) Priority: Secondary Status: Chronic Qualifiers: Hypertension type: essential hypertension Qualified Code(s): I10 - Essential (primary) hypertension (9) Supraventricular tachycardia Priority: Secondary Status: Acute Hospital course: Mr. Joseph is a 62 year old male Patient with a history of COPD who was hospitalized here with pneumonia, COPD exacerbation and sepsis. Patient was started on treatment for this with IV antibiotics. He also received bronchodilators and steroids. His symptoms have slowly improved. Patient is now feeling close to his baseline. He did have recurrent episodes of SVT yesterday which were aborted with adenosine. Discussed with cardiology. Recommend outpatient follow-up and increasing beta barbara dosage. Echocardiogram done and shows patient has an EF of 50-55%. Will arrange for outpatient cardiology follow-up. Patient will be discharged today on oral antib iotics targeting gram-negative bacteria. Discharge discussed with: patient, nurse - Time Spent with Patient Total time spent providing and/or coordinating discharge services: Greater than 30 minutes (32 min) - Discharge Medications Prescriptions: RX: Labetalol [Trandate] 200 mg PO BID #60 tablet RX: Lactobacillus [Culturelle] 1 each PO BID #20 cap.sprink RX: levoFLOXacin [Levofloxacin] 750 mg PO DAILY #7 tablet RX: Lisinopril [Zestril] 20 mg PO DAILY #30 tablet RX: predniSONE [PredniSONE] 10 mg PO DAILY #10 tablet Home Medications: RX: Albuterol Sulfate [Ventolin Hfa] 2 puff IH Q4H PRN 03/17/17 [History] RX: Aspirin [Lo-Dose Aspirin EC] 81 mg PO DAILY 03/29/17 [History] RX: Clopidogrel [Plavix] 75 mg PO DAILY 03/29/17 [History] RX: Metformin HCl [Metformin HCl ER] 500 mg PO BID 03/29/17 [History] RX: Fluticasone/Salmeterol [Advair Hfa 230-21 Mcg Inhaler] 2 puff IH BID #1 hfa.aer.ad 10/21/17 [Rx] RX: hydrALAZINE [HydrALAZINE] 25 mg PO Q8HR #90 tablet 10/21/17 [Rx] RX: Furosemide [Lasix] 40 mg PO DAILY 06/30/18 [History] RX: Albuterol Neb [Proventil Neb] 2.5 mg IH Q8H PRN 07/01/18 [History] RX: Atorvastatin [Lipitor] 20 mg PO HS 07/01/18 [History] RX: Docusate [Colace] 100 mg PO DAILY PRN 07/01/18 [History] RX: LORazepam [Ativan] 1 mg PO HS 07/01/18 [History] RX: Melatonin 10 mg PO HS 07/01/18 [History] RX: Tiotropium Br/Olodaterol HCl [Stiolto Respimat Inhal [place]] 2 puff IH DAILY 07/01/18 [History] RX: Labetalol [Trandate] 200 mg PO BID #60 tablet 07/04/18 [Rx] RX: Lactobacillus [Culturelle] 1 each PO BID #20 cap.sprink 07/04/18 [Rx] RX: Lisinopril [Zestril] 20 mg PO DAILY #30 tablet 07/04/18 [Rx] RX: Multivitamin [One Daily Essential] 1 each PO DAILY #0 07/04/18 [Rx] RX: levoFLOXacin [Levofloxacin] 750 mg PO DAILY #7 tablet 07/04/18 [Rx] RX: predniSONE [PredniSONE] 10 mg PO DAILY #10 tablet 07/04/18 [Rx] Allergies/Adverse Reactions: Allergy/AdvReac Type Severity Reaction Status Date / Time Penicillins Allergy Hives Verified 07/01/18 12:14 Sulfa (Sulfonamide Allergy Hives Verified 07/01/18 12:14 Antibiotics) Date of admission: 07/01/18 01:40 Primary care physician: Madelaine Russell CNP Consults: 07/03/18 17:28 Consult to Cardiology [CONS] Routine Comment: Consulting Provider: Cardiology Charisse Reason for Consult: SVT Time Notified: 17:29 Call Completed: Yes Discharging clinician: Rashad Sequeira Anticipated date of discharge: 07/04/18 - Constitutional Vitals: Temp Pulse Resp BP Pulse Ox 98.7 F 77 18 152/74 97 07/03/18 23:21 07/03/18 23:21 07/03/18 23:21 07/03/18 23:21 07/03/18 23:21 General appearance: Present: cooperative, mild distress, A&O X 3, pleasant, answers questions appropriately Exam: General: Patient is alert, no acute distress, oriented x 3 Respiratory: Mild Bilateral wheezing Cardiovascular: Regular rate and rhythm. s1 and s2 normal No clicks, rubs, gallops, or murmurs. No pedal edema Abdomen: Abdomen is soft, nontender. Bowel sounds are present Musculoskeletal: Spontaneously moving all extremities Skin: warm, dry, intact. Neuro: Alert oriented x 3 normal cranial nerves, no focal deficits - Patient Status Disposition: Home, Self-Care Condition: Good Functional capacity at discharge: independent ambulation Overall status at discharge: patient is progressing back to baseline - Discharge Instructions Instructions: Acute Respiratory Distress Syndrome (DC), Diabetes Mellitus Type 2 in Adults (DC), Chronic Obstructive Pulmonary Disease (DC), Sepsis (DC), Pneumonia (DC) Follow Up With: Madelaine Russell CNP [Primary Care Provider] - 07/10/18 10:00 am Ankit Cassidy MD [Partnered Physician] - (in 1 week for SVT) Forms: ED Satisfaction Letter - Diet and Activity Activity: increase activity as tolerated, wear oxygen at all times Diet: diabetic diet, low fat, low cholesterol, low salt diet
[2018-07-04 12:19] VITALS: BP 176/81
[2018-07-04 12:22] LABS: Calcium 9.1 mg/dL (8.6-10.3)
[2018-07-04] MEDS: Insulin LISPRO 300 UNITS/3 ML VIAL SQ SCH (13:01)
[2018-07-04] MEDS ORDERED: Aspirin Enteric Coated 81 MG Tablet PO ONE (13:38)
[2018-07-04] MEDS ORDERED: *HR* Heparin 5,000 UNIT/ML VIAL IVP ONE (13:38)
[2018-07-04] MEDS ORDERED: predniSONE 20 MG TABLET PO ONE (13:38)
[2018-07-04] MEDS ORDERED: Lisinopril 20 MG TABLET PO ONE (13:38)
[2018-07-04] MEDS ORDERED: Doxycycline 100 MG CAPSULE PO ONE (13:38)
[2018-07-04] MEDS ORDERED: Lactobacillus 1 EACH CAP.SPRINK PO ONE (13:38)
[2018-07-04] MEDS ORDERED: Cefdinir 300 MG CAPSULE PO ONE (13:38)
[2018-07-04] MEDS ORDERED: hydrALAZINE 25 MG TABLET PO ONE (13:38)
--- NOTE | 2018-07-04 13:47 | Electrocardiograph Report ---
[place] [id number] Test Date: 2018-07-03 Pat Name: Atilio Joseph Department: 110 Room: 2N04 Gender: M Toby Maker: NINA : 1955 Requested By: Rashad Sequeira Order Number: [id number] Reading MD: Nikki Lopez Measurements Intervals [place] Rate: 182 P: DE: 0 QRS: 43 QRSD: 85 T: -73 QT: 237 QTc: 333 Interpretive Statements SUPRAVENTRICULAR TACHYCARDIA NONSPECIFIC ST & T-WAVE ABNORMALITY Electronically Signed On 07-04-2018 13:45:35 EDT by Nikki Lopez
--- NOTE | 2018-07-05 08:23 | Event Note ---
Date of Encounter: 07/05/18 Time of Encounter: 08:22 Patient's sputum culture is growing Pseudomonas. Patient received cefepime here and will complete oral course with Levaquin for 7 days.
== END 2018-07-04 13:39 | disposition home or self-care (01) | DRG 871 ==
LOC: 2NNU 22:14 → EMEROOARM 22:14 → 2NNU 23:38 → SUATTDRO 07-01 01:40
PROVIDERS: ADMIT Internal Medicine; ATTEND Internal Medicine

== ENCOUNTER 2018-08-04 05:35 | Inpatient (IN) ==
[2018-08-04] MEDS ORDERED: Ipratropium/Albuterol Neb 3 ML IH ONE ×2 (05:39→07:33)
[2018-08-04] MEDS ORDERED: methylPREDNISolone 125 MG/2 ML VIAL IVP ONE (05:39)
--- NOTE | 2018-08-04 05:40 | Emergency Department Note ---
Disposition Clinical Impression: COPD exacerbation, Hypoxia Respiratory failure Qualifiers: Chronicity: unspecified Respiratory failure complication: hypoxia and hyperc apnia Qualified Code(s): J96.91 - Respiratory failure, unspecified with hypoxia Disposition: Still a Patient Condition: Fair Referrals: Madelaine Russell CNP [Primary Care Provider] - Forms: ED Satisfaction Letter Time of Disposition: 06:46 General Adult HPI - General Chief complaint: ED Shortness of Breath/Dyspnea Stated complaint: "PATEL" Time Seen by Provider: 08/04/18 05:38 Source: patient Mode of arrival: wheelchair Limitations: no limitations Nursing Notes Reviewed: Yes Vital Signs Reviewed: Yes - History of Present Illness HPI Narrative: Patient is a 62-year-old male with past medical history of COPD, CHF, diabetes, CAD, previous MO. He presents today due to concern for respiratory distress. Patient states that he has been short of breath the entire day, progressively worsening. He also has some mild chest tightness. Usually wears oxygen at [facility]. Unable to tell me how many liters he usually wears. He presented today by private vehicle, was in distress on presentation and found to be hypoxic upon tree eyes with an O2 saturation in the 60s. Patient was emergently brought back to the critical care room. He is currently complaining of shortness of breath, chest discomfort. Denies any other nausea, vomiting, fevers, diarrhea, abdominal pain. Not currently on any antibiotics or steroids. He did have a recent hospitalization in June for respiratory distress, pneumonia, hypoxia. - Related Data Home Medications Medication Instructions Recorded Confirmed Albuterol Sulfate [Ventolin Hfa] 2 puff IH Q4H PRN 03/17/17 07/01/18 Aspirin [Lo-Dose Aspirin EC] 81 mg PO DAILY 03/29/17 07/01/18 Clopidogrel [Plavix] 75 mg PO DAILY 03/29/17 07/01/18 Metformin HCl [Metformin HCl ER] 500 mg PO BID 03/29/17 07/01/18 Furosemide [Lasix] 40 mg PO DAILY 06/30/18 07/01/18 Albuterol Neb [Proventil Neb] 2.5 mg IH Q8H PRN 07/01/18 07/01/18 Atorvastatin [Lipitor] 20 mg PO HS 07/01/18 07/01/18 Docusate [Colace] 100 mg PO DAILY PRN 07/01/18 07/01/18 LORazepam [Ativan] 1 mg PO HS 07/01/18 07/01/18 Melatonin 10 mg PO HS 07/01/18 07/01/18 Tiotropium Br/Olodaterol HCl 2 puff IH DAILY 07/01/18 07/01/18 [Stiolto Respimat Inhal [place]] Previous Rx's Medication Instructions Recorded Fluticasone/Salmeterol [Advair Hfa 2 puff IH BID #1 hfa.aer.ad 10/21/17 230-21 Mcg Inhaler] hydrALAZINE [HydrALAZINE] 25 mg PO Q8HR #90 tablet 10/21/17 Labetalol [Trandate] 200 mg PO BID #60 tablet 07/04/18 Lactobacillus [Culturelle] 1 each PO BID #20 cap.sprink 07/04/18 Lisinopril [Zestril] 20 mg PO DAILY #30 tablet 07/04/18 Multivitamin [One Daily Essential] 1 each PO DAILY #0 07/04/18 levoFLOXacin [Levofloxacin] 750 mg PO DAILY #7 tablet 07/04/18 predniSONE [PredniSONE] 10 mg PO DAILY #10 tablet 07/04/18 Allergies Allergy/AdvReac Type Severity Reaction Status Date / Time Penicillins Allergy Hives Verified 07/01/18 12:14 Sulfa (Sulfonamide Allergy Hives Verified 07/01/18 12:14 Antibiotics) All systems ED: reviewed and negative except as stated. Constitutional: Denies: fever Cardiovascular: Reports: chest pain Respiratory: Reports: cough, dyspnea, wheezes Gastrointestinal: Denies: abdominal pain, nausea, vomiting, diarrhea Genitourinary: Denies: urgency, dysuria, frequency, hematuria, discharge Neurological: Denies: headache, weakness, numbness, paresthesias Past Medical History - Past Medical History Attestation: Yes The following information was validated with the patient. Source: patient Medical history: Reports: diabetes, myocardial infarction, hypertension, coronary artery disease, COPD Surgical history: Reports: other Psychiatric history: Reports: anxiety - Social History Smoking Status: Current every day smoker Smokeless Tobacco Status: No Alcohol use: Reports: none Drug use: Reports: none Physical Exam - General Limitations: no limitations General appearance: alert, in distress - Head Head exam: atraumatic, normocephalic, normal inspection - Eye Eye exam: Present: normal appearance, PERRL, EOMI - ENT ENT exam: normal exam, normal oropharynx, mucous membranes moist - Neck Neck exam: Present: normal inspection, full ROM, trachea midline - Chest Chest inspection: Present: normal inspection, symmetric chest wall rise - Respiratory Respiratory exam: Present: respiratory distress (Moderate to severe), other (Decreased aeration throughout with wheezing, accessory muscle use, tachypnea, belly breathing, significant increase in work of breathing) - Cardiovascular Cardiovascular exam: Present: normal rhythm, tachycardia, normal heart sounds - Abdominal Exam Abdominal exam: Present: soft, Non-Tender. Absent: tenderness, distention, guarding, rebound, rigidity - Extremities Exam Extremities exam: Present: normal inspection, full ROM. Absent: tenderness, pedal edema - Neurological Exam Neurological exam: Present: alert, oriented X3 - Psychiatric Psychiatric exam: Present: anxious - Skin Skin exam: Present: warm, dry, intact, normal color Course Course Narrative: Patient initially hypoxic in the 60s on presentation. Patient was placed on a nonrebreather and To 90%. He has significant increased work of breathing. Respiratory therapy was called immediately upon arrival for BiPAP therapy. We will give the patient DuoNeb 3, Solu-Medrol, perform EKG, chest x-ray, basic blood work, troponin. We will also obtain ABG. Patient denies any previous history of requiring intubation. However, did discuss that the patient filled BiPAP treatment that this may be necessary. He was agreeable with this plan. 06:44 labs show significant elevation white blood cell count. VBG shows acidosis and CO2 level in the 90s. Troponin negative. Currently waiting on chest x-ray. Troponin negative. We went ahead and cover the patient with Levaquin for COPD exacerbation. If chest x-ray is positive for pneumonia, and may need to broaden coverage due to recent hospital stay. Blood cultures have been ordered. We will sign the patient out to day team, Dr. Weems and Dr. Chou for further care and disposition. Vital Signs Temperature 97.6 F 08/04/18 05:38 Pulse Rate 112 08/04/18 05:38 Respiratory Rate 40 08/04/18 05:38 Blood Pressure 202/67 08/04/18 05:38 O2 Sat by Pulse Oximetry 90 08/04/18 05:38 Temperature 97.6 F 08/04/18 05:38 Pulse Rate 104 08/04/18 06:25 Respiratory Rate 32 08/04/18 06:25 Blood Pressure 163/71 08/04/18 06:25 O2 Sat by Pulse Oximetry 100 08/04/18 06:25 Oxygen Delivery Oxygen Delivery Bipap Medical Decision Making - MDM Narrative Medical decision making narrative: Patient initially hypoxic in the 60s on presentation. Patient was placed on a nonrebreather and To 90%. He has significant increased work of breathing. Resp iratory therapy was called immediately upon arrival for BiPAP therapy. We will give the patient DuoNeb 3, Solu-Medrol, perform EKG, chest x-ray, basic blood work, troponin. We will also obtain ABG. Patient denies any previous history of requiring intubation. However, did discuss that the patient filled BiPAP treatment that this may be necessary. He was agreeable with this plan. 06:44 labs show significant elevation white blood cell count. VBG shows acidosis and CO2 level in the 90s. Troponin negative. Currently waiting on chest x-ray. Troponin negative. We went ahead and cover the patient with Levaquin for COPD exacerbation. If chest x-ray is positive for pneumonia, and may need to broaden coverage due to recent hospital stay. Blood cultures have been ordered. We will sign the patient out to day team, Dr. Weems and Dr. Chou for further care and disposition. - Medical Records Medical records reviewed: Yes I reviewed the patient's medical records. - Lab Data Lab results reviewed: Yes I reviewed the patient's lab results. Result diagrams: 08/04/18 05:50 08/04/18 05:50 Lab Results 08/04/18 08/04/18 08/04/18 Range/Units 05:50 05:50 05:50 WBC 23.3 H D (4.3-11.1) K/mcL RBC 4.65 (4.19-5.50) M/mcL Hgb 13.3 (12.9-16.9) g/dL Hct 43.1 (37.5-50.1) % MCV 92.7 (83.0-100.0) fL MCH 28.6 (28.0-33.3) pg MCHC 30.9 L (31.6-35.5) g/dL RDW 13.9 (11.5-14.5) % Plt Count 372 (140-400) K/mcL MPV 9.2 L (9.4-12.4) fL Immature Gran % 1.0 (0-4) % Seg Neutrophils % 87.3 % Lymphocytes % 4.8 % Monocytes % 5.5 % Eosinophils % 1.1 % Basophils % 0.3 % Neutrophils # 20.3 H (1.6-8.9) K/mcL Lymphocytes # 1.1 (0.6-4.6) K/mcL Monocytes # 1.3 (0.0-1.3) K/mcL Eosinophils # 0.3 (0.0-0.6) K/mcL Basophils # 0.1 (0.0-0.2) K/mcL Sample Site ABG pH (7.32-7.45) pH Units ABG pCO2 (35-45) mmHg ABG pO2 (85-104) mmHg ABG HCO3 (21-27) mEq/L ABG Total CO2 (20-26) mEq/L ABG O2 Saturation (95-98) % ABG Base Excess (-2 to 3) mEq/L [place] Test O2 Delivery Device Inspired O2 (1-15=lpm [id number]=%) Sodium 138 (136-145) mEq/L Potassium 4.1 (3.5-5.1) mEq/L Chloride 95 L (98-107) mEq/L Carbon Dioxide 32 H (23-29) mEq/L BUN 26 H (8-23) mg/dL Creatinine 1.87 H (0.70-1.30) mg/dL Est GFR ( Amer) 45 L (> 60) Est GFR (Non-Af Amer) 37 L (> 60) BUN/Creatinine Ratio 14 (6-26) Glucose 229 H (70-105) mg/dL Calculated Osmolality 298 (280-300) Lactic Acid 1.2 (0.5-2.2) mmol/L Calcium 9.6 (8.6-10.3) mg/dL Troponin I < 0.03 (< 0.04) ng/mL B-Natriuretic Peptide (Less than 100) pg/mL 08/04/18 08/04/18 Range/Units 05:50 05:56 WBC (4.3-11.1) K/mcL RBC (4.19-5.50) M/mcL Hgb (12.9-16.9) g/dL Hct (37.5-50.1) % MCV (83.0-100.0) fL MCH (28.0-33.3) pg MCHC (31.6-35.5) g/dL RDW (11.5-14.5) % Plt Count (140-400) K/mcL MPV (9.4-12.4) fL Immature Gran % (0-4) % Seg Neutrophils % % Lymphocytes % % Monocytes % % Eosinophils % % Basophils % % Neutrophils # (1.6-8.9) K/mcL Lymphocytes # (0.6-4.6) K/mcL Monocytes # (0.0-1.3) K/mcL Eosinophils # (0.0-0.6) K/mcL Basophils # (0.0-0.2) K/mcL Sample Site L Radial ABG pH 7.25 L (7.32-7.45) pH Units ABG pCO2 93 H* (35-45) mmHg ABG pO2 115 H (85-104) mmHg ABG HCO3 41 H (21-27) mEq/L ABG Total CO2 44 H (20-26) mEq/L ABG O2 Saturation 97 (95-98) % ABG Base Excess 9 H (-2 to 3) mEq/L [place] Test Positive O2 Delivery Device NRB Inspired O2 15.0 (1-15=lpm [id number]=%) Sodium (136-145) mEq/L Potassium (3.5-5.1) mEq/L Chloride (98-107) mEq/L Carbon Dioxide (23-29) mEq/L BUN (8-23) mg/dL Creatinine (0.70-1.30) mg/dL Est GFR ( Amer) (> 60) Est GFR (Non-Af Amer) (> 60) BUN/Creatinine Ratio (6-26) Glucose (70-105) mg/dL Calculated Osmolality (280-300) Lactic Acid (0.5-2.2) mmol/L Calcium (8.6-10.3) mg/dL Troponin I (< 0.04) ng/mL B-Natriuretic Peptide 82 (Less than 100) pg/mL - Radiology Data Radiology results reviewed: Yes I reviewed the patient's radiology results. - EKG Data EKG #1 EKG attestation: Yes I reviewed and interpreted this EKG. EKG results narrative: 08/04/2018 at 05:48. Sinus tachycardia. Heart rate 111. HI 155. QRS 89. QTc 445. No acute ST elevation or depression. S.B.A.R. - S.B.A.R. Situation: Demographics, MOA Background: Presenting Complaint, Relevant PMH, Meds, & Allergies Assessment: Vital Signs, Course and respsone to treatment, Exam Concerns, Patient/Family Expectation, Pertinant Lab Results Recommendation: Barrier(s) to disposition, Recommendation based on pending studies, treatments, or consults S.B.A.R. Report Given to: Dr. Chou, Dr. Weems Attestation Statement - Attestation Attestation: Resident Attestation: I examined this patient and my medical decision making was reviewed with the Resident Physician. I agree with the documented findings, disposition and treatment plan as described except to the extent set forth below. We independently had [id number] contact with the patient. Pt seen with Resident Physician Dr. Rob. Please see resident note for further details and disposition. Patient presents to triage for respiratory distress. Started 2 days ago worsening in nature. Patient 68% on 5 L nasal cannula from home oxygen. He should has diffuse wheezing and overall decreased lung sounds. Patient transferred to bed. Placed on nonrebreather. Respiratory notified to come to bedside. Breathing treatments, steroids, BiPAP. Blood work, EKG, chest x-ray have been ordered. Patient did describe chest pain associated with his respiratory distress. Patient with conversational dyspnea. Able to speak in two word sentences. Diffuse wheezing and decreased aeration bilaterally. Patient significantly improved with BiPAP and breathing treatments. Chest x-ray is still pending. Levaquin has been given for antibiotic coverage.
[2018-08-04 06:01] LABS: ABG Base Excess 9 mEq/L (-2 to 3); ABG HCO3 41 mEq/L (21-27); ABG Oxygen Saturation 97 % (95-98); ABG PCO2 93 mmHg (35-45); ABG PH 7.25 pH Units (7.32-7.45); ABG PO2 115 mmHg (85-104); ABG TCO2 44 mEq/L (20-26)
[2018-08-04 06:05] LABS: Basophils # 0.1 K/mcL (0.0-0.2); Basophils % 0.3 %; Eosinophils # 0.3 K/mcL (0.0-0.6); Eosinophils % 1.1 %; Hematocrit 43.1 % (37.5-50.1); Hemoglobin 13.3 g/dL (12.9-16.9); Lymphocytes # 1.1 K/mcL (0.6-4.6); Lymphocytes % 4.8 %; Mean Corpuscular HGB Conc 30.9 g/dL (31.6-35.5); Mean Corpuscular Hemoglobin 28.6 pg (28.0-33.3); Mean Corpuscular Volume 92.7 fL (83.0-100.0); Mean Platelet Volume 9.2 fL (9.4-12.4); Monocytes # 1.3 K/mcL (0.0-1.3); Monocytes % 5.5 %; Neutrophils # 20.3 K/mcL (1.6-8.9); Platelet Count 372 K/mcL (140-400); Red Blood Count 4.65 M/mcL (4.19-5.50); Red Cell Distribution Width 13.9 % (11.5-14.5); Segmented Neutrophils % 87.3 %
[2018-08-04 06:26] LABS: Troponin I < 0.03 ng/mL (< 0.04)
[2018-08-04 06:27] LABS: BUN/Creatinine Ratio 14 (6-26); Blood Urea Nitrogen 26 mg/dL (8-23); Calcium 9.6 mg/dL (8.6-10.3); Carbon Dioxide 32 mEq/L (23-29); Chloride 95 mEq/L (98-107); Glucose 229 mg/dL (70-105); Osmolality,Calculated 298 (280-300); Potassium 4.1 mEq/L (3.5-5.1); Sodium 138 mEq/L (136-145); eGFR For Non-African Americans 37 (> 60)
[2018-08-04] MEDS ORDERED: Levofloxacin 750 MG/150 ML 750 MG/150 ML BAG IVPB ONE (06:33)
--- NOTE | 2018-08-04 07:21 | Emergency Department Note ---
Disposition Clinical Impression: COPD exacerbation, Hypoxia Respiratory failure Qualifiers: Chronicity: unspecified Respiratory failure complication: hypoxia and hyperc apnia Qualified Code(s): J96.91 - Respiratory failure, unspecified with hypoxia Disposition: Admitted As Inpatient Condition: Fair Referrals: Madelaine Russell CNP [Primary Care Provider] - Forms: ED Satisfaction Letter Time of Disposition: 08:29 SOB HPI - General Chief Complaint: ED Shortness of Breath/Dyspnea Stated Complaint: "PATEL" Time Seen by Provider: 08/04/18 05:38 Source: patient Mode of arrival: wheelchair Limitations: no limitations Nursing Notes Reviewed: Yes Vital Signs Reviewed: Yes - History of Present Illness Patient was signed out to me by nighttime physicians Dr. Rob and Dr. Rodriguez pending repeat ABG and final disposition. Please see their note for further details. - Related Data Home Medications Medication Instructions Recorded Confirmed Albuterol Sulfate [Ventolin Hfa] 2 puff IH Q4H PRN 03/17/17 07/01/18 Aspirin [Lo-Dose Aspirin EC] 81 mg PO DAILY 03/29/17 07/01/18 Clopidogrel [Plavix] 75 mg PO DAILY 03/29/17 07/01/18 Metformin HCl [Metformin HCl ER] 500 mg PO BID 03/29/17 07/01/18 Furosemide [Lasix] 40 mg PO DAILY 06/30/18 07/01/18 Albuterol Neb [Proventil Neb] 2.5 mg IH Q8H PRN 07/01/18 07/01/18 Atorvastatin [Lipitor] 20 mg PO HS 07/01/18 07/01/18 Docusate [Colace] 100 mg PO DAILY PRN 07/01/18 07/01/18 LORazepam [Ativan] 1 mg PO HS 07/01/18 07/01/18 Melatonin 10 mg PO HS 07/01/18 07/01/18 Tiotropium Br/Olodaterol HCl 2 puff IH DAILY 07/01/18 07/01/18 [Stiolto Respimat Inhal [place]] Previous Rx's Medication Instructions Recorded Fluticasone/Salmeterol [Advair Hfa 2 puff IH BID #1 hfa.aer.ad 10/21/17 230-21 Mcg Inhaler] hydrALAZINE [HydrALAZINE] 25 mg PO Q8HR #90 tablet 10/21/17 Labetalol [Trandate] 200 mg PO BID #60 tablet 07/04/18 Lactobacillus [Culturelle] 1 each PO BID #20 cap.sprink 07/04/18 Lisinopril [Zestril] 20 mg PO DAILY #30 tablet 07/04/18 Multivitamin [One Daily Essential] 1 each PO DAILY #0 07/04/18 levoFLOXacin [Levofloxacin] 750 mg PO DAILY #7 tablet 07/04/18 predniSONE [PredniSONE] 10 mg PO DAILY #10 tablet 07/04/18 Allergies Allergy/AdvReac Type Severity Reaction Status Date / Time Penicillins Allergy Hives Verified 07/01/18 12:14 Sulfa (Sulfonamide Allergy Hives Verified 07/01/18 12:14 Antibiotics) All systems ED: reviewed and negative except as stated. Constitutional: Denies: fever Cardiovascular: Reports: chest pain Respiratory: Reports: cough, dyspnea, wheezes Gastrointestinal: Denies: abdominal pain, nausea, vomiting, diarrhea Genitourinary: Denies: urgency, dysuria, frequency, hematuria, discharge Neurological: Denies: headache, weakness, numbness, paresthesias Past Medical History - Past Medical History Attestation: Yes The following information was validated with the patient. Source: obtained from family Medical history: Reports: diabetes, myocardial infarction, hypertension, coronary artery disease, COPD Surgical history: Reports: other Psychiatric history: Reports: anxiety - Social History Smoking Status: Current every day smoker Smokeless Tobacco Status: No Alcohol use: Reports: none Drug use: Reports: none Physical Exam - General Limitations: no limitations General appearance: alert, in distress Course Course Narrative: Patient was signed out to me by nighttime physicians Dr. Rob and Dr. Rodriguez pending repeat ABG and final disposition. Please see their note for further details. Atilio is a 62-year-old male history of COPD on 2L concentrator home oxygen supplementation, CHF, CAD who presented with concerns for respiratory distress. States the symptoms have been ongoing for the past 2 days with progressive worsening shortness of breath and productive cough with changes sputum to yellow and chest tightness. He was recently admitted for similar symptoms. The is in the room and helps with the history and states she attempted to up his oxygen yet he was still hypoxic 62%. He was immediately placed on BiPAP and has since improved. His initial ABG showed a pH of 7.25 and is CO2 was 93 with white count of 23. Patient was treated with DuoNeb is, steroids and a dose of Levaquin given the recent hospitalization. On repeat evaluation he continues to be tight by has significant improvement of his breathing. He continues to have some tight aeration and would benefit another breathing treatment. Repeat ABG pending, if improving will plan for admission for COPD exacerbation. CXR did not reveal pneumonia. They are in agreement with plan. - Consultations Consultation #1: Spoke with on-call hospitalist yamil Hanson to admit for COPD exacerbation and hypoxia. Patients ABG continues to improve while on BiPAP. He appears more comfortable and this is in agreement with the patient as well as . After additional 3 DuoNeb treatments his lungs are no clear with improved aeration. Does not require intubation at this time.. No further orders at this time Time: 08:28 Vital Signs Temperature 97.6 F 08/04/18 05:38 Pulse Rate 112 08/04/18 05:38 Respiratory Rate 40 08/04/18 05:38 Blood Pressure 202/67 08/04/18 05:38 O2 Sat by Pulse Oximetry 90 08/04/18 05:38 Temperature 97.6 F 08/04/18 05:38 Pulse Rate 104 08/04/18 06:25 Respiratory Rate 28 08/04/18 07:45 Blood Pressure 163/71 08/04/18 06:25 O2 Sat by Pulse Oximetry 100 08/04/18 07:45 Oxygen Delivery Oxygen Delivery Bipap Shortness of Breath/Dyspnea - MDM Narrative Medical decision making narrative: Patient was discussed with my attending physician who agrees with ED management and final disposition. They independently evaluated the patient. Please refer to their attestation to this encounter for additional information. This note was generated by [employer] voice recognition software and as a result grammatical or spelling errors may occur using this program. - Medical Records Medical records reviewed: Yes I reviewed the patient's medical records. - Lab Data Lab results reviewed: Yes I reviewed the patient's lab results. Result diagrams: 08/04/18 05:50 08/04/18 05:50 Lab Results 08/04/18 08/04/18 08/04/18 Range/Units 05:50 05:50 05:50 WBC 23.3 H D (4.3-11.1) K/mcL RBC 4.65 (4.19-5.50) M/mcL Hgb 13.3 (12.9-16.9) g/dL Hct 43.1 (37.5-50.1) % MCV 92.7 (83.0-100.0) fL MCH 28.6 (28.0-33.3) pg MCHC 30.9 L (31.6-35.5) g/dL RDW 13.9 (11.5-14.5) % Plt Count 372 (140-400) K/mcL MPV 9.2 L (9.4-12.4) fL Immature Gran % 1.0 (0-4) % Seg Neutrophils % 87.3 % Lymphocytes % 4.8 % Monocytes % 5.5 % Eosinophils % 1.1 % Basophils % 0.3 % Neutrophils # 20.3 H (1.6-8.9) K/mcL Lymphocytes # 1.1 (0.6-4.6) K/mcL Monocytes # 1.3 (0.0-1.3) K/mcL Eosinophils # 0.3 (0.0-0.6) K/mcL Basophils # 0.1 (0.0-0.2) K/mcL Sample Site ABG pH (7.32-7.45) pH Units ABG pCO2 (35-45) mmHg ABG pO2 (85-104) mmHg ABG HCO3 (21-27) mEq/L ABG Total CO2 (20-26) mEq/L ABG O2 Saturation (95-98) % ABG Base Excess (-2 to 3) mEq/L [place] Test O2 Delivery Device Blood Gas Modality Inspired O2 (1-15=lpm [id number]=%) PEEP cm H2O Pressure Support cm H2O Sodium 138 (136-145) mEq/L Potassium 4.1 (3.5-5.1) mEq/L Chloride 95 L (98-107) mEq/L Carbon Dioxide 32 H (23-29) mEq/L BUN 26 H (8-23) mg/dL Creatinine 1.87 H (0.70-1.30) mg/dL Est GFR ( Amer) 45 L (> 60) Est GFR (Non-Af Amer) 37 L (> 60) BUN/Creatinine Ratio 14 (6-26) Glucose 229 H (70-105) mg/dL Calculated Osmolality 298 (280-300) Lactic Acid 1.2 (0.5-2.2) mmol/L Calcium 9.6 (8.6-10.3) mg/dL Troponin I < 0.03 (< 0.04) ng/mL B-Natriuretic Peptide (Less than 100) pg/mL 08/04/18 08/04/18 08/04/18 Range/Units 05:50 05:56 07:22 WBC (4.3-11.1) K/mcL RBC (4.19-5.50) M/mcL Hgb (12.9-16.9) g/dL Hct (37.5-50.1) % MCV (83.0-100.0) fL MCH (28.0-33.3) pg MCHC (31.6-35.5) g/dL RDW (11.5-14.5) % Plt Count (140-400) K/mcL MPV (9.4-12.4) fL Immature Gran % (0-4) % Seg Neutrophils % % Lymphocytes % % Monocytes % % Eosinophils % % Basophils % % Neutrophils # (1.6-8.9) K/mcL Lymphocytes # (0.6-4.6) K/mcL Monocytes # (0.0-1.3) K/mcL Eosinophils # (0.0-0.6) K/mcL Basophils # (0.0-0.2) K/mcL Sample Site L Radial ABG pH 7.25 L (7.32-7.45) pH Units ABG pCO2 93 H* (35-45) mmHg ABG pO2 115 H (85-104) mmHg ABG HCO3 41 H (21-27) mEq/L ABG Total CO2 44 H (20-26) mEq/L ABG O2 Saturation 97 (95-98) % ABG Base Excess 9 H (-2 to 3) mEq/L [place] Test Positive O2 Delivery Device NRB Blood Gas Modality Inspired O2 15.0 (1-15=lpm [id number]=%) PEEP cm H2O Pressure Support cm H2O Sodium (136-145) mEq/L Potassium (3.5-5.1) mEq/L Chloride (98-107) mEq/L Carbon Dioxide (23-29) mEq/L BUN (8-23) mg/dL Creatinine (0.70-1.30) mg/dL Est GFR ( Amer) (> 60) Est GFR (Non-Af Amer) (> 60) BUN/Creatinine Ratio (6-26) Glucose (70-105) mg/dL Calculated Osmolality (280-300) Lactic Acid 0.7 (0.5-2.2) mmol/L Calcium (8.6-10.3) mg/dL Troponin I (< 0.04) ng/mL B-Natriuretic Peptide 82 (Less than 100) pg/mL 08/04/18 Range/Units 07:42 WBC (4.3-11.1) K/mcL RBC (4.19-5.50) M/mcL Hgb (12.9-16.9) g/dL Hct (37.5-50.1) % MCV (83.0-100.0) fL MCH (28.0-33.3) pg MCHC (31.6-35.5) g/dL RDW (11.5-14.5) % Plt Count (140-400) K/mcL MPV (9.4-12.4) fL Immature Gran % (0-4) % Seg Neutrophils % % Lymphocytes % % Monocytes % % Eosinophils % % Basophils % % Neutrophils # (1.6-8.9) K/mcL Lymphocytes # (0.6-4.6) K/mcL Monocytes # (0.0-1.3) K/mcL Eosinophils # (0.0-0.6) K/mcL Basophils # (0.0-0.2) K/mcL Sample Site ABG pH 7.28 L (7.32-7.45) pH Units ABG pCO2 85 H* (35-45) mmHg ABG pO2 149 H (85-104) mmHg ABG HCO3 40 H (21-27) mEq/L ABG Total CO2 42 H (20-26) mEq/L ABG O2 Saturation 99 H (95-98) % ABG Base Excess 9 H (-2 to 3) mEq/L [place] Test O2 Delivery Device BiPAP Blood Gas Modality BiLevel Inspired O2 50.0 (1-15=lpm lc16-246=%) PEEP 12 cm H2O Pressure Support 6 cm H2O Sodium (136-145) mEq/L Potassium (3.5-5.1) mEq/L Chloride (98-107) mEq/L Carbon Dioxide (23-29) mEq/L BUN (8-23) mg/dL Creatinine (0.70-1.30) mg/dL Est GFR ( Amer) (> 60) Est GFR (Non-Af Amer) (> 60) BUN/Creatinine Ratio (6-26) Glucose (70-105) mg/dL Calculated Osmolality (280-300) Lactic Acid (0.5-2.2) mmol/L Calcium (8.6-10.3) mg/dL Troponin I (< 0.04) ng/mL B-Natriuretic Peptide (Less than 100) pg/mL - Radiology Data Radiology results reviewed: Yes I reviewed the patient's radiology results. Chest X-Ray 08/04/18 05:39 IMPRESSION: No acute cardiopulmonary abnormality. COPD. D/ / Carlos Fields MD / Carlos Fields MD Interpreting Provider: Carlos Fields MD Attestation Statement - Attestation Attestation: I, Isacc Weems DO, examined this patient [id number] and my medical decision-making was reviewed with Charly Chou DO , Resident Physician. I agree with the documented findings, disposition and treatment plan as described except to the extent set forth below. Please see my progress notes for details.
[2018-08-04 07:50] LABS: ABG Base Excess 9 mEq/L (-2 to 3); ABG HCO3 40 mEq/L (21-27); ABG Oxygen Saturation 99 % (95-98); ABG PCO2 85 mmHg (35-45); ABG PH 7.28 pH Units (7.32-7.45); ABG PO2 149 mmHg (85-104); ABG TCO2 42 mEq/L (20-26); Blood Gas Modality BiLevel; Blood Gas PEEP 12 cm H2O; Blood Gas Pressure Support 6 cm H2O
--- NOTE | 2018-08-04 08:13 | Emergency Department Note ---
Disposition Clinical Impression: COPD exacerbation, Hypoxia Respiratory failure Qualifiers: Chronicity: unspecified Respiratory failure complication: hypoxia and hyperc apnia Qualified Code(s): J96.91 - Respiratory failure, unspecified with hypoxia Disposition: Admitted As Inpatient Condition: Fair Referrals: Madelaine Russell CNP [Primary Care Provider] - Forms: ED Satisfaction Letter Time of Disposition: 08:54 General Adult HPI - General Chief complaint: ED Shortness of Breath/Dyspnea Stated complaint: "PATEL" Time Seen by Provider: 08/04/18 05:38 Source: patient Mode of arrival: wheelchair Limitations: no limitations - History of Present Illness Pain Scale: 0 - Related Data Home Medications Medication Instructions Recorded Confirmed Albuterol Sulfate [Ventolin Hfa] 2 puff IH Q4H PRN 03/17/17 07/01/18 Aspirin [Lo-Dose Aspirin EC] 81 mg PO DAILY 03/29/17 07/01/18 Clopidogrel [Plavix] 75 mg PO DAILY 03/29/17 07/01/18 Metformin HCl [Metformin HCl ER] 500 mg PO BID 03/29/17 07/01/18 Furosemide [Lasix] 40 mg PO DAILY 06/30/18 07/01/18 Albuterol Neb [Proventil Neb] 2.5 mg IH Q8H PRN 07/01/18 07/01/18 Atorvastatin [Lipitor] 20 mg PO HS 07/01/18 07/01/18 Docusate [Colace] 100 mg PO DAILY PRN 07/01/18 07/01/18 LORazepam [Ativan] 1 mg PO HS 07/01/18 07/01/18 Melatonin 10 mg PO HS 07/01/18 07/01/18 Tiotropium Br/Olodaterol HCl 2 puff IH DAILY 07/01/18 07/01/18 [Stiolto Respimat Inhal [place]] Previous Rx's Medication Instructions Recorded Fluticasone/Salmeterol [Advair Hfa 2 puff IH BID #1 hfa.aer.ad 10/21/17 230-21 Mcg Inhaler] hydrALAZINE [HydrALAZINE] 25 mg PO Q8HR #90 tablet 10/21/17 Labetalol [Trandate] 200 mg PO BID #60 tablet 07/04/18 Lactobacillus [Culturelle] 1 each PO BID #20 cap.sprink 07/04/18 Lisinopril [Zestril] 20 mg PO DAILY #30 tablet 07/04/18 Multivitamin [One Daily Essential] 1 each PO DAILY #0 07/04/18 levoFLOXacin [Levofloxacin] 750 mg PO DAILY #7 tablet 07/04/18 predniSONE [PredniSONE] 10 mg PO DAILY #10 tablet 07/04/18 Allergies Allergy/AdvReac Type Severity Reaction Status Date / Time Penicillins Allergy Hives Verified 07/01/18 12:14 Sulfa (Sulfonamide Allergy Hives Verified 07/01/18 12:14 Antibiotics) Constitutional: Denies: fever Cardiovascular: Reports: chest pain Respiratory: Reports: cough, dyspnea, wheezes Gastrointestinal: Denies: abdominal pain, nausea, vomiting, diarrhea Genitourinary: Denies: urgency, dysuria, frequency, hematuria, discharge Neurological: Denies: headache, weakness, numbness, paresthesias Past Medical History - Past Medical History Medical history: Reports: diabetes, myocardial infarction, hypertension, coronary artery disease, COPD Surgical history: Reports: other Psychiatric history: Reports: anxiety - Social History Smoking Status: Current every day smoker Smokeless Tobacco Status: No Alcohol use: Reports: none Drug use: Reports: none Physical Exam - General Limitations: no limitations General appearance: alert, in distress Course Vital Signs Temperature 97.6 F 08/04/18 05:38 Pulse Rate 112 08/04/18 05:38 Respiratory Rate 40 08/04/18 05:38 Blood Pressure 202/67 08/04/18 05:38 O2 Sat by Pulse Oximetry 90 08/04/18 05:38 Temperature 97.6 F 08/04/18 05:38 Pulse Rate 104 08/04/18 06:25 Respiratory Rate 28 08/04/18 07:45 Blood Pressure 163/71 08/04/18 06:25 O2 Sat by Pulse Oximetry 100 08/04/18 07:45 Oxygen Delivery Oxygen Delivery Bipap Medical Decision Making - Lab Data Result diagrams: 08/04/18 05:50 08/04/18 05:50 Lab Results 08/04/18 08/04/18 08/04/18 Range/Units 05:50 05:50 05:50 WBC 23.3 H D (4.3-11.1) K/mcL RBC 4.65 (4.19-5.50) M/mcL Hgb 13.3 (12.9-16.9) g/dL Hct 43.1 (37.5-50.1) % MCV 92.7 (83.0-100.0) fL MCH 28.6 (28.0-33.3) pg MCHC 30.9 L (31.6-35.5) g/dL RDW 13.9 (11.5-14.5) % Plt Count 372 (140-400) K/mcL MPV 9.2 L (9.4-12.4) fL Immature Gran % 1.0 (0-4) % Seg Neutrophils % 87.3 % Lymphocytes % 4.8 % Monocytes % 5.5 % Eosinophils % 1.1 % Basophils % 0.3 % Neutrophils # 20.3 H (1.6-8.9) K/mcL Lymphocytes # 1.1 (0.6-4.6) K/mcL Monocytes # 1.3 (0.0-1.3) K/mcL Eosinophils # 0.3 (0.0-0.6) K/mcL Basophils # 0.1 (0.0-0.2) K/mcL Sample Site ABG pH (7.32-7.45) pH Units ABG pCO2 (35-45) mmHg ABG pO2 (85-104) mmHg ABG HCO3 (21-27) mEq/L ABG Total CO2 (20-26) mEq/L ABG O2 Saturation (95-98) % ABG Base Excess (-2 to 3) mEq/L [place] Test O2 Delivery Device Blood Gas Modality Inspired O2 (1-15=lpm [id number]=%) PEEP cm H2O Pressure Support cm H2O Sodium 138 (136-145) mEq/L Potassium 4.1 (3.5-5.1) mEq/L Chloride 95 L (98-107) mEq/L Carbon Dioxide 32 H (23-29) mEq/L BUN 26 H (8-23) mg/dL Creatinine 1.87 H (0.70-1.30) mg/dL Est GFR ( Amer) 45 L (> 60) Est GFR (Non-Af Amer) 37 L (> 60) BUN/Creatinine Ratio 14 (6-26) Glucose 229 H (70-105) mg/dL Calculated Osmolality 298 (280-300) Lactic Acid 1.2 (0.5-2.2) mmol/L Calcium 9.6 (8.6-10.3) mg/dL Troponin I < 0.03 (< 0.04) ng/mL B-Natriuretic Peptide (Less than 100) pg/mL 08/04/18 08/04/18 08/04/18 Range/Units 05:50 05:56 07:22 WBC (4.3-11.1) K/mcL RBC (4.19-5.50) M/mcL Hgb (12.9-16.9) g/dL Hct (37.5-50.1) % MCV (83.0-100.0) fL MCH (28.0-33.3) pg MCHC (31.6-35.5) g/dL RDW (11.5-14.5) % Plt Count (140-400) K/mcL MPV (9.4-12.4) fL Immature Gran % (0-4) % Seg Neutrophils % % Lymphocytes % % Monocytes % % Eosinophils % % Basophils % % Neutrophils # (1.6-8.9) K/mcL Lymphocytes # (0.6-4.6) K/mcL Monocytes # (0.0-1.3) K/mcL Eosinophils # (0.0-0.6) K/mcL Basophils # (0.0-0.2) K/mcL Sample Site L Radial ABG pH 7.25 L (7.32-7.45) pH Units ABG pCO2 93 H* (35-45) mmHg ABG pO2 115 H (85-104) mmHg ABG HCO3 41 H (21-27) mEq/L ABG Total CO2 44 H (20-26) mEq/L ABG O2 Saturation 97 (95-98) % ABG Base Excess 9 H (-2 to 3) mEq/L [place] Test Positive O2 Delivery Device NRB Blood Gas Modality Inspired O2 15.0 (1-15=lpm [id number]=%) PEEP cm H2O Pressure Support cm H2O Sodium (136-145) mEq/L Potassium (3.5-5.1) mEq/L Chloride (98-107) mEq/L Carbon Dioxide (23-29) mEq/L BUN (8-23) mg/dL Creatinine (0.70-1.30) mg/dL Est GFR ( Amer) (> 60) Est GFR (Non-Af Amer) (> 60) BUN/Creatinine Ratio (6-26) Glucose (70-105) mg/dL Calculated Osmolality (280-300) Lactic Acid 0.7 (0.5-2.2) mmol/L Calcium (8.6-10.3) mg/dL Troponin I (< 0.04) ng/mL B-Natriuretic Peptide 82 (Less than 100) pg/mL 08/04/18 Range/Units 07:42 WBC (4.3-11.1) K/mcL RBC (4.19-5.50) M/mcL Hgb (12.9-16.9) g/dL Hct (37.5-50.1) % MCV (83.0-100.0) fL MCH (28.0-33.3) pg MCHC (31.6-35.5) g/dL RDW (11.5-14.5) % Plt Count (140-400) K/mcL MPV (9.4-12.4) fL Immature Gran % (0-4) % Seg Neutrophils % % Lymphocytes % % Monocytes % % Eosinophils % % Basophils % % Neutrophils # (1.6-8.9) K/mcL Lymphocytes # (0.6-4.6) K/mcL Monocytes # (0.0-1.3) K/mcL Eosinophils # (0.0-0.6) K/mcL Basophils # (0.0-0.2) K/mcL Sample Site ABG pH 7.28 L (7.32-7.45) pH Units ABG pCO2 85 H* (35-45) mmHg ABG pO2 149 H (85-104) mmHg ABG HCO3 40 H (21-27) mEq/L ABG Total CO2 42 H (20-26) mEq/L ABG O2 Saturation 99 H (95-98) % ABG Base Excess 9 H (-2 to 3) mEq/L [place] Test O2 Delivery Device BiPAP Blood Gas Modality BiLevel Inspired O2 50.0 (1-15=lpm rn07-155=%) PEEP 12 cm H2O Pressure Support 6 cm H2O Sodium (136-145) mEq/L Potassium (3.5-5.1) mEq/L Chloride (98-107) mEq/L Carbon Dioxide (23-29) mEq/L BUN (8-23) mg/dL Creatinine (0.70-1.30) mg/dL Est GFR ( Amer) (> 60) Est GFR (Non-Af Amer) (> 60) BUN/Creatinine Ratio (6-26) Glucose (70-105) mg/dL Calculated Osmolality (280-300) Lactic Acid (0.5-2.2) mmol/L Calcium (8.6-10.3) mg/dL Troponin I (< 0.04) ng/mL B-Natriuretic Peptide (Less than 100) pg/mL Attestation Statement - Attestation Attestation: I, Isacc Weems DO, examined this patient [id number] and my medical decision-making was reviewed with Charly Chou DO , Resident Physician. I agree with the documented findings, disposition and treatment plan as described except to the extent set forth below. Please see my progress notes for details. 62-year-old male presents to the emergency room prior to my shift starting. He was initially seen and evaluated by the overnight physicians Dr. Rodriguez and Dr. Rob. Vital signs were concerning on initial presentation with significant hypoxia as well as cyanosis to the skin. Patient is a long-standing history of COPD and emphysema. He has been admitted multiple times for this issue. Initial intervention was provided with antibiotics, steroids, breathing treatments and BiPAP. On repeat evaluation the patient's vital signs are stable except for slight tachycardia with a heart rate of 104. Patient is alert oriented and answering questions. He is able to speak but has BiPAP in place. His skin coloration appears to be better. He is not in any significant distress at this time. Currently, he is denying chest pain, fevers, chills. Denies nausea vomiting or diarrhea. Denies any headache or vision change. No recent medication changes. No falls no trauma. He does have a history of a cardiac a rrhythmia and is on hydralazine and labetalol at home. Vital signs will be followed closely. Repeat ABG to be collected secondary to the initial acidosis from respiratory related source. CO2 return and closely along with his mental status. On physical exam he sitting upright in the bed. Lungs still have diminished aeration with diffuse expiratory wheezing. Heart is regular. Abdomen is soft. No signs of pitting edema or swelling in the upper extremities. He does have mild pitting edema in the lower extremities. He denies any specific history of congestive heart failure. Pulses are intact and symmetrical bilaterally. No acute neurologic deficits noted at this time. Patient will require admission once the full workup and treatment course have been completed. See detailed documentation of the repeat physical exam, medical intervention, medical decision-making and disposition in the resident physician's note. No critical care applied to the patient's treatment course at this time. 0800 Repeat ABG shows mild resolution of the acidosis secondary to respiratory distress. CO2 is now 85 in comparison to 93 on arrival. Repeat breathing treatments will be given. Patient is mentating much better than initially described by the overnight physicians. No emergent intervention required at this point. Hospitalist will be contacted for admission at this time. Patient is otherwise clinically stable. 0845 Dr. Sanchez reviewed the case. No other concerns or issues at this time. We will evaluate the patient in the emergency department. Patient will be admitted for continuation of care. Repeat breathing treatments seemed to help with the patient initial symptoms at this time. We will monitor closely here in the emergency department until the admission processes established.
[2018-08-04] MEDS ORDERED: *HR* OxyCODONE Immed Rel 5 MG TABLET PO PRN (09:02)
[2018-08-04] MEDS ORDERED: Naloxone 0.4 MG/ML INJ IVP PRN (09:02)
[2018-08-04] MEDS ORDERED: *HR* HYDROcodone/Acet 5/325 mg TABLET PO PRN (09:02)
[2018-08-04] MEDS ORDERED: Acetaminophen 325 MG TABLET PO PRN (09:02)
[2018-08-04] MEDS ORDERED: Albuterol 2.5 MG/3 ML NEBULIZER IH PRN (09:07)
--- NOTE | 2018-08-04 10:49 | Internal Med History&Physical ---
Date of Encounter: 08/04/18 Time of Encounter: 09:35 Internal Medicine - H&P: HPI Chief complaint: Shortness of breath Admitted From: Home Plans for Post Hospital Care: Home History of present illness: Patient seen in the trauma room in ER with his daughter at the bedside Mr. Joseph is a 62 year old male with PMH of chronic respiratory failure on home oxygen, CKD III, tobacco abuse, COPD, coronary artery disease, h ypertension, diabetes and anxiety disorder presented to the emergency room with complaints of shortness of breath since yesterday, shortness of breath is worse at rest and has been progressive, with associated cough productive of yellowish sputum which is different from patient's baseline. He also reports associated pleuritic chest pain on coughing. He reports subjective fevers with chills, and he has some nausea. No vomiting.he reports associated rhinorrhea, no sore throat, no sick contact or recent travels. He has chronic leg edema that he does not think is worsening. He denies changes in urinary or bowel habits, he has no neurological symptoms On presentation, he was found in significant respiratory distress and placed on BIPAP with multiple duonebs and steroid administration On my evaluation, he reports, he is feeling some improvement, air entry is significantly diminished Chem is at baseline for CKD. BNP and trop are negative he has leukocytosis with left shift, no anemia, PLT is WNL CX is without infiltrates, he does have significant leukocytosis with left shift, ABG showed resp acidosis with hypercapnea, He remains high risk for invasive mechanical ventilation, he is admitted for acute on chronic hypercapneic and hypoxic resp failure, and COPDE. Past Med Surg Social Fam HX - Past Medical History Medical history: diabetes, myocardial infarction, hypertension, coronary artery disease, COPD Psychiatric history: anxiety - Past Surgical History Surgical History: other Additional surgical history: cardiac cath with stent - Social History Smoking Status: Current every day smoker Smokeless Tobacco Status: No Alcohol use: none Drug use: none - Family History Mother Living Status: Hx Family Cardiac Disorders: Yes Hx Family Respiratory Disorders: No Hx Family Cancer: No Hx Family GI Disorders: Yes Internal Medicine - H&P: Meds Albuterol Sulfate [Ventolin Hfa] 2 puff IH Q4H PRN 03/17/17 [History] Aspirin [Lo-Dose Aspirin EC] 81 mg PO DAILY 03/29/17 [History] Clopidogrel [Plavix] 75 mg PO DAILY 03/29/17 [History] Metformin HCl [Metformin HCl ER] 500 mg PO BID 03/29/17 [History] Fluticasone/Salmeterol [Advair Hfa 230-21 Mcg Inhaler] 2 puff IH BID #1 hfa.aer.ad 10/21/17 [Rx] hydrALAZINE [HydrALAZINE] 25 mg PO Q8HR #90 tablet 10/21/17 [Rx] Furosemide [Lasix] 40 mg PO DAILY 06/30/18 [History] Atorvastatin [Lipitor] 20 mg PO HS 07/01/18 [History] Docusate [Colace] 100 mg PO DAILY PRN 07/01/18 [History] LORazepam [Ativan] 1 mg PO HS 07/01/18 [History] Melatonin 10 mg PO HS 07/01/18 [History] Tiotropium Br/Olodaterol HCl [Stiolto Respimat Inhal [place]] 2 puff IH DAILY 07/01/18 [History] Lisinopril [Zestril] 20 mg PO DAILY #30 tablet 07/04/18 [Rx] Labetalol HCl 300 mg PO BID 08/04/18 [History] Multivitamin [One Daily Essential] 1 tab PO DAILY 08/04/18 [History] Allergy/AdvReac Type Severity Reaction Status Date / Time Penicillins Allergy Hives Verified 07/01/18 12:14 Sulfa (Sulfonamide Allergy Hives Verified 07/01/18 12:14 Antibiotics) All Systems PM: A 10-system review of systems was performed and is negative for pertinent findings except as documented above in the HPI. - Constitutional Constitutional: chills, fever(s) - EENT Eyes: no change in vision, no discharge, no pain, no photophobia Ears: no ear discharge, no ear pain, no tinnitus Nose, mouth and throat: no dysphagia, no nasal discharge, no neck pain, no sore throat - Cardiovascular Cardiovascular ROS IM: no chest pain, no diaphoresis, no dyspnea, no lightheadedness, no palpitations, no syncope - Respiratory Respiratory: cough, dyspnea, dyspnea on exertion - Gastrointestinal Gastrointestinal: no abdominal pain, no diarrhea, no hematemesis, no hematochezia, no melena, no nausea, no vomiting - Musculoskeletal Musculoskeletal ROS IM: no numbness, no tingling - Integumentary Integumentary IM: no rash, no unusual bruising - Neurological Neurological ROS: no confusion, no convulsions, no focal weakness, no numbness, no tingling, no tremor(s) - Hematologic/Lymphatic Hematologic/Lymphatic: no easy bruising - Constitutional Vitals: Temp Pulse Resp BP Pulse Ox 97.6 F 104 20 135/56 100 08/04/18 05:38 08/04/18 06:25 08/04/18 09:54 08/04/18 09:54 08/04/18 07:45 Exam: VS noted Gen: Calm, sitting up in bed on BIPAP, speaks full sentences HEENT: Moist oral mucosa, sclera anicteric, not pale Chest: Equal chest movement bilaterally REsp:Significantly diminished air entry bilaterally Heart: S1, S2, only, no m/g/r Abdomen: Obese, soft, not tender, BS present in al quadrants Extremities: Joint inspection is WNL, pitting pedal eema up to the josue bilaterally. Neuro: AAOX3, no speech deficits, moves all extremities equally, no facial para lysis Psych: Affect is appropriate Internal Med - H&P Results - Labs CBC & Chem 7: 08/04/18 05:50 08/04/18 05:50 Labs: Short CBC 08/04/18 Range/Units 05:50 WBC 23.3 H D (4.3-11.1) K/mcL Hgb 13.3 (12.9-16.9) g/dL Hct 43.1 (37.5-50.1) % Plt Count 372 (140-400) K/mcL Neutrophils # 20.3 H (1.6-8.9) K/mcL BMP 08/04/18 05:50 Sodium 138 Potassium 4.1 Chloride 95 L Carbon Dioxide 32 H BUN 26 H Creatinine 1.87 H Glucose 229 H Calcium 9.6 Cardiac Enzymes 08/04/18 Range/Units 05:50 Troponin I < 0.03 (< 0.04) ng/mL - ABG Interpretation ABG results: 08/04/18 08/04/18 05:56 07:42 ABG pH 7.25 L 7.28 L ABG pCO2 93 H* 85 H* ABG pO2 115 H 149 H ABG HCO3 41 H 40 H ABG Total CO2 44 H 42 H ABG O2 Saturation 97 99 H ABG Base Excess 9 H 9 H - Impressions ITS Impressions Chest X-Ray 08/04/18 05:39 IMPRESSION: No acute cardiopulmonary abnormality. COPD. D/ / Carlos Fields MD / Carlos Fields MD Interpreting Provider: Carlos Fields MD - Assessment and plan (1) Acute exacerbation of chronic obstructive airways disease Current Visit: Yes Status: Acute Assessment and plan: Wih resp acidosis and hypercapnea Continue IV steroids Duonebs q4hr Deana Alb q2h prn Continue levaquin IV No PNA on CXR Consider rpt imaging a.m, if patient does not improve , or if leukocytosis persists Continue BIPAP Repeat ABG in 4 hrs Consider BiPAP qualification prior to discharge (2) Acute on chronic respiratory failure with hypercapnia Current Visit: Yes Status: Acute Assessment and plan: as above (3) CAD (coronary artery disease) Current Visit: Yes Status: Chronic Assessment and plan: Continue home meds, no suspicion for ACS Qualifiers: Coronary Disease-Associated Artery/Lesion type: [place] artery [place] vs. transplanted heart: [place] heart Associated angina: without angina Qualified Code(s): I25.10 - Atherosclerotic heart disease of [place] coronary artery without angina pectoris (4) Diabetes mellitus Current Visit: Yes Status: Chronic Assessment and plan: FS q4H for now Sliding scale insulin Qualifiers: Diabetes mellitus type: type 2 Diabetes mellitus senior care insulin use: unspecified senior care insulin use status Diabetes mellitus complication status: with unspecified complications Qualified Code(s): E11.8 - Type 2 diabetes mellitus with unspecified complications (5) HTN (hypertension) Current Visit: Yes Status: Chronic Assessment and plan: continue home meds Qualifiers: Hypertension type: essential hypertension Qualified Code(s): I10 - Essential (primary) hypertension (6) Tobacco abuse Current Visit: Yes Status: Chronic Assessment and plan: encourage cessation (7) DVT prophylaxis Current Visit: Yes Status: Acute Assessment and plan: SQ heparin (8) CHF (congestive heart failure) Current Visit: Yes Status: Chronic Assessment and plan: Patient with chronic diastolic CHF ECHO from 06/2018 noted for mild LVDD, EF 50-55% , no significant valvular dysfunction Continue home dose of lasi, given IV now due to NPO status BNP is WNL and patient has no pulm edema on CXR Qualifiers: Heart failure type: diastolic Heart failure chronicity: chronic Qualified Code(s): I50.32 - Chronic diastolic (congestive) heart failure - Time Spent With Patient Total time spent is greater than 50% in coordination of care (as documented) at patient's floor/unit and/or counseling patient:
[2018-08-04] MEDS ORDERED: Furosemide 40 MG/4 ML VIAL IVP ONE (10:53)
[2018-08-04] MEDS ORDERED: D5% in Water 1,000 ML IVC PRN (11:45)
[2018-08-04] MEDS ORDERED: Dextrose Gel 15 GM/37.5 ML TUBE PO PRN ×2 (11:45)
[2018-08-04] MEDS ORDERED: *HR* Dextrose 50 % in Water (Syg) 50 ML SYRINGE IVP PRN (11:45)
[2018-08-04] MEDS ORDERED: Ipratropium 1 PUFF INHALER IH SCH (12:00)
[2018-08-04 14:10] LABS: ABG Base Excess 10 mEq/L (-2 to 3); ABG HCO3 41 mEq/L (21-27); ABG Oxygen Saturation 97 % (95-98); ABG PCO2 82 mmHg (35-45); ABG PO2 111 mmHg (85-104); ABG TCO2 43 mEq/L (20-26); Blood Gas Modality BiLevel; Blood Gas PEEP 12 cm H2O; Blood Gas Pressure Support 6 cm H2O
[2018-08-04] MEDS: hydrALAZINE 25 MG TABLET PO SCH ×2 (14:45→20:05)
[2018-08-04] MEDS: Insulin LISPRO 300 UNITS/3 ML VIAL SQ SCH ×3 (15:09→23:07)
[2018-08-04] MEDS: Ipratropium/Albuterol Neb 3 ML IH SCH ×3 (16:00→23:37)
[2018-08-04] MEDS: MethylPREDNISolone 40 MG/ML VIAL IVP SCH ×2 (18:01→23:04)
[2018-08-04] MEDS: Melatonin 3 MG TABLET PO SCH (20:04)
[2018-08-04] MEDS: *HR* LORazepam 1 MG TABLET PO SCH (20:04)
[2018-08-05] MEDS: Ipratropium/Albuterol Neb 3 ML IH SCH ×6 (04:01→23:46)
[2018-08-05 04:49] LABS: Basophils % 0.1 %; Hematocrit 38.7 % (37.5-50.1); Hemoglobin 12.2 g/dL (12.9-16.9); Immature Granulocytes % 0.9 % (0-4); Lymphocytes # 0.5 K/mcL (0.6-4.6); Lymphocytes % 3.4 %; Mean Corpuscular HGB Conc 31.5 g/dL (31.6-35.5); Mean Corpuscular Volume 91.9 fL (83.0-100.0); Mean Platelet Volume 9.4 fL (9.4-12.4); Monocytes # 0.4 K/mcL (0.0-1.3); Monocytes % 2.2 %; Platelet Count 332 K/mcL (140-400); Red Blood Count 4.21 M/mcL (4.19-5.50); Red Cell Distribution Width 13.8 % (11.5-14.5); Segmented Neutrophils % 93.4 %
[2018-08-05 05:08] LABS: Calcium 9.4 mg/dL (8.6-10.3); Potassium 4.3 mEq/L (3.5-5.1)
[2018-08-05] MEDS: MethylPREDNISolone 40 MG/ML VIAL IVP SCH ×4 (05:33→23:30)
[2018-08-05] MEDS: *HR* Enoxaparin 40 MG/0.4 ML SYRINGE SQ SCH (05:33)
[2018-08-05] MEDS: Insulin LISPRO 300 UNITS/3 ML VIAL SQ SCH ×4 (05:35→20:01)
[2018-08-05] MEDS ORDERED: *HR* Enoxaparin 40 MG/0.4 ML SYRINGE SQ SCH (06:00)
[2018-08-05 08:58] LABS: ABG Base Excess 10 mEq/L (-2 to 3); ABG HCO3 37 mEq/L (21-27); ABG Oxygen Saturation 89 % (95-98); ABG PCO2 62 mmHg (35-45); ABG PH 7.39 pH Units (7.32-7.45); ABG PO2 59 mmHg (85-104); ABG TCO2 39 mEq/L (20-26)
[2018-08-05] MEDS ORDERED: D5% in Water 1,000 ML IVC PRN ×2 (09:25→09:28)
[2018-08-05] MEDS ORDERED: *HR* Dextrose 50 % in Water (Syg) 50 ML SYRINGE IVP PRN (09:28)
[2018-08-05] MEDS ORDERED: Dextrose Gel 15 GM/37.5 ML TUBE PO PRN ×2 (09:28)
[2018-08-05] MEDS: Aspirin Enteric Coated 81 MG Tablet PO SCH (09:41)
[2018-08-05] MEDS: hydrALAZINE 25 MG TABLET PO SCH ×3 (09:41→20:01)
[2018-08-05] MEDS: Lisinopril 20 MG TABLET PO SCH (09:41)
[2018-08-05] MEDS: Multivit/Ca/Min/Fe/FA 1 TAB TABLET PO SCH (09:41)
[2018-08-05] MEDS: Furosemide 40 MG TABLET PO SCH (09:41)
--- NOTE | 2018-08-05 10:40 | Internal Med Progress Note ---
<Glenn Alejo - Last Filed: 08/05/18 13:18> Hospitalist Progress Note - Encounter Date of Encounter: 08/05/18 Time of Encounter: 10:37 - Subjective Interval History: Patient in no acute distress, no acute events overnight Patient denies any current chest pain or shortness of breath, states he is comfortable with 4 L nasal cannula. He denies fever chills, does complain of a productive cough and is producing white sputum which is changed from yellow sputum previously. He states that the white sputum he is currently producing is his norm. - Exam Vitals: Temp Pulse Resp BP Pulse Ox 98 F 93 30 145/69 93 08/05/18 03:30 08/05/18 07:56 08/05/18 07:56 08/05/18 07:56 08/05/18 09:50 Exam: Patient in no acute distress, standing next to bed and tripoding, states he is more comfortable that way Normal affect, alert and oriented 3 Cranial nerves II through XII intact Heart tachycardic and regular rhythm without murmur or gallop Lungs diminished throughout with scattered bilateral wheezes, rhonchi cleared with cough Abdomen soft and nontender with normal bowel sounds present Bilateral lower extremities nonedematous Skin warm and dry - Assessment and Plan (1) Acute exacerbation of chronic obstructive airways disease Current Visit: Yes Status: Acute Assessment and Plan: Patient presented yesterday with new onset shortness of breath, worsened productive cough Patient has history of COPD with exacerbations and recent history of hospitalization for pneumonia Patient uses O2 and nebulizers at home which were not helpful Patient was admitted and started on IV steroids, BiPAP, bronchodilators, IV Levaquin Patient had elevated white count and there was a concern for infection however white count has significantly decreased since yesterday and the patient has been afebrile and without other signs of infection or signs of pneumonia on chest x- ray, patient is hemodynamically stable Repeat ABG this morning significantly improved from yesterday Respiratory status is significantly improved and the patient is saturating and ventilating well on 4 L nasal cannula Clinically however he does still appear to be in mild respiratory distress Plan Continue IV systemic corticosteroids and bronchodilator therapy as well as BiPAP, IV Levaquin Patient would benefit from pulmonary function testing prior to discharge to assess for the need for home BiPAP Patient would also benefit from outpatient follow-up with pulmonology Plan to reassess patient tomorrow for de-escalation to oral corticosteroids (2) Acute on chronic respiratory failure with hypercapnia Current Visit: Yes Status: Acute Assessment and Plan: Plan as seen above (3) CHF (congestive heart failure) Current Visit: Yes Status: Chronic Assessment and Plan: Patient with chronic diastolic CHF ECHO from 06/2018 noted for mild LVDD, EF 50-55% , no significant valvular dysfunction Chest x-ray on admission was negative for signs of pulmonary edema or effusion Respiratory status has clinically improved, no signs of exacerbation Continue home dose of lasix 40 mg by mouth daily (4) CAD (coronary artery disease) Current Visit: Yes Status: Chronic Assessment and Plan: Continue home Plavix and Lipitor, no suspicion for ACS (5) Diabetes mellitus Current Visit: Yes Status: Chronic Assessment and Plan: Corrective low-dose sliding scale insulin protocol and diabetic diet with every 6 and before meals at bedtime Accu-Cheks (6) HTN (hypertension) Current Visit: Yes Status: Chronic Assessment and Plan: continue home labetalol and lisinopril (7) Tobacco abuse Current Visit: Yes Status: Chronic Assessment and Plan: Patient was informed that smoking cessation is the primary method to prevent further COPD exacerbations and hospitalizations (8) DVT prophylaxis Current Visit: Yes Status: Acute Assessment and Plan: 40 mg subcutaneous Lovenox daily (9) Chronic kidney disease (CKD) Current Visit: Yes Status: Chronic Assessment and Plan: Patient's creatinine at admission was 1.87 and is 1.83 today Based on previous admissions this appears to be baseline or slightly less than baseline Plan to closely monitor kidney function and avoid nephrotoxins and renally dose medications - Time Spent with Patient Total time spent is greater than 50% in coordination of care (as documented) at patient's floor/unit and/or counseling patient: Internal Medicine: Result - Labs CBC & Chem 7: 08/05/18 03:57 08/05/18 03:57 Labs: Short CBC 08/05/18 Range/Units 03:57 WBC 16.0 H (4.3-11.1) K/mcL Hgb 12.2 L (12.9-16.9) g/dL Hct 38.7 (37.5-50.1) % Plt Count 332 (140-400) K/mcL Neutrophils # 15.0 H (1.6-8.9) K/mcL BMP 08/05/18 03:57 Sodium 135 L Potassium 4.3 Chloride 94 L Carbon Dioxide 32 H BUN 35 H Creatinine 1.83 H Glucose 188 H Calcium 9.4 - ABG Interpretation ABG results: ABG ABG pH 7.39 pH Units (7.32-7.45) 08/05/18 08:55 ABG pCO2 62 mmHg (35-45) H 08/05/18 08:55 ABG pO2 59 mmHg (85-104) L 08/05/18 08:55 ABG O2 Saturation 89 % (95-98) L 08/05/18 08:55 Consult Discharge Plan - Plan Referrals: Madelaine Russell DIRECTOR OF SCIENTIFIC RESEARCH [Primary Care Provider] - 08/12/18 10:00 am <Joellen Marques - Last Filed: 08/05/18 19:31> Hospitalist Progress Note - Encounter Date of Encounter: 08/05/18 - Exam Vitals: Temp Pulse Resp BP Pulse Ox 97.9 F 82 16 150/70 97 08/05/18 14:45 08/05/18 14:45 08/05/18 16:04 08/05/18 16:04 08/05/18 16:04 - Assessment and Plan (1) HTN (hypertension) Current Visit: Yes Status: Chronic (2) Tobacco abuse Current Visit: Yes Status: Chronic (3) DVT prophylaxis Current Visit: Yes Status: Acute (4) Diabetes mellitus Current Visit: Yes Status: Chronic (5) CAD (coronary artery disease) Current Visit: Yes Status: Chronic (6) Acute on chronic respiratory failure with hypercapnia Current Visit: Yes Status: Acute (7) Acute exacerbation of chronic obstructive airways disease Current Visit: Yes Status: Acute (8) CHF (congestive heart failure) Current Visit: Yes Status: Chronic (9) Chronic kidney disease (CKD) Current Visit: Yes Status: Chronic - Time Spent with Patient Total time spent is greater than 50% in coordination of care (as documented) at patient's floor/unit and/or counseling patient: Internal Medicine: Result - Labs CBC & Chem 7: 08/05/18 03:57 08/05/18 03:57 Labs: Short CBC 08/05/18 Range/Units 03:57 WBC 16.0 H (4.3-11.1) K/mcL Hgb 12.2 L (12.9-16.9) g/dL Hct 38.7 (37.5-50.1) % Plt Count 332 (140-400) K/mcL Neutrophils # 15.0 H (1.6-8.9) K/mcL BMP 08/05/18 03:57 Sodium 135 L Potassium 4.3 Chloride 94 L Carbon Dioxide 32 H BUN 35 H Creatinine 1.83 H Glucose 188 H Calcium 9.4 - ABG Interpretation ABG results: ABG ABG pH 7.39 pH Units (7.32-7.45) 08/05/18 08:55 ABG pCO2 62 mmHg (35-45) H 08/05/18 08:55 ABG pO2 59 mmHg (85-104) L 08/05/18 08:55 ABG O2 Saturation 89 % (95-98) L 08/05/18 08:55 - Attending Attestation I examined this patient and my medical decision-making was reviewed with the Resident Physician Dr Alejo. I agree with the documented findings, disposition and treatment plan as described except to the extent set forth below. Mr Joseph was admitted for acute copde and and acute on chronic RF. He was initially on bipap but now is on o2 nc. awake, standing, at bedside. He is comfortable on o2 nc though he states he doesn't want to sit bc his breathing is easier standing Denies orthopnea, pnd, + wheezing, cough and yellow sputum. gen- alert, awake,appears stated age, standing at bedside eyes- pupils equal round cv- reg rate and rhythm, normal s1,s2, no murmurs appreciated, no le edema lungs- diminished throughout, scattered exp wheezing, no rhonchi or crackles neuro- AAOx3, CN grossly intact Acute on Chronic Hypercarbic resp failure 2/2 copd exacerbation CXR neg - repeat abg improved, on o2 nc now, cont levaquin, nebs, iv steroids, nocturnal bipap and prn STable chronic diastolic chf stable cAD - echo 07/03 ef 50-55%, bnp and trop neg on admit, cont home meds: asa, statin, plavix, lasix, hydralazine, labetalol, lisinopril DM- ssi and accu checks HTN- cont home meds, cont to monitor, u titrate as needed further diagnoses and plan as documented by resident <Glenn Alejo - Last Filed: 08/05/18 13:18> (3) CHF (congestive heart failure) Qualifiers: Heart failure type: diastolic Heart failure chronicity: chronic Qualified Code(s): I50.32 - Chronic diastolic (congestive) heart failure (4) CAD (coronary artery disease) Qualifiers: Coronary Disease-Associated Artery/Lesion type: [place] artery [place] vs. transplanted heart: [place] heart Associated angina: without angina Qualified Code(s): I25.10 - Atherosclerotic heart disease of [place] coronary artery without angina pectoris (5) Diabetes mellitus Qualifiers: Diabetes mellitus type: type 2 Diabetes mellitus long-term insulin use: unspecified long-term insulin use status Diabetes mellitus complication status: with unspecified complications Qualified Code(s): E11.8 - Type 2 diabetes mellitus with unspecified complications (6) HTN (hypertension) Qualifiers: Hypertension type: essential hypertension Qualified Code(s): I10 - Essential (primary) hypertension (9) Chronic kidney disease (CKD) Qualifiers: Chronic kidney disease stage: unspecified stage Qualified Code(s): N18.9 - Chronic kidney disease, unspecified <Joellen Marques - Last Filed: 08/05/18 19:31> (1) HTN (hypertension) Qualifiers: Hypertension type: essential hypertension Qualified Code(s): I10 - Essential (primary) hypertension (4) Diabetes mellitus Qualifiers: Diabetes mellitus type: type 2 Diabetes mellitus long-term insulin use: 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 transplanted heart: [place] heart Associated angina: without angina Qualified Code(s): I25.10 - Atherosclerotic heart disease of [place] coronary artery without angina pectoris (8) CHF (congestive heart failure) Qualifiers: Heart failure type: diastolic Heart failure chronicity: chronic Qualified Code(s): I50.32 - Chronic diastolic (congestive) heart failure (9) Chronic kidney disease (CKD) Qualifiers: Chronic kidney disease stage: unspecified stage Qualified Code(s): N18.9 - Chronic kidney disease, unspecified
[2018-08-05] MEDS: *HR* LORazepam 1 MG TABLET PO SCH (20:01)
[2018-08-05] MEDS: Melatonin 3 MG TABLET PO SCH (20:01)
[2018-08-06] MEDS: Ipratropium/Albuterol Neb 3 ML IH SCH ×5 (03:54→20:55)
[2018-08-06] MEDS: MethylPREDNISolone 40 MG/ML VIAL IVP SCH (05:03)
[2018-08-06] MEDS: *HR* Enoxaparin 40 MG/0.4 ML SYRINGE SQ SCH (05:03)
[2018-08-06 05:11] LABS: Basophils % 0.1 %; Hematocrit 35.2 % (37.5-50.1); Hemoglobin 11.4 g/dL (12.9-16.9); Lymphocytes # 0.8 K/mcL (0.6-4.6); Lymphocytes % 3.8 %; Mean Corpuscular HGB Conc 32.4 g/dL (31.6-35.5); Mean Corpuscular Hemoglobin 28.9 pg (28.0-33.3); Mean Corpuscular Volume 89.3 fL (83.0-100.0); Mean Platelet Volume 9.7 fL (9.4-12.4); Monocytes # 0.6 K/mcL (0.0-1.3); Monocytes % 2.9 %; Neutrophils # 19.4 K/mcL (1.6-8.9); Platelet Count 360 K/mcL (140-400); Red Blood Count 3.94 M/mcL (4.19-5.50); Red Cell Distribution Width 13.7 % (11.5-14.5); Segmented Neutrophils % 92.2 %
[2018-08-06 05:29] LABS: Calcium 9.4 mg/dL (8.6-10.3); Potassium 4.5 mEq/L (3.5-5.1)
--- NOTE | 2018-08-06 08:04 | Electrocardiograph Report ---
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
--- NOTE | 2018-08-06 08:05 | Electrocardiograph Report ---
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
[2018-08-06] MEDS ORDERED: Levofloxacin 750 MG/150 ML 750 MG/150 ML BAG IVPB SCH (09:00)
[2018-08-06] MEDS: hydrALAZINE 25 MG TABLET PO SCH ×3 (09:13→20:34)
[2018-08-06] MEDS: Furosemide 40 MG TABLET PO SCH (09:13)
[2018-08-06] MEDS: Lisinopril 20 MG TABLET PO SCH (09:14)
[2018-08-06] MEDS: Multivit/Ca/Min/Fe/FA 1 TAB TABLET PO SCH (09:14)
[2018-08-06] MEDS: Aspirin Enteric Coated 81 MG Tablet PO SCH (09:14)
[2018-08-06] MEDS: Insulin LISPRO 300 UNITS/3 ML VIAL SQ SCH ×4 (09:15→20:39)
--- NOTE | 2018-08-06 10:16 | Internal Med Progress Note ---
<Glenn Alejo - Last Filed: 08/06/18 16:24> Hospitalist Progress Note - Encounter Date of Encounter: 08/06/18 Time of Encounter: 10:14 - Subjective Interval History: Patient in no acute distress, no acute events overnight. He is standing and leaning us about oriented on room dislike yesterday he states he is more comfortable this way but that if I did ask him to sit in the chair or walk across the room he would be comfortable with that without terrible shortness of breath. He states his shortness of breath is better today and overall he appears better than yesterday. He denies chest pain, fever or chills. - Exam Vitals: Temp Pulse Resp BP Pulse Ox 97.8 F 80 18 147/68 97 08/06/18 07:24 08/06/18 07:24 08/06/18 07:55 08/06/18 07:24 08/06/18 07:55 Exam: Patient in no acute distress, standing next to bed and tripoding, states he is more comfortable that way Normal affect, alert and oriented 3 Cranial nerves II through XII intact Heart in regular rate and rhythm without murmur or gallop Lungs diminished throughout with minimal left lower lobe wheeze, rhonchi cleared with cough Abdomen soft and nontender with normal bowel sounds present Bilateral lower extremities 1+ nonpitting edematous Skin warm and dry - Assessment and Plan (1) Acute exacerbation of chronic obstructive airways disease Current Visit: Yes Status: Acute Assessment and Plan: Patient presented 08/04 with new onset shortness of breath, worsened productive cough Patient has history of COPD with exacerbations and recent history of hosp italization for pneumonia Patient uses O2 and nebulizers at home which were not helpful Patient was admitted and started on IV steroids, BiPAP, bronchodilators, IV Levaquin Patient had elevated white count and there was a concern for infection however the patient has been afebrile and without other signs of infection or signs of pneumonia on chest x-ray, patient is hemodynamically stable Last ABG this significantly improved from admission Respiratory status is significantly improved and the patient is saturating and ventilating well on 5 L nasal cannula Patient has significantly improved clinically Plan Continue IV systemic corticosteroids to 60mg PO prednisone daily, continue bronchodilator therapy as well as BiPAP, IV Levaquin day 2 Ordered pulmonary function testing prior to discharge to assess for the need for home BiPAP Patient would also benefit from outpatient follow-up with pulmonology (2) Acute on chronic respiratory failure with hypercapnia Current Visit: Yes Status: Acute Assessment and Plan: Plan as seen above (3) CHF (congestive heart failure) Current Visit: Yes Status: Chronic Assessment and Plan: Patient with chronic diastolic CHF ECHO from 06/2018 noted for mild LVDD, EF 50-55% , no significant valvular dysfunction Chest x-ray on admission was negative for signs of pulmonary edema or effusion Respiratory status has clinically improved, no signs of exacerbation Continue home dose of lasix 40 mg by mouth daily Creatinine has slightly increased since admission, we will reassess in AM and hold furosemide if necessary (4) CAD (coronary artery disease) Current Visit: Yes Status: Chronic Assessment and Plan: Continue home Plavix and Lipitor, no suspicion for ACS (5) Diabetes mellitus Current Visit: Yes Status: Chronic Assessment and Plan: Corrective low-dose sliding scale insulin protocol and diabetic diet with every 6 and before meals at bedtime Accu-Cheks (6) HTN (hypertension) Current Visit: Yes Status: Chronic Assessment and Plan: continue home labetalol and lisinopril (7) Tobacco abuse Current Visit: Yes Status: Chronic Assessment and Plan: Patient was informed that smoking cessation is the primary method to prevent further COPD exacerbations and hospitalizations (8) DVT prophylaxis Current Visit: Yes Status: Acute Assessment and Plan: 40 mg subcutaneous Lovenox daily (9) Chronic kidney disease (CKD) Current Visit: Yes Status: Chronic Assessment and Plan: Patient's creatinine at admission was 1.87 and is 2.12 today Based on previous admissions this appears to be baseline Plan to closely monitor kidney function and avoid nephrotoxins and renally dose medications Will hold furosemide if it continues to trend upwards - Time Spent with Patient Total time spent is greater than 50% in coordination of care (as documented) at patient's floor/unit and/or counseling patient: Internal Medicine: Result - Labs CBC & Chem 7: 08/06/18 04:09 08/06/18 04:09 Labs: Short CBC 08/06/18 Range/Units 04:09 WBC 21.1 H (4.3-11.1) K/mcL Hgb 11.4 L (12.9-16.9) g/dL Hct 35.2 L (37.5-50.1) % Plt Count 360 (140-400) K/mcL Neutrophils # 19.4 H (1.6-8.9) K/mcL BMP 08/06/18 04:09 Sodium 134 L Potassium 4.5 Chloride 94 L Carbon Dioxide 33 H BUN 52 H Creatinine 2.12 H Glucose 218 H Calcium 9.4 - ABG Interpretation ABG results: ABG ABG pH 7.39 pH Units (7.32-7.45) 08/05/18 08:55 ABG pCO2 62 mmHg (35-45) H 08/05/18 08:55 ABG pO2 59 mmHg (85-104) L 08/05/18 08:55 ABG O2 Saturation 89 % (95-98) L 08/05/18 08:55 Consult Discharge Plan - Plan Referrals: Madelaine Russell CNP [Primary Care Provider] - 08/12/18 10:00 am <Andrea Brown - Last Filed: 08/06/18 16:41> Hospitalist Progress Note - Encounter Date of Encounter: 08/06/18 - Exam Vitals: Temp Pulse Resp BP Pulse Ox 97.9 F 79 19 137/81 97 08/06/18 11:58 08/06/18 11:58 08/06/18 16:25 08/06/18 11:58 08/06/18 16:25 - Assessment and Plan (1) HTN (hypertension) Current Visit: Yes Status: Chronic (2) Tobacco abuse Current Visit: Yes Status: Chronic (3) DVT prophylaxis Current Visit: Yes Status: Acute (4) Diabetes mellitus Current Visit: Yes Status: Chronic (5) CAD (coronary artery disease) Current Visit: Yes Status: Chronic (6) Acute on chronic respiratory failure with hypercapnia Current Visit: Yes Status: Acute (7) Acute exacerbation of chronic obstructive airways disease Current Visit: Yes Status: Acute (8) CHF (congestive heart failure) Current Visit: Yes Status: Chronic (9) Chronic kidney disease (CKD) Current Visit: Yes Status: Chronic - Time Spent with Patient Total time spent is greater than 50% in coordination of care (as documented) at patient's floor/unit and/or counseling patient: Internal Medicine: Result - Labs CBC & Chem 7: 08/06/18 04:09 08/06/18 04:09 Labs: Short CBC 08/06/18 Range/Units 04:09 WBC 21.1 H (4.3-11.1) K/mcL Hgb 11.4 L (12.9-16.9) g/dL Hct 35.2 L (37.5-50.1) % Plt Count 360 (140-400) K/mcL Neutrophils # 19.4 H (1.6-8.9) K/mcL BMP 08/06/18 04:09 Sodium 134 L Potassium 4.5 Chloride 94 L Carbon Dioxide 33 H BUN 52 H Creatinine 2.12 H Glucose 218 H Calcium 9.4 - ABG Interpretation ABG results: ABG ABG pH 7.39 pH Units (7.32-7.45) 08/05/18 08:55 ABG pCO2 62 mmHg (35-45) H 08/05/18 08:55 ABG pO2 59 mmHg (85-104) L 08/05/18 08:55 ABG O2 Saturation 89 % (95-98) L 08/05/18 08:55 - Attending Attestation I examined this patient and my medical decision-making was reviewed with the Resident Physician on 08/06/18. I agree with the documented findings, disposition and treatment plan as described except to the extent set forth below. Mr Joseph is currently admitted for acute respiratory failure due to COPD exacerbation. He remains moderate to high risk due to potential for worsening clinical status. Mr Joseph feels he is breathing better today. He is not back to baseline. No fever or chills. Walking in room some. No GI issues. Exam Alert Comfortable standing by bed Mucus membranes dry Heart reg and not tachy at this time Lungs diminished. No wheeze or rales Abd soft. No edema Moves all extremities. I/P 1. Hypoxic hypercarbic resp failure - bipap study tonight. 2. COPD exac - change to PO steroids Anticipate d/c tomorrow. Further diagnoses and plan as above. <Glenn Alejo - Last Filed: 08/06/18 16:24> (3) CHF (congestive heart failure) Qualifiers: Heart failure type: diastolic Heart failure chronicity: chronic Qualified Code(s): I50.32 - Chronic diastolic (congestive) heart failure (4) CAD (coronary artery disease) Qualifiers: Coronary Disease-Associated Artery/Lesion type: [place] artery [place] vs. transplanted heart: [place] heart Associated angina: without angina Qualified Code(s): I25.10 - Atherosclerotic heart disease of [place] coronary artery without angina pectoris (5) Diabetes mellitus Qualifiers: Diabetes mellitus type: type 2 Diabetes mellitus heel attacher insulin use: unspecified heel attacher insulin use status Diabetes mellitus complication status: with unspecified complications Qualified Code(s): E11.8 - Type 2 diabetes mellitus with unspecified complications; N18.3 - Chronic kidney disease, stage 3 (moderate) (6) HTN (hypertension) Qualifiers: Hypertension type: essential hypertension Qualified Code(s): I10 - Essential (primary) hypertension (9) Chronic kidney disease (CKD) Qualifiers: Chronic kidney disease stage: unspecified stage Qualified Code(s): N18.9 - Chronic kidney disease, unspecified <Andrea Brown - Last Filed: 08/06/18 16:41> (1) HTN (hypertension) Qualifiers: Hypertension type: essential hypertension Qualified Code(s): I10 - Essential (primary) hypertension (4) Diabetes mellitus Qualifiers: Diabetes mellitus type: type 2 Diabetes mellitus fdc insulin use: without heel attacher use Diabetes mellitus complication status: with kidney complications Diabetes mellitus complication detail: with chronic kidney disease Chronic kidney disease stage: stage 3 (moderate) Qualified Code(s): E11.22 - Type 2 diabetes mellitus with diabetic chronic kidney disease; N18.3 - Chronic kidney disease, stage 3 (moderate) (5) CAD (coronary artery disease) Qualifiers: Coronary Disease-Associated Artery/Lesion type: [place] artery [place] vs. transplanted heart: [place] heart Associated angina: without angina Qualified Code(s): I25.10 - Atherosclerotic heart disease of [place] coronary artery without angina pectoris (8) CHF (congestive heart failure) Qualifiers: Heart failure type: diastolic Heart failure chronicity: chronic Qualified Code(s): I50.32 - Chronic diastolic (congestive) heart failure (9) Chronic kidney disease (CKD) Qualifiers: Chronic kidney disease stage: stage 3 (moderate) Qualified Code(s): N18.3 - Chronic kidney disease, stage 3 (moderate)
[2018-08-06] MEDS: predniSONE 20 MG TABLET PO SCH (12:22)
[2018-08-06] MEDS: hydrOXYzine pamoate 25 MG CAPSULE PO PRN ×2 (16:10→20:34)
[2018-08-06] MEDS: *HR* LORazepam 1 MG TABLET PO SCH (20:35)
[2018-08-06] MEDS: Melatonin 3 MG TABLET PO SCH (20:35)
[2018-08-07] MEDS: Ipratropium/Albuterol Neb 3 ML IH SCH ×4 (00:47→11:37)
[2018-08-07 04:45] LABS: Basophils % 0.2 %; Hematocrit 34.5 % (37.5-50.1); Hemoglobin 11.3 g/dL (12.9-16.9); Immature Granulocytes % 1.2 % (0-4); Lymphocytes # 1.1 K/mcL (0.6-4.6); Lymphocytes % 5.6 %; Mean Corpuscular HGB Conc 32.8 g/dL (31.6-35.5); Mean Corpuscular Hemoglobin 29.4 pg (28.0-33.3); Mean Corpuscular Volume 89.6 fL (83.0-100.0); Mean Platelet Volume 9.5 fL (9.4-12.4); Monocytes # 1.2 K/mcL (0.0-1.3); Monocytes % 5.7 %; Neutrophils # 17.9 K/mcL (1.6-8.9); Platelet Count 373 K/mcL (140-400); Red Blood Count 3.85 M/mcL (4.19-5.50); Red Cell Distribution Width 13.8 % (11.5-14.5); Segmented Neutrophils % 87.3 %
[2018-08-07 05:03] LABS: Calcium 9.4 mg/dL (8.6-10.3); Potassium 4.1 mEq/L (3.5-5.1)
[2018-08-07] MEDS: *HR* Enoxaparin 40 MG/0.4 ML SYRINGE SQ SCH (05:58)
[2018-08-07] MEDS: Lisinopril 20 MG TABLET PO SCH (08:14)
[2018-08-07] MEDS: predniSONE 20 MG TABLET PO SCH (08:14)
[2018-08-07] MEDS: Multivit/Ca/Min/Fe/FA 1 TAB TABLET PO SCH (08:14)
[2018-08-07] MEDS: Furosemide 40 MG TABLET PO SCH (08:14)
[2018-08-07] MEDS: hydrALAZINE 25 MG TABLET PO SCH (08:15)
[2018-08-07] MEDS: Insulin LISPRO 300 UNITS/3 ML VIAL SQ SCH (08:15)
[2018-08-07] MEDS: Aspirin Enteric Coated 81 MG Tablet PO SCH (08:15)
--- NOTE | 2018-08-07 10:43 | Discharge Summary ---
<Glenn Alejo Katelynn - Last Filed: 08/07/18 18:31> - NOTES TO OUTPATIENT PROVIDER Notes to Outpatient Provider: Mr. Rizo was admitted and treated for COPD exacerbation with IV steroids, BiPAP, and bronchodilators. Transitioned to oral steroids. He requested to be qualified for BiPAP which he failed as he has in the past. I informed him that the best way to prevent repeated hospitalization for COPD exacerbation is smoking cessation. He stated he has tried, and is trying, but that he can't do it on his own and desperately needs help. I understand he has been offered treatment in the past that failed, he would benefit from re-broaching the subject. Orders not resulted at time of discharge: Pending orders 08/04/18 07:22 Culture,Blood [BC] Stat Date of Encounter: 08/07/18 Time of Encounter: 10:40 - Discharge Diagnosis (1) Acute exacerbation of chronic obstructive airways disease Priority: Primary Status: Acute Assessment and Plan: Patient presented 08/04 with new onset shortness of breath, worsened productive cough Patient has history of COPD with exacerbations and recent history of hospitalization for pneumonia Patient uses O2 and nebulizers at home which were not helpful Patient was admitted and started on IV steroids, BiPAP, bronchodilators, IV Levaquin Patient had elevated white count and there was a concern for infection however the patient has been afebrile and without other signs of infection or signs of pneumonia on chest x-ray, patient is hemodynamically stable Last ABG is significantly improved from admission Respiratory status is significantly improved and the patient is saturating and ventilating well on 2 L nasal cannula which he uses at home Patient has significantly improved clinically and was transitioned to oral steroids and antibiotics Patient failed BiPAP qualification I informed the patient that without smoking cessation he will continue to have exacerbations and be hospitalized. He got very upset and we had a long discussion. He would like to quit but cant on his own and feels that no one will help him. He repeatedly stated that because he is so stressed he will leave the hospital and immediately have a cigarette. I am afraid that despite his recovery during this admission he will be re-admitted quickly due to smoking. I have discussed in the discharge with his PCP that he would greatly benefit from renewed trials of cessation treatments. Plan Discharge on home bronchodilators and oral steroids and oral antibiotics and home O2 oral prednisone taper 60mg x 3days, 40mg x 5days, 20mg x5days, 10mg x 5days oral levofloxacin 750mg daily x5days Follow up with PCP (2) Acute on chronic respiratory failure with hypercapnia Priority: Secondary Status: Acute Assessment and Plan: Plan as seen above (3) CHF (congestive heart failure) Priority: Secondary Status: Chronic Assessment and Plan: Patient with chronic diastolic CHF ECHO from 06/2018 noted for mild LVDD, EF 50-55% , no significant valvular dysfunction Chest x-ray on admission was negative for signs of pulmonary edema or effusion Respiratory status has clinically improved, no signs of exacerbation Home dose of lasix 40mg PO given during hospitalization, continue at discharge Qualifiers: Heart failure type: diastolic Heart failure chronicity: chronic Qualified Code(s): I50.32 - Chronic diastolic (congestive) heart failure (4) CAD (coronary artery disease) Priority: Secondary Status: Chronic Assessment and Plan: Continue home Plavix and Lipitor, no suspicion for ACS Qualifiers: Coronary Disease-Associated Artery/Lesion type: [place] artery [place] vs. transplanted heart: [place] heart Associated angina: without angina Qualified Code(s): I25.10 - Atherosclerotic heart disease of [place] coronary artery without angina pectoris (5) Diabetes mellitus Priority: Secondary Status: Chronic Assessment and Plan: Corrective low-dose sliding scale insulin protocol and diabetic diet with every 6 and before meals at bedtime Accu-Cheks during hospitalization Discharge on home medications Qualifiers: Diabetes mellitus type: type 2 Diabetes mellitus assisted insulin use: without assisted use Diabetes mellitus complication status: with kidney complications Diabetes mellitus complication detail: with chronic kidney disease Chronic kidney disease stage: stage 3 (moderate) Qualified Code(s): E11.22 - Type 2 diabetes mellitus with diabetic chronic kidney disease; N18.3 - Chronic kidney disease, stage 3 (moderate) (6) HTN (hypertension) Priority: Secondary Status: Chronic Assessment and Plan: continue home labetalol and lisinopril Qualifiers: Hypertension type: essential hypertension Qualified Code(s): I10 - Essential (primary) hypertension (7) Tobacco abuse Priority: Secondary Status: Chronic Assessment and Plan: Patient was informed that smoking cessation is the primary method to prevent further COPD exacerbations and hospitalizations Rest of plan as seen above (8) DVT prophylaxis Priority: Secondary Status: Resolved Assessment and Plan: 40 mg subcutaneous Lovenox daily during hospitalization, discontinued at discharge (9) Chronic kidney disease (CKD) Priority: Secondary Status: Chronic Assessment and Plan: Patient's creatinine at admission was 1.87 Based on previous admissions this appears to be baseline Closely monitored kidney function and avoided nephrotoxins and renally dosed medications during hospitalization Creatinine stable at baseline at discharge, send home on home dose lasix 40mg PO Daily Qualifiers: Chronic kidney disease stage: stage 3 (moderate) Qualified Code(s): N18.3 - Chronic kidney disease, stage 3 (moderate) Hospital course: Mr. Joseph is a 62 year old male with PMH of chronic respiratory failure on home oxygen, CKD III, tobacco abuse, COPD, coronary artery disease, hypertension, diabetes and anxiety disorder presented to the emergency room with complaints of shortness of breath. On presentation, he was found in significant respiratory distress and placed on BIPAP with multiple duonebs and steroid administration.Patient had elevated white count and there was a concern for infection however the patient was been afebrile and without other signs of infection or signs of pneumonia on chest x-ray. Patient was admitted and started on IV steroids, BiPAP, bronchodilators, IV Levaquin. Over the next three days the patient significantly improved and was able to be de-escalated to oral steroids and antibiotics. He failed BiPAP qualification and we had a long discussion about how smoking cessation is the main way for him to stay out of the hospital. He was discharged on oral steroids and antibiotics with PCP follow up for post hospital check up and smoking cessation. Discharge discussed with: patient Time spent discussing smoking cessation with patient: more than 10 minutes - Time Spent with Patient Total time spent providing and/or coordinating discharge services: Greater than 30 minutes - Discharge Medications Prescriptions: levoFLOXacin [Levofloxacin] 750 mg PO DAILY 5 Days #5 tablet predniSONE [PredniSONE] See Taper PO DAILY 16 Days #26 tablet Home Medications: RX: Albuterol Sulfate [Ventolin Hfa] 2 puff IH Q4H PRN 03/17/17 [History] RX: Aspirin [Lo-Dose Aspirin EC] 81 mg PO DAILY 03/29/17 [History] RX: Clopidogrel [Plavix] 75 mg PO DAILY 03/29/17 [History] RX: Metformin HCl [Metformin HCl ER] 500 mg PO BID 03/29/17 [History] RX: Fluticasone/Salmeterol [Advair Hfa 230-21 Mcg Inhaler] 2 puff IH BID #1 [id number].[email or web address] 10/21/17 [Rx] RX: hydrALAZINE [HydrALAZINE] 25 mg PO Q8HR #90 tablet 10/21/17 [Rx] RX: Furosemide [Lasix] 40 mg PO DAILY 06/30/18 [History] RX: Atorvastatin [Lipitor] 20 mg PO HS 07/01/18 [History] RX: Docusate [Colace] 100 mg PO DAILY PRN 07/01/18 [History] RX: LORazepam [Ativan] 1 mg PO HS 07/01/18 [History] RX: Melatonin 10 mg PO HS 07/01/18 [History] RX: Tiotropium Br/Olodaterol HCl [Stiolto Respimat Inhal [place]] 2 puff IH DAILY 07/01/18 [History] RX: Lisinopril [Zestril] 20 mg PO DAILY #30 tablet 07/04/18 [Rx] RX: Labetalol HCl 300 mg PO BID 08/04/18 [History] RX: Multivitamin [One Daily Essential] 1 tab PO DAILY 08/04/18 [History] levoFLOXacin [Levofloxacin] 750 mg PO DAILY 5 Days #5 tablet 08/07/18 [Rx] predniSONE [PredniSONE] See Taper PO DAILY 16 Days #26 tablet 08/07/18 [Rx] Allergies/Adverse Reactions: Allergy/AdvReac Type Severity Reaction Status Date / Time Penicillins Allergy Hives Verified 07/01/18 12:14 Sulfa (Sulfonamide Allergy Hives Verified 07/01/18 12:14 Antibiotics) Date of admission: 08/04/18 08:58 Primary care physician: Madelaine Russell CNP Consults: 08/04/18 09:07 Consult to Nurse Navigator [CONS] Routine Comment: 08/04/18 11:03 Consult to Pastoral Services [CONS] Routine Comment: Discharging clinician: Glenn Alejo - Constitutional Vitals: Temp Pulse Resp BP Pulse Ox 97.9 F 90 18 132/65 92 08/07/18 07:18 08/07/18 07:18 08/07/18 07:37 08/07/18 07:18 08/07/18 09:45 General appearance: Present: A&O X 3 Exam: Patient in no acute distress, sitting in chair Saturating in 90s on 2L nasal cannula Normal affect, alert and oriented 3 Cranial nerves II through XII intact Heart in regular rate and rhythm without murmur or gallop Lungs diminished throughout with minimal left lower lobe wheeze, rhonchi cleared with cough Abdomen soft and nontender with normal bowel sounds present Bilateral lower extremities 1+ nonpitting edematous Skin warm and dry - Patient Status Disposition: Home, Self-Care Condition: Fair Functional capacity at discharge: independent ambulation Overall status at discharge: patient is progressing back to baseline - Discharge Instructions Instructions: Prednisone (By mouth), Levofloxacin (By mouth), Heart Failure (DC), Acute Respiratory Distress Syndrome (DC), Chronic Obstructive Pulmonary Disease (DC) Follow Up With: Madelaine Russell CNP [Primary Care Provider] - 08/12/18 10:00 am - Diet and Activity Activity: increase activity as tolerated, wear oxygen at night Diet: advance to your usual diet <Andrea Brown - Last Filed: 08/07/18 20:20> Orders not resulted at time of discharge: Pending orders 08/04/18 07:22 Culture,Blood [] Stat Date of Encounter: 08/07/18 - Discharge Diagnosis (1) HTN (hypertension) Status: Chronic Qualifiers: Hypertension type: essential hypertension Qualified Code(s): I10 - Essential (primary) hypertension (2) Tobacco abuse Status: Chronic (3) DVT prophylaxis Status: Resolved (4) Diabetes mellitus Status: Chronic Qualifiers: Diabetes mellitus type: type 2 Diabetes mellitus assisted insulin use: without terminal gauger supervisor use Diabetes mellitus complication status: with kidney complications Diabetes mellitus complication detail: with chronic kidney disease Chronic kidney disease stage: stage 3 (moderate) Qualified Code(s): E11.22 - Type 2 diabetes mellitus with diabetic chronic kidney disease; N18.3 - Chronic kidney disease, stage 3 (moderate) (5) CAD (coronary artery disease) Status: Chronic Qualifiers: Coronary Disease-Associated Artery/Lesion type: [place] artery [place] vs. transplanted heart: [place] heart Associated angina: without angina Qualified Code(s): I25.10 - Atherosclerotic heart disease of [place] coronary artery without angina pectoris (6) Acute on chronic respiratory failure with hypercapnia Status: Acute (7) Acute exacerbation of chronic obstructive airways disease Status: Acute (8) CHF (congestive heart failure) Status: Chronic Qualifiers: Heart failure type: diastolic Heart failure chronicity: chronic Qualified Code(s): I50.32 - Chronic diastolic (congestive) heart failure (9) Chronic kidney disease (CKD) Status: Chronic Qualifiers: Chronic kidney disease stage: stage 3 (moderate) Qualified Code(s): N18.3 - Chronic kidney disease, stage 3 (moderate) Hospital course: Mr. Joseph is a 62 year old male - Time Spent with Patient Total time spent providing and/or coordinating discharge services: 37min Date of admission: 08/04/18 08:58 Primary care physician: Madelaine Russell CNP Consults: 08/04/18 09:07 Consult to Nurse Navigator [CONS] Routine Comment: 08/04/18 11:03 Consult to Pastoral Services [CONS] Routine Comment: - Constitutional Vitals: Temp Pulse Resp BP Pulse Ox 97.9 F 95 26 106/62 94 08/07/18 08:15 08/07/18 11:34 08/07/18 11:38 08/07/18 11:34 08/07/18 11:38 - Attending Attestation I examined this patient and my medical decision-making was reviewed with the Resident Physician on 08/07/18. I agree with the documented findings, disposition and treatment plan as described except to the extent set forth below. Mr Joseph has been admitted for acute exac COPD. He has responded to current treatment. He is now afebrile and ready for discharge home. Exam alert comfortable Mucus membranes dry Heart distant Some wheeze present Abd soft Plan D/C home today.
[2018-08-07 11:36] VITALS: BP 106/62
== END 2018-08-07 12:27 | disposition home or self-care (01) | DRG 189 ==
LOC: EMEROOARM 05:35 → 2NNU 08:58 → SUATTDRO 08:58 → 2NNU 10:15
PROVIDERS: ADMIT Internal Medicine; ATTEND Internal Medicine

== ENCOUNTER 2019-11-25 16:49 | Inpatient (IN) ==
[2019-11-25] MEDS ORDERED: Aspirin 81 MG TAB.CHEW PO ONE (17:02)
[2019-11-25] MEDS ORDERED: Ipratropium/Albuterol Neb 3 ML IH ONE (17:18)
[2019-11-25] MEDS ORDERED: methylPREDNISolone 125 MG/2 ML VIAL IVP ONE (17:18)
[2019-11-25 17:38] LABS: Basophils % 0.1 %; Hematocrit 45.1 % (37.5-50.1); Hemoglobin 14.1 g/dL (12.9-16.9); Immature Granulocytes % 0.3 % (0-4); Lymphocytes # 0.6 K/mcL (0.6-4.6); Lymphocytes % 4.3 %; Mean Corpuscular HGB Conc 31.3 g/dL (31.6-35.5); Mean Corpuscular Hemoglobin 29.7 pg (28.0-33.3); Mean Corpuscular Volume 94.9 fL (83.0-100.0); Mean Platelet Volume 9.6 fL (9.4-12.4); Monocytes # 0.3 K/mcL (0.0-1.3); Monocytes % 1.9 %; Neutrophils # 13.6 K/mcL (1.6-8.9); Platelet Count 431 K/mcL (140-400); Red Blood Count 4.75 M/mcL (4.19-5.50); Red Cell Distribution Width 13.5 % (11.5-14.5); Segmented Neutrophils % 93.4 %; White Blood Count 14.6 K/mcL (4.3-11.1)
[2019-11-25 17:53] LABS: INR 0.9; Prothrombin Time 9.7 Seconds (9.4-12.1)
[2019-11-25 17:55] LABS: Albumin 4.9 g/dL (3.5-5.7); Albumin/Globulin Ratio 1.3 (1.1-2.2); Bilirubin,Direct 0.1 mg/dL (0.0-0.2); Bilirubin,Indirect 0.3 mg/dL (0.0-1.0); Bilirubin,Total 0.4 mg/dL (0.3-1.0); Globulin 3.7 g/dL (2.4-3.5); Total Protein 8.6 g/dL (6.4-8.9)
[2019-11-25 17:55] LABS: BUN/Creatinine Ratio 20 (6-26); Blood Urea Nitrogen 41 mg/dL (8-23); Calcium 10.2 mg/dL (8.6-10.3); Carbon Dioxide 31 mEq/L (23-29); Chloride 96 mEq/L (98-107); Glucose 158 mg/dL (70-105); Osmolality,Calculated 299 (280-300); Potassium 4.1 mEq/L (3.5-5.1); Sodium 138 mEq/L (136-145); eGFR For African Americans 39 (> 60); eGFR For Non-African Americans 32 (> 60)
[2019-11-25 17:56] LABS: Activated Partial Thrombo Time 30.7 Seconds (26.0-36.0)
[2019-11-25 17:56] LABS: Troponin I < 0.03 ng/mL (< 0.04)
[2019-11-25] MEDS ORDERED: cefTRIAXone 1,000 MG in Water for inj. (sterile) 10 ML IVP ONE (18:53)
[2019-11-25] MEDS ORDERED: Azithromycin 500 MG in 0.9 % Sodium Chloride 250 ML IVPB ONE (18:53)
[2019-11-25] MEDS ORDERED: Furosemide 40 MG/4 ML VIAL IVP ONE (18:53)
[2019-11-25] MEDS ORDERED: Naloxone 0.4 MG/ML INJ IVP PRN (20:24)
[2019-11-25] MEDS ORDERED: Nicotine 2 MG GUM BC PRN (20:24)
[2019-11-25] MEDS ORDERED: *HR* Dextrose 50 % in Water (Syg) 50 ML SYRINGE IVP PRN (20:24)
[2019-11-25] MEDS ORDERED: Dextrose Gel 15 GM/37.5 ML TUBE PO PRN ×2 (20:24)
[2019-11-25] MEDS ORDERED: D5% in Water 1,000 ML IVC PRN (20:24)
[2019-11-25] MEDS ORDERED: Albuterol 2.5 MG/3 ML NEBULIZER IH PRN (20:24)
[2019-11-25 20:59] LABS: VBG HCO3 32 mEq/L (21-27); VBG PCO2 52 mmHg (41-51); VBG PO2 121 mmHg (25-50)
[2019-11-25] MEDS: Ipratropium/Albuterol Neb 3 ML IH SCH (22:32)
[2019-11-25 23:13] LABS: Bilirubin,Urine Negative (Negative); Blood,Urine Negative (Negative); Clarity,Urine Clear (Clear); Color,Urine Yellow (Yellow); Glucose,Urine (UA) Normal (Normal); Ketones,Urine Negative (Negative); Leukocyte Esterase,Urine Negative (Negative); Nitrite,Urine Negative (Negative); Protein,Urine Negative (Neg-Trace); Specific Gravity,Urine 1.014 (1.010-1.025); Urobilinogen,Urine Normal (Normal)
[2019-11-26 00:42] LABS: Basophils % 0.1 %; Hematocrit 38.2 % (37.5-50.1); Immature Granulocytes % 0.5 % (0-4); Lymphocytes # 0.6 K/mcL (0.6-4.6); Lymphocytes % 5.1 %; Mean Corpuscular HGB Conc 30.9 g/dL (31.6-35.5); Mean Corpuscular Hemoglobin 28.9 pg (28.0-33.3); Mean Corpuscular Volume 93.6 fL (83.0-100.0); Mean Platelet Volume 9.6 fL (9.4-12.4); Monocytes # 0.1 K/mcL (0.0-1.3); Monocytes % 1.2 %; Neutrophils # 10.3 K/mcL (1.6-8.9); Platelet Count 374 K/mcL (140-400); Red Blood Count 4.08 M/mcL (4.19-5.50); Red Cell Distribution Width 13.3 % (11.5-14.5); Segmented Neutrophils % 93.1 %
[2019-11-26 00:45] LABS: Hemoglobin 11.8 g/dL (12.9-16.9)
[2019-11-26 00:48] LABS: INR 0.9; Prothrombin Time 10.5 Seconds (9.4-12.1)
[2019-11-26 01:02] LABS: Albumin/Globulin Ratio 1.3 (1.1-2.2); Bilirubin,Total 0.3 mg/dL (0.3-1.0); Calcium 9.3 mg/dL (8.6-10.3); Magnesium 1.9 mg/dL (1.6-2.6); Phosphorous 5.2 mg/dL (2.7-4.5)
[2019-11-26 01:15] LABS: Thyroid Stimulating Hormone 0.316 mcIU/mL (0.340-5.600)
[2019-11-26 01:51] LABS: Estimated Average Glucose 148 mg/dl
[2019-11-26] MEDS: Ipratropium/Albuterol Neb 3 ML IH SCH ×4 (03:37→22:08)
[2019-11-26 04:12] LABS: Immature Reticulocyte % 13.6 % (11.0-38.0); Retculocyte # 0.06 M/mcL (0.05-0.10); Reticulocyte % 1.4 % (1.6-2.8)
[2019-11-26 05:21] LABS: Adenovirus Not Detected (Not Detect); Bordetella Pertussis Not Detected (Not Detect); Chlamydophila pneumoniae Not Detected (Not Detect); Coronavirus 229E Not Detected (Not Detect); Coronavirus HKU1 Not Detected (Not Detect); Coronavirus NL63 Not Detected (Not Detect); Coronavirus OC43 Not Detected (Not Detect); Human Metapneumovirus Not Detected (Not Detect); Human Rhinovirus/Enterovirus Not Detected (Not Detect); Influenza A Subtype 2009 H1 Not Detected (Not Detect); Influenza B Not Detected (Not Detect); Mycoplasma pneumoniae Not Detected (Not Detect); Parainfluenza Virus 1 Not Detected (Not Detect); Parainfluenza Virus 2 Not Detected (Not Detect); Parainfluenza Virus 3 Not Detected (Not Detect); Parainfluenza Virus 4 Not Detected (Not Detect); Respiratory Syncytial Virus Not Detected (Not Detect)
[2019-11-26] MEDS: Insulin LISPRO 300 UNITS/3 ML VIAL SQ SCH ×5 (05:39→17:36)
[2019-11-26] MEDS: *HR* Heparin 5,000 UNIT/ML VIAL SQ SCH ×2 (05:39→16:55)
[2019-11-26] MEDS ORDERED: cefTRIAXone 1,000 MG in Water for inj. (sterile) 10 ML IVP SCH (09:00)
[2019-11-26] MEDS: predniSONE 20 MG TABLET PO SCH (09:45)
[2019-11-26] MEDS ORDERED: Azithromycin 250 MG TABLET PO SCH ×2 (11:00→19:00)
[2019-11-26] MEDS ORDERED: Dextrose Gel 15 GM/37.5 ML TUBE PO PRN ×2 (14:29)
[2019-11-26] MEDS ORDERED: *HR* Dextrose 50 % in Water (Syg) 50 ML SYRINGE IVP PRN (14:29)
[2019-11-26] MEDS ORDERED: D5% in Water 1,000 ML IVC PRN (14:29)
[2019-11-26] MEDS: Furosemide 40 MG TABLET PO SCH (16:15)
[2019-11-26] MEDS: lisinopriL 20 MG TABLET PO SCH (16:16)
[2019-11-26] MEDS: Pregabalin 25 MG CAPSULE PO SCH (16:16)
[2019-11-26] MEDS ORDERED: Melatonin 3 MG TABLET PO SCH (21:00)
[2019-11-26] MEDS ORDERED: *HR* LORazepam 1 MG TABLET PO SCH (21:00)
[2019-11-26] MEDS ORDERED: Insulin LISPRO 300 UNITS/3 ML VIAL SQ SCH (21:00)
[2019-11-26] MEDS: Budesonide/Formoterol 160/4.5 1 PUFF INH IH SCH (22:08)
[2019-11-27 02:37] LABS: Basophils % 0.2 %; Eosinophils % 0.2 %; Hematocrit 36.4 % (37.5-50.1); Hemoglobin 11.4 g/dL (12.9-16.9); Immature Granulocytes % 0.3 % (0-4); Lymphocytes % 17.3 %; Mean Corpuscular HGB Conc 31.3 g/dL (31.6-35.5); Mean Corpuscular Hemoglobin 29.1 pg (28.0-33.3); Mean Corpuscular Volume 92.9 fL (83.0-100.0); Mean Platelet Volume 9.6 fL (9.4-12.4); Monocytes % 8.4 %; Neutrophils # 8.6 K/mcL (1.6-8.9); Platelet Count 361 K/mcL (140-400); Red Blood Count 3.92 M/mcL (4.19-5.50); Red Cell Distribution Width 13.1 % (11.5-14.5); Segmented Neutrophils % 73.6 %; White Blood Count 11.6 K/mcL (4.3-11.1)
[2019-11-27 02:55] LABS: Calcium 9.3 mg/dL (8.6-10.3); Potassium 3.4 mEq/L (3.5-5.1)
[2019-11-27] MEDS: Ipratropium/Albuterol Neb 3 ML IH SCH ×2 (04:11→10:54)
[2019-11-27] MEDS: *HR* Heparin 5,000 UNIT/ML VIAL SQ SCH (05:18)
[2019-11-27 06:57] VITALS: BP 162/76
[2019-11-27] MEDS: Insulin LISPRO 300 UNITS/3 ML VIAL SQ SCH ×2 (07:29→11:13)
[2019-11-27] MEDS: Furosemide 40 MG TABLET PO SCH (07:38)
[2019-11-27] MEDS: Pregabalin 25 MG CAPSULE PO SCH (07:38)
[2019-11-27] MEDS: lisinopriL 20 MG TABLET PO SCH (07:38)
[2019-11-27] MEDS: predniSONE 20 MG TABLET PO SCH (07:38)
[2019-11-27] MEDS ORDERED: Aspirin Enteric Coated 81 MG Tablet PO SCH (09:00)
[2019-11-27] MEDS: Budesonide/Formoterol 160/4.5 1 PUFF INH IH SCH (10:54)
== END 2019-11-27 14:10 | disposition home or self-care (01) | DRG 189 ==
LOC: EMEROOARM 16:49 → SUATTDRO 20:38 → 2NENU 20:38
PROVIDERS: ADMIT Student in an Organized Health Care Education/Training Program; ATTEND Student in an Organized Health Care Education/Training Program

== ENCOUNTER 2021-01-13 15:35 | Inpatient (IN) ==
[~2021-01-13 15:35] MED LIST: *HR* Etomidate 20 MG/10 ML AMPUL IVP ONE; *HR* Rocuronium Bromide 50 MG/5 ML VIAL IVP ONE
[2021-01-13] MEDS ORDERED: methylPREDNISolone 125 MG/2 ML VIAL IVP ONE (15:50)
[2021-01-13] MEDS ORDERED: Piperacillin/Tazobactam 3.375 GM in Water for inj. (sterile) 20 ML IVP ONE (15:50)
[2021-01-13] MEDS ORDERED: Ipratropium/Albuterol Neb 3 ML IH ONE (15:50)
[2021-01-13] MEDS ORDERED: Cefepime HCl 1,000 MG in Water for inj. (sterile) 10 ML IVP STA (15:52)
[2021-01-13 16:00] LABS: Basophils # 0.1 K/mcL (0.0-0.2); Basophils % 0.5 %; Eosinophils # 0.5 K/mcL (0.0-0.6); Eosinophils % 2.9 %; Hematocrit 39.4 % (37.5-50.1); Hemoglobin 11.9 g/dL (12.9-16.9); Immature Granulocytes % 0.6 % (0-4); Lymphocytes # 3.9 K/mcL (0.6-4.6); Lymphocytes % 20.9 %; Mean Corpuscular HGB Conc 30.2 g/dL (31.6-35.5); Mean Corpuscular Hemoglobin 30.2 pg (28.0-33.3); Mean Platelet Volume 9.8 fL (9.4-12.4); Monocytes # 1.5 K/mcL (0.0-1.3); Monocytes % 7.9 %; Neutrophils # 12.6 K/mcL (1.6-8.9); Platelet Count 519 K/mcL (140-400); Red Blood Count 3.94 M/mcL (4.19-5.50); Red Cell Distribution Width 12.6 % (11.5-14.5); Segmented Neutrophils % 67.2 %; White Blood Count 18.8 K/mcL (4.3-11.1)
[2021-01-13] MEDS ORDERED: 0.9 % Sodium Chloride 500 ML IVC ONE (16:01)
[2021-01-13] MEDS ORDERED: Vancomycin 1,500 MG/265 ML IV.SOLN IVPB STA (16:04)
[2021-01-13 16:05] LABS: Bilirubin,Urine Negative (Negative); Blood,Urine Negative (Negative); Clarity,Urine Clear (Clear); Color,Urine Light-Yellow (Yellow); Glucose,Urine (UA) Normal (Normal); Ketones,Urine Negative (Negative); Leukocyte Esterase,Urine Negative (Negative); Nitrite,Urine Negative (Negative); PH,Urine 5.5 pH Units (5.0-8.0); Protein,Urine Trace mg/dL (Neg-Trace); Specific Gravity,Urine 1.015 (1.010-1.025); Urobilinogen,Urine Normal (Normal)
[2021-01-13] MEDS ORDERED: 0.9 % Sodium Chloride 500 ML ONE (16:05)
[2021-01-13 16:13] LABS: VBG HCO3 35 mEq/L (21-27); VBG PCO2 117 mmHg (41-51); VBG PH 7.09 pH Units (7.32-7.42); VBG PO2 129 mmHg (25-50)
[2021-01-13 16:16] LABS: Amphetamine Screen,Urine Negative ng/mL (Cutoff=1000); Barbiturate Screen,Urine Negative ng/mL (Cutoff=200); Benzodiazepines Screen,Urine Negative ng/mL (Cutoff=200); Cannabinoid Screen,Urine Negative ng/mL (Cutoff = 50); Cocaine Screen,Urine Negative ng/mL (Cutoff= 300); Opiate Screen,Urine Negative ng/mL (Cutoff=300); Phencyclidine Screen,Urine Negative ng/mL (Cutoff=25)
[2021-01-13 16:22] LABS: BUN/Creatinine Ratio 17 (6-26); Blood Urea Nitrogen 49 mg/dL (8-23); Calcium 9.5 mg/dL (8.6-10.3); Carbon Dioxide 34 mEq/L (23-29); Chloride 97 mEq/L (98-107); Glucose 219 mg/dL (70-105); Osmolality,Calculated 304 (280-300); Potassium 4.9 mEq/L (3.5-5.1); Sodium 137 mEq/L (136-145); eGFR For African Americans 27 (> 60); eGFR For Non-African Americans 22 (> 60)
[2021-01-13 16:23] LABS: Troponin I < 0.03 ng/mL (< 0.04)
[2021-01-13] MEDS: FentaNYL (PF) 1,000 MCG/100 ML IV.SOLN IVC SCH ×3 (16:26→23:46)
[2021-01-13 16:29] LABS: ABG Base Excess 4 mEq/L (-2 to 3); ABG HCO3 35 mEq/L (21-27); ABG Oxygen Saturation 100 % (95-98); ABG PCO2 89 mmHg (35-45); ABG PO2 519 mmHg (85-104); ABG TCO2 38 mEq/L (20-26); Blood Gas VT 500 cc
[2021-01-13] MEDS ORDERED: Naloxone 0.4 MG/ML INJ IVP PRN (17:36)
[2021-01-13] MEDS ORDERED: Artificial Tears SOLN 15 ML BOTTLE BOTH EYES PRN (17:44)
[2021-01-13] MEDS ORDERED: Midazolam HCl 50 MG/100 ML IV.SOLN IVC SCH (18:00)
[2021-01-13] MEDS ORDERED: Dextrose Gel 15 GM/37.5 ML TUBE PO PRN ×2 (18:17)
[2021-01-13] MEDS ORDERED: D5% in Water 1,000 ML IVC PRN (18:17)
[2021-01-13] MEDS ORDERED: *HR* Dextrose 50 % in Water (Vial) 50 ML VIAL IVP PRN (18:17)
[2021-01-13] MEDS: Ipratropium/Albuterol Neb 3 ML IH SCH ×2 (20:02→23:01)
[2021-01-13] MEDS: Budesonide/Formoterol 160/4.5 1 PUFF INH IH SCH (20:03)
[2021-01-13] MEDS: *HR* LORazepam 1 MG TABLET PO SCH (20:51)
[2021-01-13] MEDS: Chlorhexidine Rinse 15 ML MOUTHWASH MM SCH (20:54)
[2021-01-13] MEDS: Ringers Solution, Lactated 1,000 ML IVC SCH (20:54)
[2021-01-13] MEDS: Artificial Tears SOLN 15 ML BOTTLE BOTH EYES SCH ×2 (20:54→23:50)
[2021-01-13] MEDS: Fenofibrate 54 MG TABLET PO SCH (20:58)
[2021-01-13 21:19] LABS: ABG Base Excess 4 mEq/L (-2 to 3); ABG HCO3 32 mEq/L (21-27); ABG Oxygen Saturation 88 % (95-98); ABG PCO2 67 mmHg (35-45); ABG PH 7.28 pH Units (7.32-7.45); ABG PO2 64 mmHg (85-104); ABG TCO2 34 mEq/L (20-26); Blood Gas Modality AF; Blood Gas VT 500 cc
[2021-01-13 21:34] LABS: ABG Base Excess 3 mEq/L (-2 to 3); ABG HCO3 31 mEq/L (21-27); ABG Oxygen Saturation 88 % (95-98); ABG PCO2 65 mmHg (35-45); ABG PH 7.29 pH Units (7.32-7.45); ABG PO2 63 mmHg (85-104); ABG TCO2 33 mEq/L (20-26); Blood Gas Modality AF; Blood Gas VT 500 cc
[2021-01-13] MEDS: *HR* Heparin 5,000 UNIT/ML VIAL SQ SCH (22:29)
[2021-01-13] MEDS: MethylPREDNISolone 40 MG/ML VIAL IVP SCH (23:49)
[2021-01-13] MEDS: Insulin LISPRO 300 UNITS/3 ML VIAL SUBQ SCH (23:49)
[2021-01-13] MEDS: hydrALAZINE 25 MG TABLET PO SCH (23:49)
[2021-01-14] MEDS: Ipratropium/Albuterol Neb 3 ML IH SCH ×6 (03:23→23:14)
[2021-01-14 03:30] LABS: ABG Base Excess 5 mEq/L (-2 to 3); ABG HCO3 32 mEq/L (21-27); ABG Oxygen Saturation 94 % (95-98); ABG PCO2 61 mmHg (35-45); ABG PH 7.33 pH Units (7.32-7.45); ABG PO2 79 mmHg (85-104); ABG TCO2 34 mEq/L (20-26); Blood Gas Modality AF; Blood Gas VT 500 cc
[2021-01-14] MEDS: Artificial Tears SOLN 15 ML BOTTLE BOTH EYES SCH ×2 (03:51→07:25)
[2021-01-14 04:12] LABS: Basophils % 0.1 %; Hematocrit 31.3 % (37.5-50.1); Immature Granulocytes % 0.3 % (0-4); Lymphocytes # 0.6 K/mcL (0.6-4.6); Lymphocytes % 3.5 %; Mean Corpuscular HGB Conc 31.3 g/dL (31.6-35.5); Mean Corpuscular Hemoglobin 31.2 pg (28.0-33.3); Mean Corpuscular Volume 99.7 fL (83.0-100.0); Mean Platelet Volume 9.9 fL (9.4-12.4); Monocytes # 0.2 K/mcL (0.0-1.3); Monocytes % 1.5 %; Neutrophils # 14.9 K/mcL (1.6-8.9); Platelet Count 346 K/mcL (140-400); Red Blood Count 3.14 M/mcL (4.19-5.50); Red Cell Distribution Width 12.8 % (11.5-14.5); Segmented Neutrophils % 94.6 %; White Blood Count 15.8 K/mcL (4.3-11.1)
[2021-01-14 04:15] LABS: Hemoglobin 9.8 g/dL (12.9-16.9)
[2021-01-14 04:28] LABS: VBG Ionized Calcium 1.17 mmol/L (1.15-1.35)
[2021-01-14 04:43] LABS: Calcium 8.9 mg/dL (8.6-10.3); Magnesium 2.3 mg/dL (1.6-2.6); Phosphorous 2.6 mg/dL (2.7-4.5); Potassium 4.9 mEq/L (3.5-5.1)
[2021-01-14] MEDS: Insulin LISPRO 300 UNITS/3 ML VIAL SUBQ SCH ×3 (05:51→20:41)
[2021-01-14] MEDS: *HR* Heparin 5,000 UNIT/ML VIAL SQ SCH ×3 (05:51→20:41)
[2021-01-14] MEDS: Budesonide/Formoterol 160/4.5 1 PUFF INH IH SCH ×2 (07:16→19:36)
[2021-01-14] MEDS: Fenofibrate 54 MG TABLET PO SCH ×2 (07:26→20:39)
[2021-01-14] MEDS: Chlorhexidine Rinse 15 ML MOUTHWASH MM SCH (07:26)
[2021-01-14] MEDS: *HR* LORazepam 1 MG TABLET PO SCH ×2 (07:26→20:39)
[2021-01-14] MEDS: Pantoprazole 40 MG VIAL IVP SCH (07:26)
[2021-01-14] MEDS: Aspirin 81 MG TAB.CHEW PO SCH (07:26)
[2021-01-14] MEDS: MethylPREDNISolone 40 MG/ML VIAL IVP SCH ×2 (07:26→08:27)
[2021-01-14] MEDS: hydrALAZINE 25 MG TABLET PO SCH ×3 (07:26→23:20)
[2021-01-14] MEDS: Azithromycin 500 MG in 0.9 % Sodium Chloride 250 ML IVPB SCH (08:26)
[2021-01-14] MEDS: cefTRIAXone 1,000 MG in Water for inj. (sterile) 10 ML IVP SCH (08:26)
[2021-01-14 08:31] LABS: Potassium,Urine 27.1 mEq/L; Protein/Creatinine Ratio,Urine 0.46 mg/mg (0.00-0.20); Sodium, Urine 31.7 mEq/L
[2021-01-14] MEDS ORDERED: Aspirin Enteric Coated 81 MG Tablet PO SCH (09:00)
[2021-01-14] MEDS: Ringers Solution, Lactated 1,000 ML IVC SCH ×2 (09:34→13:35)
[2021-01-14 09:35] LABS: Hematocrit 32.8 % (37.5-50.1); Hemoglobin 9.9 g/dL (12.9-16.9)
[2021-01-14 09:50] LABS: Prothrombin Time 11.1 Seconds (9.4-12.1)
[2021-01-14 09:53] LABS: Activated Partial Thrombo Time 27.8 Seconds (26.0-36.0)
[2021-01-14 10:01] LABS: Albumin 3.9 g/dL (3.5-5.7); Albumin/Globulin Ratio 1.4 (1.1-2.2); Bilirubin,Indirect 0.2 mg/dL (0.0-1.0); Bilirubin,Total 0.2 mg/dL (0.3-1.0); Globulin 2.8 g/dL (2.4-3.5); Total Protein 6.7 g/dL (6.4-8.9)
[2021-01-14 14:57] LABS: Potassium 5.2 mEq/L (3.5-5.1)
[2021-01-14] MEDS ORDERED: Cefepime HCl 2,000 MG in Water for inj. (sterile) 20 ML IVP SCH (16:00)
[2021-01-14] MEDS ORDERED: Calcium Gluconate 1gm/50mL 1 GM/50 ML BAG IVPB ONE (16:29)
[2021-01-14] MEDS ORDERED: Insulin Human Regular 10 UNIT in 0.9 % Sodium Chloride 10 ML IV ONE (16:29)
[2021-01-14] MEDS ORDERED: *HR* Dextrose 50 % in Water (Vial) 50 ML VIAL IVP ONE (16:29)
[2021-01-14] MEDS ORDERED: Insulin LISPRO 300 UNITS/3 ML VIAL SUBQ SCH (16:30)
[2021-01-14] MEDS ORDERED: Perflutren Lipid Microsphere 1.3 ML in 0.9 % Sodium Chloride 8.7 ML IVP PRN (17:26)
[2021-01-14] MEDS: Melatonin 3 MG TABLET PO PRN (21:34)
[2021-01-15] MEDS: Ringers Solution, Lactated 1,000 ML IVC SCH (03:24)
[2021-01-15 03:37] LABS: Basophils % 0.2 %; Eosinophils # 0.1 K/mcL (0.0-0.6); Eosinophils % 0.3 %; Hematocrit 32.8 % (37.5-50.1); Immature Granulocytes % 0.4 % (0-4); Lymphocytes # 1.8 K/mcL (0.6-4.6); Lymphocytes % 11.2 %; Mean Corpuscular HGB Conc 30.5 g/dL (31.6-35.5); Mean Corpuscular Hemoglobin 30.4 pg (28.0-33.3); Mean Corpuscular Volume 99.7 fL (83.0-100.0); Mean Platelet Volume 9.8 fL (9.4-12.4); Monocytes # 1.3 K/mcL (0.0-1.3); Neutrophils # 12.8 K/mcL (1.6-8.9); Platelet Count 364 K/mcL (140-400); Red Blood Count 3.29 M/mcL (4.19-5.50); Red Cell Distribution Width 12.9 % (11.5-14.5); Segmented Neutrophils % 79.9 %
[2021-01-15 03:38] LABS: VBG Ionized Calcium 1.23 mmol/L (1.15-1.35)
[2021-01-15 03:57] LABS: Magnesium 2.1 mg/dL (1.6-2.6); Phosphorous 3.2 mg/dL (2.7-4.5); Potassium 4.2 mEq/L (3.5-5.1)
[2021-01-15 03:59] LABS: Troponin I 0.06 ng/mL (< 0.04)
[2021-01-15] MEDS: Ipratropium/Albuterol Neb 3 ML IH SCH ×6 (03:59→23:18)
[2021-01-15] MEDS: *HR* Heparin 5,000 UNIT/ML VIAL SQ SCH ×3 (05:21→20:25)
[2021-01-15] MEDS: Fenofibrate 54 MG TABLET PO SCH ×2 (07:11→20:20)
[2021-01-15] MEDS: cefTRIAXone 1,000 MG in Water for inj. (sterile) 10 ML IVP SCH (07:11)
[2021-01-15] MEDS: hydrALAZINE 25 MG TABLET PO SCH ×3 (07:11→23:18)
[2021-01-15] MEDS: *HR* LORazepam 1 MG TABLET PO SCH ×2 (07:11→20:20)
[2021-01-15] MEDS: MethylPREDNISolone 40 MG/ML VIAL IVP SCH (07:12)
[2021-01-15] MEDS: Azithromycin 500 MG in 0.9 % Sodium Chloride 250 ML IVPB SCH (07:12)
[2021-01-15] MEDS: Pantoprazole 40 MG VIAL IVP SCH (07:12)
[2021-01-15] MEDS ORDERED: Albumin 25% 25gram/100mL 25 GM/100 ML IV.SOLN IVPB ONE (07:14)
[2021-01-15] MEDS ORDERED: Furosemide 40 MG/4 ML VIAL IVP ONE (07:15)
[2021-01-15] MEDS: Budesonide/Formoterol 160/4.5 1 PUFF INH IH SCH ×2 (07:17→20:24)
[2021-01-15] MEDS: Insulin LISPRO 300 UNITS/3 ML VIAL SUBQ SCH ×4 (07:54→20:17)
[2021-01-15] MEDS: Aspirin 81 MG TAB.CHEW PO SCH (07:54)
[2021-01-15] MEDS: *HR* HYDROcodone/Acet 5/325 mg TABLET PO PRN (12:21)
[2021-01-15 15:44] LABS: Calcium 9.1 mg/dL (8.6-10.3); Potassium 4.5 mEq/L (3.5-5.1)
[2021-01-15] MEDS: Melatonin 3 MG TABLET PO PRN (20:19)
[2021-01-16] MEDS: Ipratropium/Albuterol Neb 3 ML IH SCH ×5 (03:40→20:24)
[2021-01-16 05:10] LABS: Basophils # 0.1 K/mcL (0.0-0.2); Basophils % 0.5 %; Eosinophils # 0.2 K/mcL (0.0-0.6); Eosinophils % 2.3 %; Hematocrit 31.4 % (37.5-50.1); Hemoglobin 9.9 g/dL (12.9-16.9); Immature Granulocytes % 0.2 % (0-4); Lymphocytes % 20.4 %; Mean Corpuscular HGB Conc 31.5 g/dL (31.6-35.5); Mean Corpuscular Hemoglobin 30.6 pg (28.0-33.3); Mean Corpuscular Volume 96.9 fL (83.0-100.0); Mean Platelet Volume 9.7 fL (9.4-12.4); Monocytes # 0.9 K/mcL (0.0-1.3); Monocytes % 9.2 %; Neutrophils # 6.6 K/mcL (1.6-8.9); Platelet Count 340 K/mcL (140-400); Red Blood Count 3.24 M/mcL (4.19-5.50); Red Cell Distribution Width 12.5 % (11.5-14.5); Segmented Neutrophils % 67.4 %; White Blood Count 9.7 K/mcL (4.3-11.1)
[2021-01-16 05:10] LABS: VBG Ionized Calcium 1.15 mmol/L (1.15-1.35)
[2021-01-16 05:27] LABS: Magnesium 2.1 mg/dL (1.6-2.6); Phosphorous 3.5 mg/dL (2.7-4.5); Potassium 3.9 mEq/L (3.5-5.1)
[2021-01-16] MEDS: *HR* Heparin 5,000 UNIT/ML VIAL SQ SCH ×3 (05:44→20:09)
[2021-01-16] MEDS: Budesonide/Formoterol 160/4.5 1 PUFF INH IH SCH ×2 (08:20→20:24)
[2021-01-16] MEDS: *HR* HYDROcodone/Acet 5/325 mg TABLET PO PRN ×2 (08:50→18:23)
[2021-01-16] MEDS: Pantoprazole 40 MG VIAL IVP SCH (08:51)
[2021-01-16] MEDS: predniSONE 20 MG TABLET PO SCH (08:51)
[2021-01-16] MEDS: cefTRIAXone 1,000 MG in Water for inj. (sterile) 10 ML IVP SCH (08:51)
[2021-01-16] MEDS: *HR* LORazepam 1 MG TABLET PO SCH ×2 (08:52→20:09)
[2021-01-16] MEDS: Azithromycin 500 MG in 0.9 % Sodium Chloride 250 ML IVPB SCH (08:52)
[2021-01-16] MEDS: hydrALAZINE 25 MG TABLET PO SCH ×3 (08:52→23:37)
[2021-01-16] MEDS: Aspirin 81 MG TAB.CHEW PO SCH (08:52)
[2021-01-16] MEDS: Insulin LISPRO 300 UNITS/3 ML VIAL SUBQ SCH ×4 (08:52→20:10)
[2021-01-16] MEDS: Fenofibrate 54 MG TABLET PO SCH ×2 (08:52→20:09)
[2021-01-16] MEDS ORDERED: Furosemide 40 MG/4 ML VIAL IVP ONE (15:55)
[2021-01-16] MEDS: Melatonin 3 MG TABLET PO PRN (20:09)
[2021-01-17] MEDS: Ipratropium/Albuterol Neb 3 ML IH SCH ×7 (00:05→23:17)
[2021-01-17] MEDS: *HR* Heparin 5,000 UNIT/ML VIAL SQ SCH ×2 (05:07→12:02)
[2021-01-17 05:47] LABS: Basophils % 0.4 %; Red Cell Distribution Width 12.1 % (11.5-14.5)
[2021-01-17 05:49] LABS: Eosinophils # 0.2 K/mcL (0.0-0.6); Eosinophils % 2.4 %; Hematocrit 31.8 % (37.5-50.1); Hemoglobin 10.2 g/dL (12.9-16.9); Immature Granulocytes % 0.2 % (0-4); Immature Platelets 3.4 % (1.1-6.1); Lymphocytes # 1.9 K/mcL (0.6-4.6); Lymphocytes % 19.9 %; Mean Corpuscular HGB Conc 32.1 g/dL (31.6-35.5); Mean Corpuscular Hemoglobin 29.8 pg (28.0-33.3); Mean Platelet Volume 9.9 fL (9.4-12.4); Monocytes # 0.8 K/mcL (0.0-1.3); Monocytes % 8.2 %; Neutrophils # 6.5 K/mcL (1.6-8.9); Platelet Count 378 K/mcL (140-400); Red Blood Count 3.42 M/mcL (4.19-5.50); Segmented Neutrophils % 68.9 %; White Blood Count 9.4 K/mcL (4.3-11.1)
[2021-01-17 06:04] LABS: Calcium 9.5 mg/dL (8.6-10.3); Potassium 3.7 mEq/L (3.5-5.1)
[2021-01-17] MEDS: Pantoprazole 40 MG VIAL IVP SCH (07:13)
[2021-01-17] MEDS: Azithromycin 500 MG in 0.9 % Sodium Chloride 250 ML IVPB SCH (07:13)
[2021-01-17] MEDS: predniSONE 20 MG TABLET PO SCH (07:14)
[2021-01-17] MEDS: Fenofibrate 54 MG TABLET PO SCH (07:14)
[2021-01-17] MEDS: cefTRIAXone 1,000 MG in Water for inj. (sterile) 10 ML IVP SCH (07:14)
[2021-01-17] MEDS: *HR* LORazepam 1 MG TABLET PO SCH ×2 (07:15→19:49)
[2021-01-17] MEDS: Aspirin 81 MG TAB.CHEW PO SCH (07:15)
[2021-01-17] MEDS: hydrALAZINE 25 MG TABLET PO SCH ×2 (07:15→15:52)
[2021-01-17] MEDS: Insulin LISPRO 300 UNITS/3 ML VIAL SUBQ SCH ×4 (07:31→21:16)
[2021-01-17] MEDS: Budesonide/Formoterol 160/4.5 1 PUFF INH IH SCH ×2 (07:36→19:57)
[2021-01-17] MEDS ORDERED: D5% in Water 1,000 ML IVC PRN (12:50)
[2021-01-17] MEDS ORDERED: *HR* Dextrose 50 % in Water (Vial) 50 ML VIAL IVP PRN (12:50)
[2021-01-17] MEDS ORDERED: Dextrose Gel 15 GM/37.5 ML TUBE PO PRN ×2 (12:50)
[2021-01-17] MEDS ORDERED: Naloxone 0.4 MG/ML INJ IVP PRN (12:50)
[2021-01-18] MEDS: *HR* Heparin 5,000 UNIT/ML VIAL SQ SCH ×4 (00:19→20:40)
[2021-01-18] MEDS: hydrALAZINE 25 MG TABLET PO SCH ×3 (00:20→15:44)
[2021-01-18 02:21] LABS: VBG Ionized Calcium 1.13 mmol/L (1.15-1.35)
[2021-01-18 02:22] LABS: Basophils % 0.2 %; Eosinophils # 0.3 K/mcL (0.0-0.6); Eosinophils % 2.9 %; Hematocrit 31.3 % (37.5-50.1); Hemoglobin 10.1 g/dL (12.9-16.9); Immature Granulocytes % 0.4 % (0-4); Lymphocytes # 1.8 K/mcL (0.6-4.6); Lymphocytes % 17.2 %; Mean Corpuscular HGB Conc 32.3 g/dL (31.6-35.5); Mean Corpuscular Hemoglobin 30.4 pg (28.0-33.3); Mean Corpuscular Volume 94.3 fL (83.0-100.0); Mean Platelet Volume 9.6 fL (9.4-12.4); Monocytes # 0.9 K/mcL (0.0-1.3); Monocytes % 8.2 %; Neutrophils # 7.6 K/mcL (1.6-8.9); Platelet Count 381 K/mcL (140-400); Red Blood Count 3.32 M/mcL (4.19-5.50); Red Cell Distribution Width 12.1 % (11.5-14.5); Segmented Neutrophils % 71.1 %; White Blood Count 10.6 K/mcL (4.3-11.1)
[2021-01-18 02:39] LABS: Magnesium 2.3 mg/dL (1.6-2.6)
[2021-01-18 02:40] LABS: Calcium 9.1 mg/dL (8.6-10.3); Potassium 3.7 mEq/L (3.5-5.1)
[2021-01-18] MEDS: Ipratropium/Albuterol Neb 3 ML IH SCH ×6 (03:52→23:30)
[2021-01-18] MEDS: Budesonide/Formoterol 160/4.5 1 PUFF INH IH SCH ×2 (07:35→20:10)
[2021-01-18] MEDS: Insulin LISPRO 300 UNITS/3 ML VIAL SUBQ SCH ×4 (07:47→20:34)
[2021-01-18] MEDS: predniSONE 20 MG TABLET PO SCH (07:48)
[2021-01-18] MEDS: Aspirin 81 MG TAB.CHEW PO SCH (07:48)
[2021-01-18] MEDS: *HR* HYDROcodone/Acet 5/325 mg TABLET PO PRN ×3 (07:50→21:34)
[2021-01-18] MEDS: *HR* LORazepam 1 MG TABLET PO SCH ×2 (07:52→20:26)
[2021-01-18] MEDS ORDERED: Azithromycin 500 MG in 0.9 % Sodium Chloride 250 ML IVPB SCH (08:00)
[2021-01-18] MEDS: cefTRIAXone 1,000 MG in Water for inj. (sterile) 10 ML IVP SCH (08:02)
[2021-01-18] MEDS ORDERED: Pantoprazole 40 MG VIAL IVP SCH (09:00)
[2021-01-18] MEDS: Melatonin 3 MG TABLET PO PRN (20:26)
[2021-01-19] MEDS: hydrALAZINE 25 MG TABLET PO SCH ×3 (01:21→16:48)
[2021-01-19] MEDS: *HR* HYDROcodone/Acet 5/325 mg TABLET PO PRN ×3 (03:30→16:53)
[2021-01-19] MEDS: Ipratropium/Albuterol Neb 3 ML IH SCH ×6 (03:45→22:56)
[2021-01-19] MEDS: *HR* Heparin 5,000 UNIT/ML VIAL SQ SCH ×3 (05:20→20:38)
[2021-01-19] MEDS: Budesonide/Formoterol 160/4.5 1 PUFF INH IH SCH ×2 (07:30→20:10)
[2021-01-19] MEDS: predniSONE 20 MG TABLET PO SCH (09:20)
[2021-01-19] MEDS: Insulin LISPRO 300 UNITS/3 ML VIAL SUBQ SCH ×4 (09:20→20:37)
[2021-01-19] MEDS: Aspirin 81 MG TAB.CHEW PO SCH (09:21)
[2021-01-19] MEDS: *HR* LORazepam 1 MG TABLET PO SCH ×2 (09:21→20:37)
[2021-01-19] MEDS: cefTRIAXone 1,000 MG in Water for inj. (sterile) 10 ML IVP SCH (09:22)
[2021-01-19] MEDS: Sennosides/Docusate Sodium TABLET PO SCH ×2 (14:32→20:37)
[2021-01-20] MEDS: hydrALAZINE 25 MG TABLET PO SCH ×2 (00:14→09:24)
[2021-01-20] MEDS: Melatonin 3 MG TABLET PO PRN (00:16)
[2021-01-20] MEDS: *HR* HYDROcodone/Acet 5/325 mg TABLET PO PRN (00:16)
[2021-01-20] MEDS: Ipratropium/Albuterol Neb 3 ML IH SCH ×3 (03:22→11:37)
[2021-01-20] MEDS: *HR* Heparin 5,000 UNIT/ML VIAL SQ SCH (05:12)
[2021-01-20] MEDS: Budesonide/Formoterol 160/4.5 1 PUFF INH IH SCH (07:29)
[2021-01-20 07:30] VITALS: BP 171/72
[2021-01-20] MEDS: Insulin LISPRO 300 UNITS/3 ML VIAL SUBQ SCH ×2 (09:18→12:17)
[2021-01-20] MEDS: cefTRIAXone 1,000 MG in Water for inj. (sterile) 10 ML IVP SCH (09:22)
[2021-01-20] MEDS: Aspirin 81 MG TAB.CHEW PO SCH (09:24)
[2021-01-20] MEDS: *HR* LORazepam 1 MG TABLET PO SCH (09:24)
[2021-01-20] MEDS: predniSONE 20 MG TABLET PO SCH (09:24)
[2021-01-20] MEDS: Sennosides/Docusate Sodium TABLET PO SCH (09:24)
[2021-01-20] MEDS ORDERED: polyethylene glycoL 3350 17 GM POWD.PACK PO SCH (10:00)
== END 2021-01-20 14:26 | disposition home or self-care (01) | DRG 208 ==
LOC: EMEROOARM 15:35 → ICNU 17:55 → SUATTDRO 17:55 → ICNU 19:48 → 2ANU 01-17 17:23
PROVIDERS: ADMIT Internal Medicine; ATTEND Student in an Organized Health Care Education/Training Program